=== PATIENT | female | born 1955 ===

== ENCOUNTER 2017-04-06 13:52 | Inpatient (IN) | payer MEDICARE ==
[2017-04-06 13:53] VITALS: BMI 28.8
[2017-04-06] MEDS ORDERED: Levalbuterol 1.25 MG/3 ML Inhal Soln UD INH ONE (14:14)
--- NOTE | 2017-04-06 14:37 | ED PDOC ---
HPI: SOB/CHF/COPD Time Seen by Provider: 04/06/17 14:00 Chief Complaint (Nursing): Shortness Of Breath Chief Complaint (Provider): shortness of breath History Per: Patient (61 y/o female h/o Asthma here with cough/sob ongoing and worsening recently. Patient states she has been using duoneb/singulair for asthma. Has had recent treatment with medrol dose pack. Notes she is anxious when she visits doctors. Denies any chest pain/fevers/chills.) Past Medical History Reviewed: Historical Data, Nursing Documentation, Vital Signs Vital Signs: Last Vital Signs Temp 99.9 F H 04/06/17 13:56 Pulse 136 H 04/06/17 13:56 Resp 22 04/06/17 15:11 BP 158/108 H 04/06/17 13:56 Pulse Ox 98 04/06/17 14:46 - Medical History PMH: Anxiety, Arthritis (KNEES AND HANDS WHEN COLD), Asthma, COPD, Depression, Diabetes, HTN, Hypercholesterolemia, Kidney Stones (RIGHT), Peripheral Edema, Chronic Kidney Disease Denies: Atrial Fibrillation, HIV - Family History Family History: States: Unknown Family Hx - Immunization History Hx Tetanus Toxoid Vaccination: No Hx Influenza Vaccination: Yes Hx Pneumococcal Vaccination: Yes - Home Medications Home Medications: Ambulatory Orders Medication Instructions Recorded Albuterol 0.083% [Albuterol 0.083% 3 ml IH Q6H PRN 11/04/15 Inhal Sugar (2.5 mg/3 ml) UD] Allopurinol 300 mg PO DAILY 11/04/15 Bepotastine Besilate [Bepreve] 1 drop BOTHEYES DAILY 11/04/15 Lisinopril [Zestril] 40 mg PO DAILY 11/04/15 Montelukast [Singulair] 10 mg PO HS 11/04/15 Rosuvastatin Calcium [Crestor] 20 mg PO HS 11/04/15 Albuterol HFA [Ventolin HFA 90 2 puff IH Q4H PRN 10/16/16 mcg/actuation (8 g)] Aspirin [Ecotrin] 81 mg PO DAILY 10/16/16 Doxazosin [Cardura] 2 mg PO HS 10/16/16 Linagliptin/Metformin HCl 1 tab PO DAILY 10/16/16 [Jentadueto 2.5 mg-1000 mg Tab] Olmesartan/Hydrochlorothiazide 1 tab PO DAILY 10/16/16 [Benicar Hct 40-12.5 mg Tablet] Budesonide/Formoterol Fumarate 1 puff IH Q12H 04/06/17 [Symbicort 160-4.5 Mcg Inhaler] - Allergies Allergies/Adverse Reactions: Allergies Allergy/AdvReac Type Severity Reaction Status Date / Time POLLEN Allergy Intermediate ITCHING Uncoded 04/25/14 14:59 Review of Systems ROS Statement: Except As Marked, All Systems Reviewed And Found Negative Respiratory: Positive for: Cough, Shortness of Breath Physical Exam - Reviewed Nursing Documentation Reviewed: Yes Vital Signs Reviewed: Yes - Physical Exam Appears: Positive for: Well, Non-toxic, No Acute Distress Head Exam: Positive for: ATRAUMATIC, NORMAL INSPECTION, NORMOCEPHALIC Skin: Positive for: Normal Color, Warm, DRY Eye Exam: Positive for: EOMI, Normal appearance, PERRL ENT: Positive for: Normal ENT Inspection Neck: Positive for: Normal, Painless ROM Cardiovascular/Chest: Positive for: Regular Rate, Rhythm Respiratory: Positive for: Normal Breath Sounds, Wheezing Gastrointestinal/Abdominal: Positive for: Normal Exam, Bowel Sounds, Soft Back: Positive for: Normal Inspection Extremity: Positive for: Normal ROM Neurologic/Psych: Positive for: Alert, Oriented - Laboratory Results Result Diagrams: 04/06/17 14:40 04/06/17 14:40 - ECG O2 Sat by Pulse Oximetry: 98 - Progress ED Course And Treament: Patient has minimal respiratory distress noted in ED, able to talk in full sentences. xopenex x 1 treatment solumedrol 125 mg iv x 1 dose ativan 0.5mg iv x 1 dose cxr: neg d/w dr. sterling admit for asthma exacerbation and tachycardia Disposition - Clinical Impression Clinical Impression: Asthma exacerbation - Patient ED Disposition Is Patient to be Admitted: Yes - Disposition Disposition Time: 18:03 Condition: FAIR
[2017-04-06 15:03] LABS: BASO # 0.1 K/uL (0.0-0.2); BASO % 1.1 % (0.0-2.0); EOS % 11.3 % (0.0-4.0); HEMOGLOBIN 11.8 g/dL (12.0-16.0); LYMPH # 1.3 K/uL (1.0-4.3); LYMPH % 14.1 % (20.0-40.0); MEAN CELL VOLUME 90.9 fl (81.0-99.0); MEAN CORPUSCULAR HEMOGLOBIN 30.4 pg (27.0-31.0); MEAN CORPUSCULAR HGB CONC 33.5 g/dL (33.0-37.0); MEAN PLATELET VOLUME 9.1 fl (7.2-11.7); MONO # 0.6 K/uL (0.0-0.8); MONO % 6.5 % (0.0-10.0); NEUT # 6.1 K/uL (1.8-7.0); RBC 3.87 Mil/uL (3.80-5.20); RED CELL DISTRIBUTION WIDTH 14.2 % (11.5-14.5); WHITE BLOOD COUNT 9.2 K/uL (4.8-10.8)
[2017-04-06 15:11] LABS: ALB/GLOB RATIO 1.5 (1.0-2.1); ALBUMIN 4.3 g/dL (3.5-5.0); ALT/SGPT 59 U/L (9-52); AST/SGOT 46 U/L (14-36); BLOOD UREA NITROGEN 19 mg/dl (7-17); CALCIUM 9.8 mg/dL (8.4-10.2); GFR AFRICAN-AMERICAN 55; GFR NON-AFRICAN AMERICAN 45
[2017-04-06 15:21] LABS: B-TYPE NATRIURETIC PEPTIDE 53.9 pg/ml (0-900)
--- NOTE | 2017-04-06 17:05 | RAD ---
HISTORY: Shortness of breath. COMPARISON: 10/20/2016. FINDINGS: LUNGS: No active pulmonary disease. PLEURA: No significant pleural effusion identified, no pneumothorax apparent. CARDIOVASCULAR: No radiographic findings to suggest acute or significant cardiovascular disease. OSSEOUS STRUCTURES: No significant abnormalities. VISUALIZED UPPER ABDOMEN: Normal. OTHER FINDINGS: None. IMPRESSION: No active disease. No significant interval change compared to the prior examination(s).
--- NOTE | 2017-04-06 20:42 | CARD ---
APPROVED REPORT EKG Measurement Heart [id number] ID [id number] <Conclusion> Sinus tachycardia Nonspecific ST and T wave abnormality Abnormal ECG
[2017-04-07] MEDS ORDERED: Albuterol 0.083% Inhal Sol (2.5 mg/3 mL) UD IH PRN (00:40)
[2017-04-07] MEDS ORDERED: Albuterol HFA 90 mcg/actuation (8 g) IH PRN (00:40)
[2017-04-07] MEDS ORDERED: Patient's Own Med (Budesonide/Formoterol Fumarate [Symbicort 160-4.5 Mcg Inhaler] 1 PUFF) IH SCH (00:45)
[2017-04-07] MEDS: methylPREDNISolone 40 MG in Sodium Chloride 0.9% 50 ML IVPB SCH ×3 (02:10→21:53)
[2017-04-07 06:55] LABS: HEMOGLOBIN 11.9 g/dL (12.0-16.0); MEAN CELL VOLUME 92.2 fl (81.0-99.0); MEAN CORPUSCULAR HEMOGLOBIN 29.6 pg (27.0-31.0); MEAN CORPUSCULAR HGB CONC 32.1 g/dL (33.0-37.0); RBC 4.01 Mil/uL (3.80-5.20); WHITE BLOOD COUNT 13.7 K/uL (4.8-10.8)
[2017-04-07 06:56] LABS: ALB/GLOB RATIO 1.5 (1.0-2.1); ALBUMIN 4.3 g/dL (3.5-5.0); CALCIUM 9.9 mg/dL (8.4-10.2)
[2017-04-07] MEDS: Fluticasone-Salmeterol 250-50mcg Diskus IH SCH ×2 (08:58→21:52)
[2017-04-07] MEDS: Enoxaparin 40 mg Syringe SC SCH (08:59)
[2017-04-07] MEDS ORDERED: BEPOTASTINE BESILATE BOTHEYES SCH (09:00)
[2017-04-07] MEDS ORDERED: Enoxaparin 30 mg Syringe SC SCH (09:00)
[2017-04-07] MEDS ORDERED: Patient's Own Med (Olmesartan/Hydrochlorothiazide [Benicar Hct 40-12.5 Mg Tablet] 1 TAB) PO SCH ×2 (09:00)
[2017-04-07] MEDS: Insulin Regular 100 units/ml SC SCH ×4 (09:07→21:54)
--- NOTE | 2017-04-07 11:18 | CP.PCM.HP ---
<VaughnjamesTunde - Last Filed: 04/07/17 13:24> History of Present Illness - History of Present Illness History of Present Illness: 61 y/o female with PMHx remarkable COPD, HTN, HLD, DM, Arthritis, anxiety, and Asthma complaining of worsening cough and sob for the past several days. Patient states she has been using duoneb/singulair for asthma but it has only been alleviating symptoms minimally. Has had recent treatment with medrol dose pack. Denies any fever/chills, headaches, dizziness, lightheadness, CP/ Palpitatons/LUTHER, orthopnea, N/V/D/C, urinary symptoms. Present on Admission - Present on Admission Any Indicators Present on Admission: No Review of Systems - Review of Systems All systems: reviewed and no additional remarkable complaints except - Constitutional Constitutional: As Per HPI Past Patient History - Past Medical History & Family History Past Medical History?: Yes Past Family History: Reviewed and not pertinent - Past Social History Smoking Status: Former Smoker Alcohol: None Drugs: Denies Home Situation {Lives}: With Family Domestic Violence: Negative - CARDIAC Hx Cardiac Disorders: Yes Hx Atrial Fibrillation: No Hx Hypercholesterolemia: Yes Hx Hypertension: Yes Hx Peripheral Edema: Yes - PULMONARY Hx Respiratory Disorders: Yes Hx Asthma: Yes Hx Chronic Obstructive Pulmonary Disease (COPD): Yes - NEUROLOGICAL Hx Neurological Disorder: No Other/Comment: c/o occasional anxiety and depression - HEENT Hx HEENT Problems: Yes Hx Cataracts: Yes (have been corrected) Other/Comment: Allergic Rhinitis - RENAL Hx Chronic Kidney Disease: No Other/Comment: stone removal in the past - ENDOCRINE/METABOLIC Hx Endocrine Disorders: Yes Hx Diabetes Mellitus Type 2: Yes - HEMATOLOGICAL/ONCOLOGICAL Hx Blood Disorders: Yes Hx Human Immunodeficiency Virus (HIV): No - INTEGUMENTARY Hx Dermatological Problems: No - MUSCULOSKELETAL/RHEUMATOLOGICAL Hx Musculoskeletal Disorders: Yes Hx Arthritis: Yes (KNEES AND HANDS WHEN COLD) Hx Falls: No - GASTROINTESTINAL Hx Gastrointestinal Disorders: No - GENITOURINARY/GYNECOLOGICAL Hx Genitourinary Disorders: No Hx Urinary Tract Infection: No - PSYCHIATRIC Hx Psychophysiologic Disorder: Yes Hx Anxiety: Yes Hx Depression: Yes - SURGICAL HISTORY Hx Surgeries: Yes Hx Cataract Extraction: Yes (BILATERAL) Other/Comment: CYSTO WITH STENTS X2 - ANESTHESIA Hx Anesthesia: Yes Hx Anesthesia Reactions: No Hx Malignant Hyperthermia: No Meds Allergies/Adverse Reactions: Allergies Allergy/AdvReac Type Severity Reaction Status Date / Time POLLEN Allergy Intermediate ITCHING Uncoded 04/25/14 14:59 Physical Exam - Constitutional Appears: Non-toxic, No Acute Distress - Head Exam Head Exam: ATRAUMATIC, NORMOCEPHALIC - Eye Exam Eye Exam: EOMI Pupil Exam: PERRL - ENT Exam ENT Exam: Mucous Membranes Moist - Respiratory Exam Respiratory Exam: Accessory Muscle Use, Decreased Breath Sounds, Wheezes, NORMAL BREATHING PATTERN. absent: Clear to Auscultation Bilateral, Rales, Rhonchi, Respiratory Distress - Cardiovascular Exam Cardiovascular Exam: REGULAR RHYTHM, RRR, +S1, +S2. absent: Tachycardia, Gallop , JVD, Rubs, Systolic Murmur - GI/Abdominal Exam GI & Abdominal Exam: Normal Bowel Sounds, Soft. absent: Distended, Firm, Guarding, Hernia, Rebound, Rigid, Tenderness - Extremities Exam Extremities exam: Positive for: normal inspection, pedal pulses present. Negative for: calf tenderness, pedal edema, tenderness - Neurological Exam Neurological exam: Alert, CN II-XII Intact, Oriented x3 Results - Vital Signs Recent Vital Signs: Last Vital Signs Temp 98.3 F 04/07/17 08:13 Pulse 93 H 04/07/17 08:59 Resp 18 04/07/17 08:59 BP 130/78 04/07/17 08:59 Pulse Ox 99 04/07/17 08:59 - Labs Result Diagrams: 04/07/17 05:05 04/07/17 05:05 Labs: Laboratory Results - last 24 hr 04/06/17 04/07/17 04/07/17 21:40 05:05 05:05 WBC 13.7 H RBC 4.01 Hgb 11.9 L Hct 36.9 MCV 92.2 MCH 29.6 MCHC 32.1 L RDW 14.0 Plt Count 191 Sodium 142 Potassium 4.1 Chloride 106 Carbon Dioxide 26 Anion Gap 14 BUN 20 H Creatinine 1.2 Est GFR ( Amer) 55 Est GFR (Non-Af Amer) 45 POC Glucose (mg/dL) 338 H Random Glucose 173 H Calcium 9.9 Total Bilirubin 0.6 AST 39 H ALT 56 H Alkaline Phosphatase 83 Total Protein 7.2 Albumin 4.3 Globulin 2.8 Albumin/Globulin Ratio 1.5 04/07/17 05:12 WBC RBC Hgb Hct MCV MCH MCHC RDW Plt Count Sodium Potassium Chloride Carbon Dioxide Anion Gap BUN Creatinine Est GFR ( Amer) Est GFR (Non-Af Amer) POC Glucose (mg/dL) 156 H Random Glucose Calcium Total Bilirubin AST ALT Alkaline Phosphatase Total Protein Albumin Globulin Albumin/Globulin Ratio Assessment & Plan (1) Asthma exacerbation Status: Acute Priority: Medium (2) Hypertension Assessment and Plan: c/w home meds Status: Chronic Priority: Low (5) DVT prophylaxis Assessment and Plan: -lovenox 40mg SC QD Status: Acute <Hermelindo Andrew - Last Filed: 04/09/17 09:06> Results - Vital Signs Recent Vital Signs: Last Vital Signs Temp 98.2 F 04/09/17 08:13 Pulse 75 04/09/17 08:13 Resp 18 04/09/17 08:13 BP 123/71 04/09/17 08:13 Pulse Ox 98 04/09/17 08:13 - Labs Result Diagrams: 04/09/17 05:00 04/07/17 05:05 Labs: Laboratory Results - last 24 hr 04/08/17 04/08/17 04/08/17 11:44 16:27 21:53 WBC RBC Hgb Hct MCV MCH MCHC RDW Plt Count MPV Neut % (Auto) Lymph % (Auto) Brantley % (Auto) Eos % (Auto) Baso % (Auto) Neut # Lymph # Brantley # Eos # Baso # POC Glucose (mg/dL) 215 H 230 H 214 H 04/09/17 04/09/17 05:00 05:29 WBC 18.9 H RBC 3.63 L Hgb 11.1 L Hct 33.6 L MCV 92.5 MCH 30.5 MCHC 32.9 L RDW 14.6 H Plt Count 184 MPV 9.4 Neut % (Auto) 87.5 H Lymph % (Auto) 5.7 L Brantley % (Auto) 6.7 Eos % (Auto) 0.0 Baso % (Auto) 0.1 Neut # 16.6 H Lymph # 1.1 Brantley # 1.3 H Eos # 0.0 Baso # 0.0 POC Glucose (mg/dL) 137 H Assessment & Plan - Assessment and Plan (Free Text) Plan: I was present during evaluation and discussed with DR Shrestha re plans of care and treatment. Hermelindo Andrew M.D.
--- NOTE | 2017-04-07 14:07 | PQF GENQUE ---
This form is a permanent part of the medical record 04/07/17 Dr. Andrew, Please clarify the type of asthma if known. Documentation of a history of COPD and Asthma. Diagnosis includes Asthma Exacerbation. Patient presents with worsening cough and sob for several days. Treated as an outpatient with Duonebs , Singulair and recent Medrol dose pack. Clarification of your documentation is requested to better reflect the severity of illness and intensity of treatment of your patient. PHYSICIAN'S RESPONSE Type of Asthma: [] Childhood [] Cough variant [] Exercise induced [] Late onset [] Mild intermittent [] Mild persistent [] Moderate persistent [] Severe persistent [] With bronchitis(please clarify acuity of bronchitis) [] With chronic lung disease (please document specific chronic lung disease ) [] Other (please specify) [] Clinically unable to determine [] Unknown Based on your medical judgment of the clinical indicators outlined above please clarify the following: [] Practitioner response [] If unable to determine, please check the box, sign and date. Present On Admission (POA) Indicator: [] Present at the time of admission [] Not present at the time of admission [] Clinically Undetermined In responding to this query, please exercise your independent professional judgment. The fact that a question is asked does not imply that any particular answer is desired or expected. Thank you for your clarification on this documentation. If you have any questions please call:ext [phone] * Thank you, Vinita Ruiz RN CD[facility]
--- NOTE | 2017-04-07 14:12 | PQF DM ---
This form is a permanent part of the medical record 04/07/17 Dr. Andrew, Would you please further clarify the diagnosis of DM Clarification of your documentation is requested to better reflect the severity of illness and intensity of treatment of your patient. Indicators present: [x] Documented diagnosis of Diabetes [] Documented condition [] A1C results [] Diabetic medications [x] Elevated blood glucose [] Nutritional consults [] ADA diet [] Other: [] Location in the medical record that reflects the above clinical findings:[] Treatment Provided: PHYSICIAN'S RESPONSE Based on your medical judgment of the clinical indicators outlined above, are you treating this patient for a known or suspected: [] Diabetes Mellitus, Type I [] Controlled [] Uncontrolled [] Diabetes Mellitus, Type II [] Controlled [] Uncontrolled [] Diabetes, Steroid induced [] Controlled [] Uncontrolled [] Diabetic conditions/complications [] Other, please indicate [] [] If Unable to Determine, please check the box, sign and date. Present On Admission (POA) Indicator: [] Present at the time of admission [] Not present at the time of admission [] Clinically Undetermined In responding to this query, please exercise your independent professional judgment. The fact that a question is asked does not imply that any particular answer is desired or expected. Thank you for your clarification on this documentation. If you have any questions please call:ext [phone] * Thank you, Vinita Ruiz RN CDMP [facility]
[2017-04-07] MEDS ORDERED: Levalbuterol 0.63 MG/3 ML Inhal Soln UD INH PRN (15:34)
[2017-04-07] MEDS: Pantoprazole 40 mg EC Tab PO SCH (16:35)
[2017-04-07] MEDS: Patient's Own Med (Linagliptin/Metformin Hcl [Jentadueto 2.5 Mg-1000 Mg Tab] 1 TAB) PO SCH (16:35)
[2017-04-08 07:29] LABS: HEMOGLOBIN 11.2 g/dL (12.0-16.0); MEAN CELL VOLUME 92.2 fl (81.0-99.0); MEAN CORPUSCULAR HEMOGLOBIN 30.2 pg (27.0-31.0); MEAN CORPUSCULAR HGB CONC 32.7 g/dL (33.0-37.0); RBC 3.71 Mil/uL (3.80-5.20); RED CELL DISTRIBUTION WIDTH 14.3 % (11.5-14.5)
[2017-04-08] MEDS: BEPOTASTINE BESILATE BOTHEYES SCH (09:16)
[2017-04-08] MEDS: Fluticasone-Salmeterol 250-50mcg Diskus IH SCH ×2 (09:16→21:45)
[2017-04-08] MEDS: Insulin Regular 100 units/ml SC SCH ×4 (09:17→23:22)
[2017-04-08] MEDS: Pantoprazole 40 mg EC Tab PO SCH (09:18)
[2017-04-08] MEDS: Patient's Own Med (Linagliptin/Metformin Hcl [Jentadueto 2.5 Mg-1000 Mg Tab] 1 TAB) PO SCH (09:18)
[2017-04-08] MEDS: Enoxaparin 40 mg Syringe SC SCH (09:18)
[2017-04-08] MEDS: methylPREDNISolone 40 MG in Sodium Chloride 0.9% 50 ML IVPB SCH (09:18)
--- NOTE | 2017-04-08 11:44 | CP.PCM.PN ---
<Tunde Shrestha - Last Filed: 04/08/17 14:15> Subjective - Date & Time of Evaluation Date of Evaluation: 04/08/17 Time of Evaluation: 11:44 - Subjective Subjective: pt seen and examined at bedside. No acute events overnight. Pt reports feeling a little better but still complains of cough and SOB. Afebrile. No phelgm production. No other complaints. Denies fever/chills, headaches, CP/Palpitations , N/V/D/C, urinary symptoms, numbness/tingling. Objective - Vital Signs/Intake and Output Vital Signs (last 24 hours): Temp Pulse Resp BP Pulse Ox 98.2 F 78 18 117/68 98 04/08/17 09:00 04/08/17 09:19 04/08/17 09:16 04/08/17 09:19 04/08/17 09:16 - Medications Medications: Current Medications Allopurinol (Zyloprim) 300 mg PO DAILY [facility] Last Admin: 04/08/17 09:19 Dose: 300 mg Aspirin (Ecotrin) 81 mg PO DAILY [facility] Last Admin: 04/08/17 09:17 Dose: 81 mg Atorvastatin Calcium (Lipitor) 40 mg PO HS [facility] Last Admin: 04/07/17 21:52 Dose: 40 mg Diltiazem HCl (Cardizem) 30 mg PO Q8H [facility] Last Admin: 04/08/17 09:16 Dose: 30 mg Enoxaparin Sodium (Lovenox) 40 mg SC DAILY [facility] PRN Reason: Protocol Last Admin: 04/08/17 09:18 Dose: 40 mg Home Med (Linagliptin/Metformin Hcl [Jentadueto 2.5 Mg-1000 Mg Tab]) 1 tab PO DAILY [facility] Last Admin: 04/08/17 09:18 Dose: 1 tab Home Med (Bepotastine Besilate [Bepreve]) 1 drop BOTHEYES DAILY [facility] Last Admin: 04/08/17 09:16 Dose: 1 drop Methylprednisolone 40 mg/ (Sodium Chloride) 50 mls @ 100 mls/hr IV DAILY [facility] Insulin Human Regular (Humulin R) 0 units SC ACHS [facility] PRN Reason: Protocol Last Admin: 04/08/17 09:17 Dose: 2 unit Levalbuterol HCl (Xopenex) 0.63 mg INH RQ8 PRN PRN Reason: Shortness of Breath Last Admin: 04/07/17 22:37 Dose: 0.63 mg Lisinopril (Zestril) 40 mg PO DAILY [facility] Last Admin: 04/08/17 09:19 Dose: 40 mg Methylprednisolone (Medrol) 4 mg PO DAILY [facility] Montelukast Sodium (Singulair) 10 mg PO HS [facility] Last Admin: 04/07/17 21:52 Dose: 10 mg Pantoprazole Sodium (Protonix Ec Tab) 40 mg PO DAILY [facility] Last Admin: 04/08/17 09:18 Dose: 40 mg Fluticasone/Salmeterol (Advair Diskus 250/50) 1 puff IH Q12 [facility] Last Admin: 04/08/17 09:16 Dose: 1 puff - Labs Labs: 04/08/17 05:00 04/07/17 05:05 - Constitutional Appears: Non-toxic, No Acute Distress - Head Exam Head Exam: ATRAUMATIC, NORMOCEPHALIC - Eye Exam Eye Exam: EOMI Pupil Exam: PERRL - ENT Exam ENT Exam: Mucous Membranes Moist - Respiratory Exam Respiratory Exam: Decreased Breath Sounds, Wheezes, NORMAL BREATHING PATTERN. absent: Accessory Muscle Use, Clear to Ausculation Bilateral, Rales - Cardiovascular Exam Cardiovascular Exam: REGULAR RHYTHM, RRR, +S1, +S2. absent: Tachycardia, Diastolic murmur, Gallop, JVD, Rubs, Murmur - GI/Abdominal Exam GI & Abdominal Exam: Soft, Normal Bowel Sounds. absent: Tenderness - Neurological Exam Neurological Exam: Alert, Awake, CN II-XII Intact, Oriented x3 Assessment and Plan (1) Asthma exacerbation Assessment & Plan: unknown type of asthma spaced out Solumedrol to 40mg QD Medrol pack PO 4mg QD Status: Acute (2) Hypertension Assessment & Plan: c/w home meds Status: Chronic (3) Leukocytosis, unspecified Assessment & Plan: likely secondary to demargination from Corticosteroid use f/u CBC in am Status: Acute (4) Type 2 diabetes mellitus treated without insulin Assessment & Plan: insulin coverage scale Status: Chronic (5) DVT prophylaxis Assessment & Plan: Lovenox 40mg SC QD Status: Acute <Hermelindo Andrew - Last Filed: 04/09/17 09:07> Objective - Vital Signs/Intake and Output Vital Signs (last 24 hours): Temp Pulse Resp BP Pulse Ox 98.2 F 75 18 123/71 98 04/09/17 08:13 04/09/17 08:13 04/09/17 08:13 04/09/17 08:13 04/09/17 08:13 - Medications Medications: Current Medications Allopurinol (Zyloprim) 300 mg PO DAILY [facility] Last Admin: 04/08/17 09:19 Dose: 300 mg Aspirin (Ecotrin) 81 mg PO DAILY [facility] Last Admin: 04/08/17 09:17 Dose: 81 mg Atorvastatin Calcium (Lipitor) 40 mg PO HS [facility] Last Admin: 04/08/17 21:45 Dose: 40 mg Diltiazem HCl (Cardizem) 30 mg PO Q8H [facility] Last Admin: 04/09/17 00:23 Dose: 30 mg Enoxaparin Sodium (Lovenox) 40 mg SC DAILY [facility] PRN Reason: Protocol Last Admin: 04/08/17 09:18 Dose: 40 mg Guaifenesin/Dextromethorphan (Robitussin Dm) 10 ml PO Q6 PRN PRN Reason: Cough Last Admin: 04/08/17 21:46 Dose: 10 ml Home Med (Linagliptin/Metformin Hcl [Jentadueto 2.5 Mg-1000 Mg Tab]) 1 tab PO DAILY [facility] Last Admin: 04/08/17 09:18 Dose: 1 tab Home Med (Bepotastine Besilate [Bepreve]) 1 drop BOTHEYES DAILY [facility] Last Admin: 04/08/17 09:16 Dose: 1 drop Methylprednisolone 40 mg/ (Sodium Chloride) 50 mls @ 100 mls/hr IV DAILY [facility] Last Admin: 04/08/17 12:51 Dose: Not Given Insulin Human Regular (Humulin R) 0 units SC ACHS [facility] PRN Reason: Protocol Last Admin: 04/09/17 06:32 Dose: Not Given Levalbuterol HCl (Xopenex) 0.63 mg INH RQ8 PRN PRN Reason: Shortness of Breath Last Admin: 04/07/17 22:37 Dose: 0.63 mg Lisinopril (Zestril) 40 mg PO DAILY [facility] Last Admin: 04/08/17 09:19 Dose: 40 mg Methylprednisolone (Medrol) 4 mg PO DAILY [facility] Last Admin: 04/08/17 12:51 Dose: 4 mg Montelukast Sodium (Singulair) 10 mg PO HS [facility] Last Admin: 04/08/17 21:45 Dose: 10 mg Pantoprazole Sodium (Protonix Ec Tab) 40 mg PO DAILY [facility] Last Admin: 04/08/17 09:18 Dose: 40 mg Fluticasone/Salmeterol (Advair Diskus 250/50) 1 puff IH Q12 [facility] Last Admin: 04/08/17 21:45 Dose: 1 puff - Labs Labs: 04/09/17 05:00 04/07/17 05:05 Assessment and Plan (1) Asthma exacerbation Status: Acute (2) CKD stage 1 due to type 2 diabetes mellitus Status: Acute (3) Diabetes mellitus type 2 in obese Status: Acute (4) Hypertension Status: Chronic - Assessment and Plan (Free Text) Plan: discussed with Dr. Fady hilario plans of care and mgt.
[2017-04-08] MEDS: methylPREDNISolone 40 MG in Sodium Chloride 0.9% 50 ML IV SCH (12:51)
[2017-04-08] MEDS ORDERED: guaiFENesin DM 200 mg-20 mg/10 ml UD PO PRN (21:16)
[2017-04-09 00:35] VITALS: RESP 18
[2017-04-09] MEDS: Insulin Regular 100 units/ml SC SCH ×2 (06:32→13:11)
--- NOTE | 2017-04-09 06:55 | PQF GENQUE ---
This form is a permanent part of the medical record 04/09/17 Dr. Andrew, Would you please clarify if there is an associated diagnosis to go along with the GFR. If CKD is ruled in please clarify the stage. Patient with a history of DM, COPD is admitted with an exacerbation of asthma. ER documentation of a history of CKD. BUN 19-20, creatinine 1.2 with a GFR of 45. Clarification of your documentation is requested to better reflect the severity of illness and intensity of treatment of your patient. Indicators present [] Specify: [] [] Specify: [] [] Specify: [] [] Specify: [] Location in the medical record that reflects the above clinical findings: [] Treatment Provided: [] PHYSICIAN'S RESPONSE Based on your medical judgment of the clinical indicators outlined above please clarify the following: [] Practitioner response [] If unable to determine, please check the box, sign and date. Present On Admission (POA) Indicator: [] Present at the time of admission [] Not present at the time of admission [] Clinically Undetermined In responding to this query, please exercise your independent professional judgment. The fact that a question is asked does not imply that any particular answer is desired or expected. Thank you for your clarification on this documentation. If you have any questions please call:ext [phone] * Thank you, Vinita Ruiz RN [facility]
[2017-04-09 07:11] LABS: BASO % 0.1 % (0.0-2.0); HEMOGLOBIN 11.1 g/dL (12.0-16.0); LYMPH # 1.1 K/uL (1.0-4.3); LYMPH % 5.7 % (20.0-40.0); MEAN CELL VOLUME 92.5 fl (81.0-99.0); MEAN CORPUSCULAR HEMOGLOBIN 30.5 pg (27.0-31.0); MEAN CORPUSCULAR HGB CONC 32.9 g/dL (33.0-37.0); MEAN PLATELET VOLUME 9.4 fl (7.2-11.7); MONO # 1.3 K/uL (0.0-0.8); MONO % 6.7 % (0.0-10.0); NEUT # 16.6 K/uL (1.8-7.0); NEUT % 87.5 % (50.0-75.0); NRBC % 0.1 % (0.0-0.0); PLATELET COUNT 184 K/uL (130-400); RBC 3.63 Mil/uL (3.80-5.20); RED CELL DISTRIBUTION WIDTH 14.6 % (11.5-14.5); WHITE BLOOD COUNT 18.9 K/uL (4.8-10.8)
[2017-04-09] MEDS: Fluticasone-Salmeterol 250-50mcg Diskus IH SCH (09:07)
[2017-04-09] MEDS: BEPOTASTINE BESILATE BOTHEYES SCH (09:07)
[2017-04-09] MEDS: Enoxaparin 40 mg Syringe SC SCH (09:09)
[2017-04-09] MEDS: Patient's Own Med (Linagliptin/Metformin Hcl [Jentadueto 2.5 Mg-1000 Mg Tab] 1 TAB) PO SCH (09:11)
[2017-04-09] MEDS: methylPREDNISolone 40 MG in Sodium Chloride 0.9% 50 ML IV SCH (10:08)
[2017-04-09 10:50] LABS: ANISOCYTOSIS SLIGHT; HYPOCHROMIC SLIGHT; LYMPHOCYTE 7 % (20-50); MONOCYTE 3 % (0-10); NEUTROPHIL 90 % (42-75); PLATELET ESTIMATE NORMAL (NORMAL); TOTAL CELLS COUNTED 100
[2017-04-09 10:51] LABS: HYPERSEGMENTATION PRESENT; OVALOCYTES SLIGHT
--- NOTE | 2017-04-09 10:54 | CP.PCM.DIS ---
Provider - Provider Date of Admission: 04/06/17 18:06 Attending physician: Hermelindo Andrew MD Time Spent in preparation of Discharge (in minutes): 35 Diagnosis - Discharge Diagnosis (1) Asthma exacerbation Status: Acute Priority: Medium Hospital Course - Lab Results Lab Results: Most Recent Lab Values WBC 18.9 K/uL (4.8-10.8) H 04/09/17 05:00 RBC 3.63 Mil/uL (3.80-5.20) L 04/09/17 05:00 Hgb 11.1 g/dL (12.0-16.0) L 04/09/17 05:00 Hct 33.6 % (34.0-47.0) L 04/09/17 05:00 MCV 92.5 fl (81.0-99.0) 04/09/17 05:00 MCH 30.5 pg (27.0-31.0) 04/09/17 05:00 MCHC 32.9 g/dL (33.0-37.0) L 04/09/17 05:00 RDW 14.6 % (11.5-14.5) H 04/09/17 05:00 Plt Count 184 K/uL (130-400) 04/09/17 05:00 MPV 9.4 fl (7.2-11.7) 04/09/17 05:00 Neut % (Auto) 87.5 % (50.0-75.0) H 04/09/17 05:00 Lymph % (Auto) 5.7 % (20.0-40.0) L 04/09/17 05:00 [place] % (Auto) 6.7 % (0.0-10.0) 04/09/17 05:00 Eos % (Auto) 0.0 % (0.0-4.0) 04/09/17 05:00 Baso % (Auto) 0.1 % (0.0-2.0) 04/09/17 05:00 Neut # 16.6 K/uL (1.8-7.0) H 04/09/17 05:00 Lymph # 1.1 K/uL (1.0-4.3) 04/09/17 05:00 [place] # 1.3 K/uL (0.0-0.8) H 04/09/17 05:00 Eos # 0.0 K/uL (0.0-0.7) 04/09/17 05:00 Baso # 0.0 K/uL (0.0-0.2) 04/09/17 05:00 Neutrophils % (Manual) 90 % (42-75) H 04/09/17 05:00 Lymphocytes % (Manual) 7 % (20-50) L 04/09/17 05:00 Monocytes % (Manual) 3 % (0-10) 04/09/17 05:00 Hypersegmented Polys Present 04/09/17 05:00 Platelet Estimate Normal (NORMAL) 04/09/17 05:00 Hypochromasia (manual) Slight 04/09/17 05:00 Anisocytosis (manual) Slight 04/09/17 05:00 Ovalocytes Slight 04/09/17 05:00 Sodium 142 mmol/l (132-148) 04/07/17 05:05 Potassium 4.1 MMOL/L (3.6-5.0) 04/07/17 05:05 Chloride 106 mmol/L (98-107) 04/07/17 05:05 Carbon Dioxide 26 mmol/L (22-30) 04/07/17 05:05 Anion Gap 14 (10-20) 04/07/17 05:05 BUN 20 mg/dl (7-17) H 04/07/17 05:05 Creatinine 1.2 mg/dL (0.7-1.2) 04/07/17 05:05 Est GFR ( Amer) 55 04/07/17 05:05 Est GFR (Non-Af Amer) 45 04/07/17 05:05 POC Glucose (mg/dL) 137 mg/dL (65-110) H 04/09/17 05:29 Random Glucose 173 mg/dL (65-105) H 04/07/17 05:05 Calcium 9.9 mg/dL (8.4-10.2) 04/07/17 05:05 Total Bilirubin 0.6 mg/dl (0.2-1.3) 04/07/17 05:05 AST 39 U/L (14-36) H 04/07/17 05:05 ALT 56 U/L (9-52) H 04/07/17 05:05 Alkaline Phosphatase 83 U/L (38-126) 04/07/17 05:05 Troponin I < 0.0120 ng/mL (0.00-0.120) 04/06/17 14:40 NT-Pro-B Natriuret Pep 53.9 pg/ml (0-900) 04/06/17 14:40 Total Protein 7.2 G/DL (6.3-8.2) 04/07/17 05:05 Albumin 4.3 g/dL (3.5-5.0) 04/07/17 05:05 Globulin 2.8 gm/dL (2.2-3.9) 04/07/17 05:05 Albumin/Globulin Ratio 1.5 (1.0-2.1) 04/07/17 05:05 - Hospital Course Hospital Course: 61 y/o female with PMHx remarkable COPD, HTN, HLD, DM, Arthritis, anxiety, and Asthma complaining of worsening cough and sob for the past several days. Patient states she has been using duoneb/singulair for asthma but it has only been alleviating symptoms minimally. Has had recent treatment with medrol dose pack. Denies any fever/chills, headaches, dizziness, lightheadness, CP/ Palpitatons/LUTHER, orthopnea, N/V/D/C, urinary symptoms. Hospital Course: pt was started on asthma tx with duo-nebs and corticosteroids. She was advanced each day with improvement. No acute events during stay and the pt tolerated the treatments w/o complications. After an uneventful hospital stay, she was discharged in stable condition. Discharge Exam - Head Exam Head Exam: ATRAUMATIC, NORMOCEPHALIC - Eye Exam Eye Exam: EOMI Pupil Exam: PERRL - Respiratory Exam Respiratory Exam: Clear to PA & Lateral, NORMAL BREATHING PATTERN, UNREMARKABLE. absent: Accessory Muscle Use, Decreased Breath Sounds, Rales, Rhonchi, Wheezes, Respiratory Distress - Cardiovascular Exam Cardiovascular Exam: REGULAR RHYTHM, RRR, +S1, +S2. absent: Tachycardia, Gallop , JVD, Rubs, Systolic Murmur - GI/Abdominal Exam GI & Abdominal Exam: Normal Bowel Sounds, Soft, Unremarkable - Extremities Exam Extremities exam: normal inspection - Neurological Exam Neurological exam: Alert, CN II-XII Intact, Oriented x3, Reflexes Normal - Skin Skin Exam: Dry, Intact, Warm Discharge Plan - Discharge Medications Prescriptions: diltiaZEM [Cardizem] 30 mg PO Q8H #60 tab Fluticasone/Salmeterol 250/50 [Advair Diskus 250/50] 1 puff IH Q12 #1 puff guaiFENesin/Dextromethorphan [Robitussin DM] 10 ml PO Q6 PRN #20 PRN Reason: Cough methylPREDNISolone [Medrol] 4 mg PO DAILY #1 tab - Follow Up Plan Condition: STABLE Disposition: HOME/ ROUTINE
[2017-04-09 12:12] VITALS: BP 117/71; PULSE 86; TEMP 97.9; O2SAT 97
[2017-04-09] MEDS: Pantoprazole 40 mg EC Tab PO SCH (13:11)
== END 2017-04-09 13:25 | disposition home or self-care (01) | DRG 191 ==
LOC: H.ER 13:52 → H.ERHOLD 18:06 → H.TEL 22:00
PROVIDERS: ADMIT Family Medicine; ATTEND Family Medicine
PROC: 3E0F7GC Introduction of Other Therapeutic Substance into Respiratory Tract, Via Natural or Artificial Opening (ICD-10-PCS; principal; 2017-04-07)
DX: J44.9 Chronic obstructive pulmonary disease, unspecified (principal); J45.901 Unspecified asthma with (acute) exacerbation; E11.22 Type 2 diabetes mellitus with diabetic chronic kidney disease; I12.9 Hypertensive chronic kidney disease with stage 1 through stage 4 chronic kidney disease, or unspecified chronic kidney disease; M17.0 Bilateral primary osteoarthritis of knee; Z87.442 Personal history of urinary calculi; E66.9 Obesity, unspecified; E78.00 Pure hypercholesterolemia, unspecified; E78.5 Hyperlipidemia, unspecified; F32.9 Major depressive disorder, single episode, unspecified; F41.9 Anxiety disorder, unspecified; N18.1 Chronic kidney disease, stage 1; Z79.51 Long term (current) use of inhaled steroids; Z79.82 Long term (current) use of aspirin; Z79.899 Other long term (current) drug therapy; Z87.891 Personal history of nicotine dependence; Z98.49 Cataract extraction status, unspecified eye; M19.90 Unspecified osteoarthritis, unspecified site

== ENCOUNTER 2017-07-05 12:44 | Inpatient (IN) | payer MEDICARE ==
[~2017-07-05 12:44] MED LIST: MethylPREDNISolone 40 mg Vial IVP SCH
[2017-07-05 12:45] VITALS: BMI 28.8
[2017-07-05] MEDS ORDERED: Albuterol-Ipratrop 3 mg / 0.5 (3 ml) UD INH STA (13:05)
[2017-07-05] MEDS ORDERED: Albuterol-Ipratrop 3 mg / 0.5 (3 ml) UD IH STA ×2 (13:05→13:07)
--- NOTE | 2017-07-05 13:12 | ED PDOC ---
HPI: SOB/CHF/COPD Time Seen by Provider: 07/05/17 12:55 Chief Complaint (Nursing): Flu-like Symptoms Chief Complaint (Provider): Cough, shortness of breath History Per: Patient History/Exam Limitations: no limitations Onset/Duration Of Symptoms: Days (x3) Current Symptoms Are (Timing): Still Present Current Respiratory Medications: Albuterol Associated Symptoms: Productive Cough Additional Complaint(s): Brittany is a 61 y/o female with a past medical history of diabetes, COPD, and asthma, who presents to the ED for worsening shortness of breath for the past 3 days. Patient reports cough productive of yellow phlegm, along with wheezing and rhinorrhea. Taking Albuterol treatments at home without relief. No chest pain, leg pain or swelling, numbness, dizziness, weakness, nausea, vomiting, diarrhea, fever, or chills. PMD: Hermelindo Andrew Past Medical History Reviewed: Historical Data, Nursing Documentation, Vital Signs Vital Signs: Last Vital Signs Temp 98.3 F 07/05/17 12:49 Pulse 119 H 07/05/17 13:30 Resp 24 07/05/17 13:30 BP 141/90 07/05/17 13:30 Pulse Ox 97 07/05/17 14:54 - Medical History PMH: Anxiety, Arthritis (KNEES AND HANDS WHEN COLD), Asthma, COPD, Depression, Diabetes, HTN, Hypercholesterolemia, Kidney Stones (RIGHT), Peripheral Edema Denies: Atrial Fibrillation, HIV, Chronic Kidney Disease - Surgical History Other surgeries: Cataracts, cysto with stents x2 - Family History Family History: States: Unknown Family Hx - Social History Ex-Smoker (has not smoked in the last 12 months): Yes Alcohol: None Drugs: Denies - Immunization History Hx Tetanus Toxoid Vaccination: No Hx Influenza Vaccination: Yes Hx Pneumococcal Vaccination: Yes - Home Medications Home Medications: Ambulatory Orders Medication Instructions Recorded Albuterol 0.083% [Albuterol 0.083% 3 ml IH Q6H PRN 11/04/15 Inhal Sugar (2.5 mg/3 ml) UD] Allopurinol 300 mg PO DAILY 11/04/15 Bepotastine Besilate [Bepreve] 1 drop BOTHEYES DAILY 11/04/15 Lisinopril [Zestril] 40 mg PO DAILY 11/04/15 Montelukast [Singulair] 10 mg PO HS 11/04/15 Rosuvastatin Calcium [Crestor] 20 mg PO HS 11/04/15 Albuterol HFA [Ventolin HFA 90 2 puff IH Q4H PRN 10/16/16 mcg/actuation (8 g)] Aspirin [Ecotrin] 81 mg PO DAILY 10/16/16 Doxazosin [Cardura] 2 mg PO HS 10/16/16 Linagliptin/Metformin HCl 1 tab PO DAILY 10/16/16 [Jentadueto 2.5 mg-1000 mg Tab] Olmesartan/Hydrochlorothiazide 1 tab PO DAILY 10/16/16 [Benicar Hct 40-12.5 mg Tablet] Budesonide/Formoterol Fumarate 1 puff IH Q12H 04/06/17 [Symbicort 160-4.5 Mcg Inhaler] Fluticasone/Salmeterol 250/50 1 puff IH Q12 #1 puff 04/09/17 [Advair Diskus 250/50] diltiaZEM [Cardizem] 30 mg PO Q8H #60 tab 04/09/17 guaiFENesin/Dextromethorphan 10 ml PO Q6 PRN #20 04/09/17 [Robitussin DM] methylPREDNISolone [Medrol] 4 mg PO DAILY #1 tab 04/09/17 - Allergies Allergies/Adverse Reactions: Allergies Allergy/AdvReac Type Severity Reaction Status Date / Time POLLEN Allergy Intermediate ITCHING Uncoded 07/05/17 13:25 Review of Systems ROS Statement: Except As Marked, All Systems Reviewed And Found Negative Constitutional: Negative for: Fever, Chills Cardiovascular: Negative for: Chest Pain Respiratory: Positive for: Cough, Shortness of Breath, Sputum, Wheezing Gastrointestinal: Negative for: Nausea, Vomiting, Abdominal Pain, Diarrhea Musculoskeletal: Negative for: Leg Pain, Other (Edema) Neurological: Negative for: Weakness, Numbness, Headache, Dizziness Physical Exam - Reviewed Nursing Documentation Reviewed: Yes Vital Signs Reviewed: Yes - Physical Exam Appears: Positive for: Non-toxic, No Acute Distress Head Exam: Positive for: ATRAUMATIC, NORMOCEPHALIC Skin: Positive for: Normal Color, Warm, Dry Eye Exam: Positive for: EOMI, Normal appearance, PERRL Neck: Positive for: Normal, Painless ROM, Supple Cardiovascular/Chest: Positive for: Tachycardia (mild). Negative for: Murmur Respiratory: Positive for: Decreased Breath Sounds, Wheezing (bilaterally) Pulses-Dorsalis Pedis (L): 2+ Pulses-Dorsalis Pedis (R): 2+ Gastrointestinal/Abdominal: Positive for: Normal Exam, Soft. Negative for: Tenderness Extremity: Positive for: Normal ROM. Negative for: Tenderness, Pedal Edema, Deformity Neurologic/Psych: Positive for: Alert, Oriented (x3), Other (Speaking full sentences). Negative for: Motor/Sensory Deficits - Laboratory Results Result Diagrams: 07/05/17 13:35 07/05/17 13:35 Interpretation Of Abn Labs: 22 and 1.3 bun and cr - ECG ECG: Positive for: Interpreted By Me, Viewed By Me ECG Rhythm: Positive for: Sinus Tachycardia (mild) O2 Sat by Pulse Oximetry: 97 (RA) Pulse Ox Interpretation: Normal - Radiology X-Ray: Read By Radiologist X-Ray Interpretation: No Acute Disease - Other Rad Chest X-Ray X-Ray: Read By Radiologist X-Ray Interpretation: No acute disease - Progress ED Course And Treament: 1500: Stable. AAOx3. Pain free. Tolerated PO. Will give mag for further tx. Spoke with Dr. Andrew. Will admit for asthma exac and give further orders when pt. reaches floor. Medical Decision Making Medical Decision Making: Time: 13:05 Initial Plan: --EKG --CMP --B-type natriuretic peptide --Magnesium --Phosphorous --Troponin I --CBC --PTT --Prothrombin time --ABG --Urinalysis --Blood culture --Chest x-ray --NS IV 1000 ml at 150 mls/hr --Duoneb INH x3 --Solu-Medrol 125 mg IV --Peak Flow pre/post treatment Scribe Attestation: Documented by Itzel An, acting as a scribe for Murtaza M Freitas MD Provider Scribe Attestation: All medical record entries made by the Scribe were at my direction and personally dictated by me. I have reviewed the chart and agree that the record accurately reflects my personal performance of the history, physical exam, medical decision making, and the department course for this patient. I have also personally directed, reviewed, and agree with the discharge instructions and disposition. Disposition - Clinical Impression Clinical Impression: Asthma exacerbation - Patient ED Disposition Is Patient to be Admitted: Yes Counseled Patient/Family Regarding: Studies Performed, Diagnosis - Disposition Disposition Time: 14:10 Condition: FAIR - Pt Status Changed To: Hospital Disposition Of: Observation - POA Present On Arrival: None
[2017-07-05] MEDS ORDERED: Sodium Chloride 0.9% 1,000 ML IV SCH (13:15)
[2017-07-05 13:56] LABS: BASO # 0.1 K/uL (0.0-0.2); BASO % 1.2 % (0.0-2.0); EOS # 0.9 K/uL (0.0-0.7); EOS % 9.8 % (0.0-4.0); HEMATOCRIT 36.5 % (34.0-47.0); LYMPH # 1.1 K/uL (1.0-4.3); LYMPH % 12.3 % (20.0-40.0); MEAN CELL VOLUME 91.9 fl (81.0-99.0); MEAN CORPUSCULAR HEMOGLOBIN 30.8 pg (27.0-31.0); MEAN CORPUSCULAR HGB CONC 33.6 g/dL (33.0-37.0); MEAN PLATELET VOLUME 9.1 fl (7.2-11.7); MONO # 0.5 K/uL (0.0-0.8); MONO % 6.2 % (0.0-10.0); NEUT # 6.1 K/uL (1.8-7.0); NEUT % 70.5 % (50.0-75.0); NRBC % 0.1 % (0.0-0.0); RED CELL DISTRIBUTION WIDTH 14.2 % (11.5-14.5); WHITE BLOOD COUNT 8.7 K/uL (4.8-10.8)
[2017-07-05 14:00] LABS: ALB/GLOB RATIO 1.6 (1.0-2.1); ALKALINE PHOSPHATASE 82 U/L (38-126); ALT/SGPT 44 U/L (9-52); AST/SGOT 35 U/L (14-36); BILIRUBIN,TOTAL 0.5 mg/dl (0.2-1.3); BLOOD UREA NITROGEN 22 mg/dl (7-17); CALCIUM 9.7 mg/dL (8.4-10.2); CARBON DIOXIDE 28 mmol/L (22-30); CHLORIDE 104 mmol/L (98-107); GFR AFRICAN-AMERICAN 50; GLUCOSE,RANDOM 117 mg/dL (65-105); PHOSPHOROUS 3.3 mg/dl (2.5-4.5); POTASSIUM 4.3 MMOL/L (3.6-5.0); SODIUM 143 mmol/l (132-148); TOTAL PROTEIN 7.4 G/DL (6.3-8.2)
--- NOTE | 2017-07-05 14:07 | RAD ---
HISTORY: Sepsis Patient COMPARISON: 04/06/2017 FINDINGS: LUNGS: No active pulmonary disease. PLEURA: No significant pleural effusion identified, no pneumothorax apparent. CARDIOVASCULAR: Unchanged. OSSEOUS STRUCTURES: No significant abnormalities. VISUALIZED UPPER ABDOMEN: Normal. 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 IMPRESSION: No active disease.
[2017-07-05 14:08] LABS: PARTIAL THROMBOPLASTIN TIME 24.5 Seconds (25.6-37.1)
[2017-07-05 14:13] LABS: ABG ALLEN TEST YES; ARTERIAL BLOOD GAS PH 7.45 (7.35-7.45); ARTERIAL BLOOD GAS PO2 66 mm/Hg (80-100)
[2017-07-05 15:01] LABS: RBC URINE 1 /hpf (0-3); URINE BILIRUBIN NEGATIVE (NEGATIVE); URINE BLOOD NEGATIVE (NEGATIVE); URINE COLOR STRAW (YELLOW); URINE GLUCOSE (UA) NEG (Normal); URINE KETONE NEGATIVE (NEGATIVE); URINE LEUKOCYTE ESTERASE NEG Leu/uL (Negative); URINE PROTEIN 30 mg/dL (NEGATIVE); URINE UROBILINOGEN 0.2-1.0 mg/dL (0.2-1.0); WBC URINE < 1 /hpf (0-5)
[2017-07-05] MEDS ORDERED: Magnesium Sulfate 2 gm/50 ml 2 GM/50 ML BAG IVPB ONE (15:11)
[2017-07-05] MEDS ORDERED: Magnesium Sulfate 2 gm/50 ml 2 GM/50 ML BAG ONE (16:48)
[2017-07-05] MEDS: Insulin Regular 100 units/ml SC SCH (23:37)
[2017-07-06] MEDS ORDERED: methylPREDNISolone 40 MG in Sodium Chloride 0.9% 50 ML IVPB SCH (01:00)
[2017-07-06 05:30] LABS: HEMATOCRIT 35.9 % (34.0-47.0); MEAN CORPUSCULAR HEMOGLOBIN 30.3 pg (27.0-31.0); MEAN CORPUSCULAR HGB CONC 32.6 g/dL (33.0-37.0); RED CELL DISTRIBUTION WIDTH 14.1 % (11.5-14.5); WHITE BLOOD COUNT 12.2 K/uL (4.8-10.8)
[2017-07-06] MEDS ORDERED: Influenza Vaccine 18yr & older 0.5 ML/45 MCG SYR IM ONE (06:30)
[2017-07-06 07:09] LABS: ALB/GLOB RATIO 1.6 (1.0-2.1); ALKALINE PHOSPHATASE 76 U/L (38-126); ALT/SGPT 39 U/L (9-52); AST/SGOT 34 U/L (14-36); BILIRUBIN,TOTAL 0.4 mg/dl (0.2-1.3); BLOOD UREA NITROGEN 22 mg/dl (7-17); CALCIUM 9.8 mg/dL (8.4-10.2); CARBON DIOXIDE 23 mmol/L (22-30); CHLORIDE 107 mmol/L (98-107); GFR AFRICAN-AMERICAN > 60; GLUCOSE,RANDOM 159 mg/dL (65-105); POTASSIUM 4.2 MMOL/L (3.6-5.0); SODIUM 141 mmol/l (132-148); TOTAL PROTEIN 6.7 G/DL (6.3-8.2)
[2017-07-06] MEDS: Insulin Regular 100 units/ml SC SCH ×4 (08:33→22:17)
[2017-07-06] MEDS ORDERED: MethylPREDNISolone 40 mg Vial IVP SCH (09:00)
[2017-07-06] MEDS: Patient's Own Med (Linagliptin/Metformin Hcl [Jentadueto 2.5 Mg-1000 Mg Tab] 1 TAB) PO SCH (09:01)
[2017-07-06] MEDS: Fluticasone-Salmeterol 250-50mcg Diskus IH SCH ×2 (09:02→21:18)
[2017-07-06] MEDS: Albuterol HFA 90 mcg/actuation (8 g) IH PRN ×2 (09:02→13:55)
[2017-07-06] MEDS: Promethazine DM 6.25 mg-15 mg/5 ml Syrup PO PRN (09:03)
[2017-07-06] MEDS: Enoxaparin 40 mg Syringe SC SCH (09:04)
[2017-07-06] MEDS: Patient's Own Med (Olmesartan/Hydrochlorothiazide [Benicar Hct 40-12.5 Mg Tablet] 1 TAB) PO SCH (09:04)
[2017-07-06] MEDS: BEPOTASTINE BESILATE BOTHEYES SCH (09:05)
[2017-07-06 10:29] LABS: THYROID STIMULATING HORMONE 0.37 mIU/ML (0.46-4.68)
--- NOTE | 2017-07-06 10:45 | CARD ---
APPROVED REPORT EKG Measurement Heart [id number] <Conclusion> Sinus tachycardia Otherwise normal ECG
[2017-07-06] MEDS: Albuterol-Ipratrop 3 mg / 0.5 (3 ml) UD INH PRN (14:35)
[2017-07-06] MEDS: MethylPREDNISolone 40 mg Vial IVP SCH (21:20)
[2017-07-07 05:42] LABS: HEMATOCRIT 34.7 % (34.0-47.0); MEAN CELL VOLUME 93.2 fl (81.0-99.0); MEAN CORPUSCULAR HEMOGLOBIN 30.3 pg (27.0-31.0); MEAN CORPUSCULAR HGB CONC 32.6 g/dL (33.0-37.0); RED CELL DISTRIBUTION WIDTH 14.4 % (11.5-14.5); WHITE BLOOD COUNT 18.9 K/uL (4.8-10.8)
[2017-07-07 06:22] LABS: CALCIUM 9.7 mg/dL (8.4-10.2); POTASSIUM 4.9 MMOL/L (3.6-5.0)
[2017-07-07] MEDS: Insulin Regular 100 units/ml SC SCH ×4 (06:33→23:04)
[2017-07-07] MEDS: Fluticasone-Salmeterol 250-50mcg Diskus IH SCH ×2 (10:19→20:01)
[2017-07-07] MEDS: BEPOTASTINE BESILATE BOTHEYES SCH (10:20)
[2017-07-07] MEDS: Patient's Own Med (Olmesartan/Hydrochlorothiazide [Benicar Hct 40-12.5 Mg Tablet] 1 TAB) PO SCH (10:21)
[2017-07-07] MEDS: Enoxaparin 40 mg Syringe SC SCH (10:23)
[2017-07-07] MEDS: Patient's Own Med (Linagliptin/Metformin Hcl [Jentadueto 2.5 Mg-1000 Mg Tab] 1 TAB) PO SCH (10:23)
[2017-07-07] MEDS: MethylPREDNISolone 40 mg Vial IVP SCH ×2 (10:29→20:02)
--- NOTE | 2017-07-07 10:44 | CP.PCM.HP ---
History of Present Illness - History of Present Illness History of Present Illness: 61 YO F w/ PMH of HTN, DM, HLD, COPD, and asthma was admitted for SOB x 3 days. Patient tried taking albuterol at home but did not provide any relief. Denies any fever/chills, headaches, dizziness, lightheadness, CP/Palpitatons/LUTHER , orthopnea, N/V/D/C, urinary symptoms. PMH:Anxiety, asthma, COPD, HTN PSH: cateract FH: denies Present on Admission - Present on Admission Any Indicators Present on Admission: No Past Patient History - Infectious Disease Hx of Infectious Diseases: None - Past Medical History & Family History Past Medical History?: Yes - Past Social History Smoking Status: Former Smoker - CARDIAC Hx Cardiac Disorders: Yes Hx Hypercholesterolemia: Yes - PULMONARY Hx Respiratory Disorders: Yes Hx Asthma: Yes Hx Chronic Obstructive Pulmonary Disease (COPD): Yes - NEUROLOGICAL Hx Neurological Disorder: No - HEENT Hx HEENT Problems: Yes - RENAL Hx Chronic Kidney Disease: No - ENDOCRINE/METABOLIC Hx Endocrine Disorders: Yes Hx Diabetes Mellitus Type 2: Yes - HEMATOLOGICAL/ONCOLOGICAL Hx Blood Disorders: No - INTEGUMENTARY Hx Dermatological Problems: No - MUSCULOSKELETAL/RHEUMATOLOGICAL Hx Musculoskeletal Disorders: Yes Hx Arthritis: Yes Hx Falls: No - GASTROINTESTINAL Hx Gastrointestinal Disorders: No - GENITOURINARY/GYNECOLOGICAL Hx Genitourinary Disorders: No - PSYCHIATRIC Hx Psychophysiologic Disorder: Yes Hx Anxiety: Yes Hx Bipolar Disorder: Yes Hx Substance Use: No - SURGICAL HISTORY Hx Surgeries: Yes Hx Cataract Extraction: Yes (BILATERAL) Other/Comment: CYSTO WITH STENTS X2 - ANESTHESIA Hx Anesthesia: Yes Hx Anesthesia Reactions: No Hx Malignant Hyperthermia: No Meds Allergies/Adverse Reactions: Allergies Allergy/AdvReac Type Severity Reaction Status Date / Time POLLEN Allergy Intermediate ITCHING Uncoded 07/05/17 13:25 Physical Exam - Constitutional Appears: No Acute Distress - Head Exam Head Exam: NORMAL INSPECTION - Respiratory Exam Respiratory Exam: Wheezes - Cardiovascular Exam Cardiovascular Exam: REGULAR RHYTHM, +S1, +S2 - GI/Abdominal Exam GI & Abdominal Exam: Normal Bowel Sounds, Soft. absent: Tenderness - Neurological Exam Neurological exam: Alert, CN II-XII Intact, Oriented x3 Results - Vital Signs Recent Vital Signs: Last Vital Signs Temp 97.6 F 07/07/17 08:00 Pulse 88 07/07/17 10:23 Resp 18 07/07/17 08:00 BP 132/74 07/07/17 10:23 Pulse Ox 98 07/07/17 08:00 - Labs Result Diagrams: 07/07/17 04:20 07/07/17 04:20 Labs: Laboratory Results - last 24 hr 07/06/17 07/06/17 07/06/17 11:47 16:51 21:23 WBC RBC Hgb Hct MCV MCH MCHC RDW Plt Count Sodium Potassium Chloride Carbon Dioxide Anion Gap BUN Creatinine Est GFR ( Amer) Est GFR (Non-Af Amer) POC Glucose (mg/dL) 165 H 232 H 152 H Random Glucose Calcium 07/07/17 07/07/17 07/07/17 04:20 04:20 05:07 WBC 18.9 H D RBC 3.72 L Hgb 11.3 L Hct 34.7 MCV 93.2 MCH 30.3 MCHC 32.6 L RDW 14.4 Plt Count 210 Sodium 142 Potassium 4.9 Chloride 104 Carbon Dioxide 29 Anion Gap 14 BUN 35 H Creatinine 1.3 H Est GFR ( Amer) 50 Est GFR (Non-Af Amer) 41 POC Glucose (mg/dL) 150 H Random Glucose 166 H Calcium 9.7 Assessment & Plan (1) Asthma exacerbation Status: Acute Priority: Medium (2) Hypertension Status: Chronic Priority: Low Comment: continue with home meds (3) DVT prophylaxis Status: Acute Comment: lovenox 40 SC
[2017-07-07] MEDS: Promethazine DM 6.25 mg-15 mg/5 ml Syrup PO PRN (20:00)
[2017-07-07 20:38] VITALS: TEMP 97.6
[2017-07-08] MEDS: Insulin Regular 100 units/ml SC SCH (06:54)
[2017-07-08 08:01] VITALS: BP 132/78; PULSE 96; RESP 18; O2SAT 99
[2017-07-08] MEDS: Fluticasone-Salmeterol 250-50mcg Diskus IH SCH (08:28)
[2017-07-08] MEDS: Patient's Own Med (Olmesartan/Hydrochlorothiazide [Benicar Hct 40-12.5 Mg Tablet] 1 TAB) PO SCH (08:28)
[2017-07-08] MEDS: MethylPREDNISolone 40 mg Vial IVP SCH (08:28)
[2017-07-08] MEDS: Patient's Own Med (Linagliptin/Metformin Hcl [Jentadueto 2.5 Mg-1000 Mg Tab] 1 TAB) PO SCH (08:28)
[2017-07-08] MEDS: BEPOTASTINE BESILATE BOTHEYES SCH (08:29)
[2017-07-08] MEDS: Enoxaparin 40 mg Syringe SC SCH (08:29)
[2017-07-08] MEDS: Promethazine DM 6.25 mg-15 mg/5 ml Syrup PO PRN (08:30)
[2017-07-08] MEDS: Albuterol-Ipratrop 3 mg / 0.5 (3 ml) UD INH PRN (08:49)
--- NOTE | 2017-07-08 11:13 | CP.PCM.DIS ---
Provider - Provider Date of Admission: 07/06/17 09:41 Attending physician: Hermelindo Andrew MD Time Spent in preparation of Discharge (in minutes): 30 Diagnosis - Discharge Diagnosis (1) Asthma exacerbation Status: Acute Priority: Medium (2) Hypertension Status: Chronic Priority: Low (3) DVT prophylaxis Status: Acute Hospital Course - Lab Results Lab Results: Micro Results 07/05/17 13:50 Blood Blood Culture - Preliminary NO GROWTH AFTER 48 HOURS 07/05/17 13:35 Blood Blood Culture - Preliminary NO GROWTH AFTER 48 HOURS Most Recent Lab Values WBC 18.9 K/uL (4.8-10.8) H D 07/07/17 04:20 RBC 3.72 Mil/uL (3.80-5.20) L 07/07/17 04:20 Hgb 11.3 g/dL (12.0-16.0) L 07/07/17 04:20 Hct 34.7 % (34.0-47.0) 07/07/17 04:20 MCV 93.2 fl (81.0-99.0) 07/07/17 04:20 MCH 30.3 pg (27.0-31.0) 07/07/17 04:20 MCHC 32.6 g/dL (33.0-37.0) L 07/07/17 04:20 RDW 14.4 % (11.5-14.5) 07/07/17 04:20 Plt Count 210 K/uL (130-400) 07/07/17 04:20 MPV 9.1 fl (7.2-11.7) 07/05/17 13:35 Neut % (Auto) 70.5 % (50.0-75.0) 07/05/17 13:35 Lymph % (Auto) 12.3 % (20.0-40.0) L 07/05/17 13:35 [place] % (Auto) 6.2 % (0.0-10.0) 07/05/17 13:35 Eos % (Auto) 9.8 % (0.0-4.0) H 07/05/17 13:35 Baso % (Auto) 1.2 % (0.0-2.0) 07/05/17 13:35 Neut # 6.1 K/uL (1.8-7.0) 07/05/17 13:35 Lymph # 1.1 K/uL (1.0-4.3) 07/05/17 13:35 [place] # 0.5 K/uL (0.0-0.8) 07/05/17 13:35 Eos # 0.9 K/uL (0.0-0.7) H 07/05/17 13:35 Baso # 0.1 K/uL (0.0-0.2) 07/05/17 13:35 PT 10.4 Seconds (9.8-13.1) 07/05/17 13:35 INR 0.9 (0.9-1.2) 07/05/17 13:35 APTT 24.5 Seconds (25.6-37.1) L 07/05/17 13:35 pCO2 43 mm/Hg (35-45) 07/05/17 13:07 pO2 66 mm/Hg (80-100) L 07/05/17 13:07 HCO3 29.0 mmol/L (21-28) H 07/05/17 13:07 ABG pH 7.45 (7.35-7.45) 07/05/17 13:07 ABG Total CO2 31.2 mmol/L (22-28) H 07/05/17 13:07 ABG O2 Saturation 97.1 % (95-98) 07/05/17 13:07 ABG Base Excess 5.3 mmol/L (-2.0-3.0) H 07/05/17 13:07 Damien Test Yes 07/05/17 13:07 ABG Potassium 4.3 mmol/L (3.6-5.2) 07/05/17 13:07 A-a O2 Difference 30.0 mm/Hg 07/05/17 13:07 Sodium 140.0 mmol/L (132-148) 07/05/17 13:07 Chloride 112.0 mmol/L (98-107) H 07/05/17 13:07 Glucose 133 mg/dL (65-105) H 07/05/17 13:07 Lactate 1.4 mmol/L (0.7-2.1) 07/05/17 13:07 FiO2 21.0 % 07/05/17 13:07 Sodium 142 mmol/l (132-148) 07/07/17 04:20 Potassium 4.9 MMOL/L (3.6-5.0) 07/07/17 04:20 Chloride 104 mmol/L (98-107) 07/07/17 04:20 Carbon Dioxide 29 mmol/L (22-30) 07/07/17 04:20 Anion Gap 14 (10-20) 07/07/17 04:20 BUN 35 mg/dl (7-17) H 07/07/17 04:20 Creatinine 1.3 mg/dL (0.7-1.2) H 07/07/17 04:20 Est GFR ( Amer) 50 07/07/17 04:20 Est GFR (Non-Af Amer) 41 07/07/17 04:20 POC Glucose (mg/dL) 186 mg/dL (65-110) H 07/07/17 22:14 Random Glucose 166 mg/dL (65-105) H 07/07/17 04:20 Calcium 9.7 mg/dL (8.4-10.2) 07/07/17 04:20 Phosphorus 3.3 mg/dl (2.5-4.5) 07/05/17 13:35 Magnesium 2.0 MG/DL (1.6-2.3) 07/05/17 13:35 Total Bilirubin 0.4 mg/dl (0.2-1.3) 07/06/17 04:20 AST 34 U/L (14-36) 07/06/17 04:20 ALT 39 U/L (9-52) 07/06/17 04:20 Alkaline Phosphatase 76 U/L (38-126) 07/06/17 04:20 Troponin I < 0.0120 ng/mL (0.00-0.120) 07/05/17 13:35 NT-Pro-B Natriuret Pep 38.1 pg/ml (0-900) 07/05/17 13:35 Total Protein 6.7 G/DL (6.3-8.2) 07/06/17 04:20 Albumin 4.1 g/dL (3.5-5.0) 07/06/17 04:20 Globulin 2.5 gm/dL (2.2-3.9) 07/06/17 04:20 Albumin/Globulin Ratio 1.6 (1.0-2.1) 07/06/17 04:20 TSH 3rd Generation 0.37 mIU/ML (0.46-4.68) L 07/06/17 04:20 Arterial Blood Potassium 4.3 mmol/L (3.6-5.2) 07/05/17 13:07 Urine Color Straw (YELLOW) 07/05/17 14:36 Urine Clarity Clear (Clear) 07/05/17 14:36 Urine pH 8.0 (5.0-8.0) 07/05/17 14:36 Ur Specific [place] 1.012 (1.003-1.030) 07/05/17 14:36 Urine Protein 30 mg/dL (NEGATIVE) 07/05/17 14:36 Urine Glucose (UA) Neg mg/dL (Normal) 07/05/17 14:36 Urine Ketones Negative mg/dL (NEGATIVE) 07/05/17 14:36 Urine Blood Negative (NEGATIVE) 07/05/17 14:36 Urine Nitrate Negative (NEGATIVE) 07/05/17 14:36 Urine Bilirubin Negative (NEGATIVE) 07/05/17 14:36 Urine Urobilinogen 0.2-1.0 mg/dL (0.2-1.0) 07/05/17 14:36 Ur Leukocyte Esterase Neg Sumit/uL (Negative) 07/05/17 14:36 Urine RBC (Auto) 1 /hpf (0-3) 07/05/17 14:36 Urine Microscopic WBC < 1 /hpf (0-5) 07/05/17 14:36 - Hospital Course Hospital Course: 61 YO F was admitted for an asthma exacerbation. While in the hospital patient received nasalization and steroids. She is doing much better . Follow up with Dr. Andrew within 1 week of being discharged Discharge Exam - Head Exam Head Exam: NORMAL INSPECTION - Eye Exam Eye Exam: Normal appearance - ENT Exam ENT Exam: Mucous Membranes Moist - Respiratory Exam Respiratory Exam: NORMAL BREATHING PATTERN. absent: Rales, Rhonchi, Wheezes, Respiratory Distress - Cardiovascular Exam Cardiovascular Exam: REGULAR RHYTHM, +S1, +S2 - Neurological Exam Neurological exam: Alert, CN II-XII Intact, Oriented x3 Discharge Plan - Discharge Medications Prescriptions: Methylprednisolone [Medrol Dose Pack (21 tabs)] 4 mg PO DAILY #21 mg - Follow Up Plan Condition: FAIR Disposition: HOME/ ROUTINE Additional Instructions: pt. cleared for discharge to home today by cont. medrol dose pack pt. will f/u with pmd in 1 week Referrals: Hermelindo Andrew MD [Staff Provider] -
== END 2017-07-08 11:17 | disposition home or self-care (01) | DRG 203 ==
LOC: H.ER 12:44 → H.ERHOLD 15:10 → H.TEL 19:08 → OBSVTOIN 07-06 09:41
PROVIDERS: ADMIT Family Medicine; ATTEND Family Medicine
PROC: 3E0234Z Introduction of Serum, Toxoid and Vaccine into Muscle, Percutaneous Approach (ICD-10-PCS; principal; 2017-07-06)
DX: J45.901 Unspecified asthma with (acute) exacerbation (principal); E11.9 Type 2 diabetes mellitus without complications; I10 Essential (primary) hypertension; F32.9 Major depressive disorder, single episode, unspecified; J44.9 Chronic obstructive pulmonary disease, unspecified; Z23 Encounter for immunization; F41.9 Anxiety disorder, unspecified; E78.00 Pure hypercholesterolemia, unspecified; E78.5 Hyperlipidemia, unspecified; M17.0 Bilateral primary osteoarthritis of knee; M19.042 Primary osteoarthritis, left hand; M19.041 Primary osteoarthritis, right hand

== ENCOUNTER 2017-10-06 11:09 | Inpatient (IN) | payer MEDICARE ==
[2017-10-06 11:20] VITALS: BMI 29.9
[2017-10-06] MEDS ORDERED: Albuterol-Ipratrop 3 mg / 0.5 (3 ml) UD INH STA (12:22)
[2017-10-06] MEDS ORDERED: Albuterol 0.083% Inhal Sol (2.5 mg/3 mL) UD ONE (12:32)
[2017-10-06] MEDS ORDERED: Albuterol-Ipratrop 3 mg / 0.5 (3 ml) UD ONE (12:46)
[2017-10-06 12:49] LABS: BASO # 0.1 K/uL (0.0-0.2); BASO % 1.4 % (0.0-2.0); EOS # 1.1 K/uL (0.0-0.7); EOS % 10.3 % (0.0-4.0); HEMOGLOBIN 11.9 g/dL (12.0-16.0); LYMPH # 1.2 K/uL (1.0-4.3); LYMPH % 11.6 % (20.0-40.0); MEAN CELL VOLUME 91.1 fl (81.0-99.0); MEAN CORPUSCULAR HEMOGLOBIN 30.5 pg (27.0-31.0); MEAN CORPUSCULAR HGB CONC 33.5 g/dL (33.0-37.0); MONO # 0.8 K/uL (0.0-0.8); MONO % 7.3 % (0.0-10.0); NEUT # 7.2 K/uL (1.8-7.0); NEUT % 69.4 % (50.0-75.0); NRBC % 0.1 % (0.0-0.0); RBC 3.91 Mil/uL (3.80-5.20); WHITE BLOOD COUNT 10.3 K/uL (4.8-10.8)
[2017-10-06 13:01] LABS: ALB/GLOB RATIO 1.4 (1.0-2.1); ALBUMIN 4.2 g/dL (3.5-5.0)
--- NOTE | 2017-10-06 13:22 | ED PDOC ---
HPI: SOB/CHF/COPD Time Seen by Provider: 10/06/17 11:30 Chief Complaint (Nursing): Shortness Of Breath Chief Complaint (Provider): Shortness of Breath History Per: Patient History/Exam Limitations: no limitations Onset/Duration Of Symptoms: Days (x 2) Current Symptoms Are (Timing): Still Present Additional History Per: EMS Additional Complaint(s): Brittany is a 62 y/o female with a history of COPD, hypertension, diabetes, and chronic kidney disease who was brought to the ED via EMS for shortness of breath. Patient states the symptoms started 2 days ago and thinks it might be asthma exacerbation. She also complains of a dry cough but denies fever, nausea , or chest pain. PMD: Dr. Hermelindo Andrew Past Medical History Reviewed: Historical Data, Nursing Documentation, Vital Signs Vital Signs: Last Vital Signs Temp 98.2 F 10/06/17 16:16 Pulse 130 H 10/06/17 16:16 Resp 25 H 10/06/17 16:16 BP 160/87 H 10/06/17 16:16 Pulse Ox 94 L 10/06/17 16:16 - Medical History PMH: Anxiety, Arthritis, Asthma, Bipolar Disorder, COPD, Depression, Diabetes, HTN, Hypercholesterolemia, Kidney Stones (RIGHT), Peripheral Edema Denies: Atrial Fibrillation, HIV - Surgical History Other surgeries: Cataract surgery - Family History Family History: States: Unknown Family Hx - Social History Current smoker - smoking cessation education provided: No Ex-Smoker (has not smoked in the last 12 months): Yes Alcohol: None Drugs: Denies - Immunization History Hx Tetanus Toxoid Vaccination: No Hx Influenza Vaccination: Yes Hx Pneumococcal Vaccination: Yes - Home Medications Home Medications: Ambulatory Orders Medication Instructions Recorded Allopurinol 300 mg PO DAILY 11/04/15 Bepotastine Besilate [Bepreve] 1 drop BOTHEYES DAILY 11/04/15 Lisinopril [Zestril] 40 mg PO DAILY 11/04/15 Montelukast [Singulair] 10 mg PO HS 11/04/15 Rosuvastatin Calcium [Crestor] 20 mg PO HS 11/04/15 Albuterol HFA [Ventolin HFA 90 2 puff IH Q4H PRN 10/16/16 mcg/actuation (8 g)] Aspirin [Ecotrin] 81 mg PO DAILY 10/16/16 Doxazosin [Cardura] 2 mg PO HS 10/16/16 Linagliptin/Metformin HCl 1 tab PO DAILY 10/16/16 [Jentadueto 2.5 mg-1000 mg Tab] Budesonide/Formoterol Fumarate 1 puff IH Q12H 04/06/17 [Symbicort 160-4.5 Mcg Inhaler] Promethazine DM [Phenergan DM Oral 240 ml PO PRN PRN 07/05/17 Syrup] Albuterol 0.083% [Albuterol 0.083% 1 puff INH TID 10/06/17 Inhal Sugar (2.5 mg/3 ml) UD] Olmesartan/Hydrochlorothiazide 1 tab PO DAILY 10/06/17 [Benicar Hct 40-12.5 mg Tablet] - Allergies Allergies/Adverse Reactions: Allergies Allergy/AdvReac Type Severity Reaction Status Date / Time POLLEN Allergy Intermediate ITCHING Uncoded 07/05/17 13:25 Review of Systems ROS Statement: Except As Marked, All Systems Reviewed And Found Negative Constitutional: Negative for: Fever Cardiovascular: Negative for: Chest Pain Respiratory: Positive for: Cough (dry), Shortness of Breath Gastrointestinal: Negative for: Nausea Physical Exam - Reviewed Nursing Documentation Reviewed: Yes Vital Signs Reviewed: Yes - Physical Exam Appears: Positive for: Well, Non-toxic, No Acute Distress Skin: Positive for: Normal Color, Warm Cardiovascular/Chest: Positive for: Regular Rate, Rhythm. Negative for: Murmur Respiratory: Positive for: Wheezing Gastrointestinal/Abdominal: Positive for: Normal Exam, Bowel Sounds, Soft Neurologic/Psych: Positive for: Alert, Oriented - Laboratory Results Result Diagrams: 10/06/17 12:46 10/06/17 12:46 - ECG ECG Rhythm: Positive for: Sinus Tachycardia Rate: 130 (bpm) O2 Sat by Pulse Oximetry: 95 (RA) Pulse Ox Interpretation: Normal Medical Decision Making Medical Decision Making: Time: 12:22 Initial Impression: Rule out COPD exacerbation Initial Plan: --CMP --CBC --Albuterol Treatment --SOLU-Medrol Time: 13:18 --Flu Swab --Rectal Temp Time: 13:30 --Patient negative for flu Time: 14:53 --Kidney function is elevated, but is consistent with patient's history of chronic renal insufficiency Time: 1524 --Patient persistently tachycardic. despite being afebrile. --Spoke with Dr. Andrew who will admit patient. Clinical Impression: Asthma exacerbation; Tachycardia Scribe Attestation: Documented by Imtiaz Joe, acting as a scribe for Ahmet Doan MD. Provider Scribe Attestation: All medical record entries made by the Scribe were at my direction and personally dictated by me. I have reviewed the chart and agree that the record accurately reflects my personal performance of the history, physical exam, medical decision making, and the department course for this patient. I have also personally directed, reviewed, and agree with the discharge instructions and disposition. Disposition - Clinical Impression Clinical Impression: Asthma exacerbation, Tachycardia - Disposition Disposition Time: 13:00 Condition: STABLE
--- NOTE | 2017-10-06 16:08 | RAD ---
HISTORY: sob COMPARISON: Chest radiograph dated 07/05/2017. TECHNIQUE: Chest PA and lateral FINDINGS: LUNGS: Mild right basilar atelectasis. PLEURA: Stable elevation of the right hemidiaphragm. No significant pleural effusion identified. No pneumothorax apparent. CARDIOVASCULAR: Normal. OSSEOUS STRUCTURES: Unchanged. VISUALIZED UPPER ABDOMEN: Normal. OTHER FINDINGS: None. IMPRESSION: Mild right basilar atelectasis.
[2017-10-06] MEDS ORDERED: Albuterol HFA 90 mcg/actuation (8 g) IH PRN (18:15)
[2017-10-06] MEDS: Patient's Own Med (Budesonide/Formoterol Fumarate [Symbicort 160-4.5 Mcg Inhaler] 1 PUFF) IH SCH (18:48)
[2017-10-06] MEDS: Insulin Regular 100 units/ml SC SCH (22:35)
[2017-10-06] MEDS: Levalbuterol 0.63 MG/3 ML Inhal Soln UD INH SCH (23:55)
[2017-10-07 05:29] LABS: HEMOGLOBIN 12.7 g/dL (12.0-16.0); MEAN CELL VOLUME 92.1 fl (81.0-99.0); MEAN CORPUSCULAR HEMOGLOBIN 30.5 pg (27.0-31.0); MEAN CORPUSCULAR HGB CONC 33.1 g/dL (33.0-37.0); RBC 4.15 Mil/uL (3.80-5.20); RED CELL DISTRIBUTION WIDTH 14.1 % (11.5-14.5); WHITE BLOOD COUNT 12.7 K/uL (4.8-10.8)
[2017-10-07] MEDS: Patient's Own Med (Budesonide/Formoterol Fumarate [Symbicort 160-4.5 Mcg Inhaler] 1 PUFF) IH SCH ×2 (05:59→22:00)
[2017-10-07] MEDS: Promethazine DM 12.5 mg-30 mg/10 ml Syrup PO PRN ×2 (06:01→12:21)
[2017-10-07 06:26] LABS: ALB/GLOB RATIO 1.4 (1.0-2.1); ALBUMIN 4.2 g/dL (3.5-5.0); CALCIUM 10.2 mg/dL (8.4-10.2)
[2017-10-07] MEDS: Levalbuterol 0.63 MG/3 ML Inhal Soln UD INH SCH ×4 (07:32→20:14)
[2017-10-07] MEDS ORDERED: Patient's Own Med (Olmesartan/Hydrochlorothiazide [Benicar Hct 40-12.5 Mg Tablet] 1 TAB) PO SCH (09:00)
[2017-10-07] MEDS ORDERED: Albuterol 0.083% Inhal Sol (2.5 mg/3 mL) UD INH SCH ×2 (09:00)
[2017-10-07] MEDS: BEPOTASTINE BESILATE BOTHEYES SCH (09:08)
[2017-10-07] MEDS: Patient's Own Med (Linagliptin/Metformin Hcl [Jentadueto 2.5 Mg-1000 Mg Tab] 1 TAB) PO SCH (09:09)
[2017-10-07] MEDS: Insulin Regular 100 units/ml SC SCH ×4 (09:09→21:52)
[2017-10-07] MEDS: Enoxaparin 40 mg Syringe SC SCH (09:10)
[2017-10-07] MEDS: Azithromycin 500 MG in Sodium Chloride 0.9% 250 ML IVPB SCH (09:11)
[2017-10-07] MEDS ORDERED: Sodium Chloride 3% for Inhalation 4 ML VIAL.NEB IH PRN (11:15)
[2017-10-07] MEDS: Sodium Chloride 0.9% 1,000 ML IV SCH (12:14)
--- NOTE | 2017-10-07 13:41 | CP.PCM.HP ---
Addendum entered and electronically signed by Kati Bustillos MD 10/09/17 07 :33: Patient has mild persistent asthma. Original Note: <Kati Bustillos - Last Filed: 10/07/17 13:57> History of Present Illness - History of Present Illness History of Present Illness: 62 yo female presents in ED with complaint of SOB and dry cough X 2 days. PMH includes asthma, HTN, DM type 2, anxiety, bi-polar disorder, and depression. Denies chest pain, fever, chills, nausea, vomiting. PMD: Dr. Andrew PMHx: asthma, HTN, DM type 2, anxiety, bi-polar disorder, and depression. SurHx: cataract surgery FMHx: father at 57 from [place], DM; mother at 92 from Alzheimer and dementia complications; older brother at 43 s/p heart transplant complications-had heart failure secondary to smoking and drinking, older sister has type 2 DM, younger brother has IDDM type 1. SocHx: denies smoking, EToH, and drugs Medications: see medication reconciliation Allergies: NKDA Present on Admission - Present on Admission Any Indicators Present on Admission: No History of DVT/PE: No History of Uncontrolled Diabetes: No Urinary Catheter: No Decubitus Ulcer Present: No History Surgical Site Infection Following: None Review of Systems - Review of Systems All systems: reviewed and no additional remarkable complaints except (what is mentioned in HPI) - Constitutional Constitutional: absent: Headache - EENT Eyes: absent: Blurred Vision Ears: absent: Ear Pain Nose/Mouth/Throat: Nasal Congestion, Nasal Discharge - Cardiovascular Cardiovascular: absent: Chest Pain - Respiratory Respiratory: Dyspnea. absent: Hemoptysis - Gastrointestinal Gastrointestinal: absent: Abdominal Pain, Diarrhea - Genitourinary Genitourinary: absent: Dysuria - Musculoskeletal Musculoskeletal: absent: Arthralgias - Integumentary Integumentary: absent: Bleeding Lesions - Neurological Neurological: absent: Syncope, Weakness - Psychiatric Psychiatric: absent: Homicidal Ideation, Suicidal Ideation - Endocrine Endocrine: absent: Fatigue, Palpitations - Hematologic/Lymphatic Hematologic: absent: Easy Bleeding, Easy Bruising Past Patient History - Infectious Disease Hx of Infectious Diseases: None - Past Medical History & Family History Past Medical History?: Yes - Past Social History Smoking Status: Never Smoked - CARDIAC Hx Atrial Fibrillation: No Hx Hypercholesterolemia: Yes Hx Hypertension: Yes Hx Peripheral Edema: Yes - PULMONARY Hx Asthma: Yes Hx Chronic Obstructive Pulmonary Disease (COPD): Yes - NEUROLOGICAL Hx Neurological Disorder: No - HEENT Hx HEENT Problems: No Hx Cataracts: Yes (sx) - RENAL Hx Kidney Stones: Yes (RIGHT) - ENDOCRINE/METABOLIC Hx Endocrine Disorders: Yes Hx Diabetes Mellitus Type 2: Yes - HEMATOLOGICAL/ONCOLOGICAL Hx Human Immunodeficiency Virus (HIV): No - INTEGUMENTARY Hx Dermatological Problems: No - MUSCULOSKELETAL/RHEUMATOLOGICAL Hx Arthritis: Yes Hx Falls: No - GASTROINTESTINAL Hx Gastrointestinal Disorders: No - GENITOURINARY/GYNECOLOGICAL Hx Genitourinary Disorders: No - PSYCHIATRIC Hx Anxiety: Yes Hx Bipolar Disorder: Yes Hx Depression: Yes Hx Substance Use: No - SURGICAL HISTORY Hx Surgeries: Yes Hx Cataract Extraction: Yes (BILATERAL) Other/Comment: CYSTO WITH STENTS X2 - ANESTHESIA Hx Anesthesia: Yes Hx Anesthesia Reactions: No Hx Malignant Hyperthermia: No Has any member of the family had a problem w/ anesthesia?: No Meds Allergies/Adverse Reactions: Allergies Allergy/AdvReac Type Severity Reaction Status Date / Time POLLEN Allergy Intermediate ITCHING Uncoded 07/05/17 13:25 Physical Exam - Constitutional Appears: No Acute Distress Additional comments: obese - Head Exam Head Exam: ATRAUMATIC, NORMOCEPHALIC - Eye Exam Eye Exam: EOMI - ENT Exam ENT Exam: Mucous Membranes Moist - Respiratory Exam Respiratory Exam: Rhonchi, Wheezes (expiratory). absent: Rales Additional comments: diffuse - Cardiovascular Exam Cardiovascular Exam: REGULAR RHYTHM, +S1, +S2 - GI/Abdominal Exam GI & Abdominal Exam: Normal Bowel Sounds - Extremities Exam Extremities exam: Positive for: full ROM. Negative for: pedal edema - Neurological Exam Neurological exam: Alert, CN II-XII Intact, Oriented x3 - Psychiatric Exam Psychiatric exam: Normal Affect, Normal Mood - Skin Skin Exam: Dry, Warm Results - Vital Signs Recent Vital Signs: Last Vital Signs Temp 97.8 F 10/07/17 12:38 Pulse 123 H 10/07/17 12:38 Resp 18 10/07/17 12:38 BP 98/59 L 10/07/17 12:38 Pulse Ox 94 L 10/07/17 12:38 - Labs Result Diagrams: 10/07/17 04:40 10/07/17 04:40 Labs: Laboratory Results - last 24 hr 10/06/17 10/06/17 10/06/17 13:30 17:47 21:13 WBC RBC Hgb Hct MCV MCH MCHC RDW Plt Count Sodium Potassium Chloride Carbon Dioxide Anion Gap BUN Creatinine Est GFR ( Amer) Est GFR (Non-Af Amer) POC Glucose (mg/dL) 211 H 207 H Random Glucose Calcium Total Bilirubin AST ALT Alkaline Phosphatase Total Protein Albumin Globulin Albumin/Globulin Ratio Influenza Typ A,B (EIA) Negative for flu a/b 10/07/17 10/07/17 10/07/17 04:40 04:40 05:39 WBC 12.7 H RBC 4.15 Hgb 12.7 Hct 38.2 MCV 92.1 MCH 30.5 MCHC 33.1 RDW 14.1 Plt Count 196 Sodium 142 Potassium 4.2 Chloride 103 Carbon Dioxide 28 Anion Gap 15 BUN 23 H Creatinine 1.2 Est GFR ( Amer) 55 Est GFR (Non-Af Amer) 45 POC Glucose (mg/dL) 169 H Random Glucose 190 H Calcium 10.2 Total Bilirubin 0.7 AST 31 ALT 44 Alkaline Phosphatase 81 Total Protein 7.4 Albumin 4.2 Globulin 3.1 Albumin/Globulin Ratio 1.4 Influenza Typ A,B (EIA) 10/07/17 11:07 WBC RBC Hgb Hct MCV MCH MCHC RDW Plt Count Sodium Potassium Chloride Carbon Dioxide Anion Gap BUN Creatinine Est GFR ( Amer) Est GFR (Non-Af Amer) POC Glucose (mg/dL) 234 H Random Glucose Calcium Total Bilirubin AST ALT Alkaline Phosphatase Total Protein Albumin Globulin Albumin/Globulin Ratio Influenza Typ A,B (EIA) Assessment & Plan - Assessment and Plan (Free Text) Assessment: 62 yo female admitted for asthma exacerbation/COPD exacerbation, has history of mild persistent asthma. -admit to [facility] -IV steroids -supplemental O2 via nasal cannula to keep SpO2 >92 % -azithromycin 500 mg IV daily -monitor O2 sat - Date & Time Date: 10/07/17 Time: 10:10 <Hermelindo Andrew - Last Filed: 10/09/17 10:13> Results - Vital Signs Recent Vital Signs: Last Vital Signs Temp 97.3 F L 10/09/17 08:17 Pulse 86 10/09/17 09:35 Resp 18 10/09/17 08:17 BP 136/89 10/09/17 09:35 Pulse Ox 95 10/09/17 08:17 - Labs Result Diagrams: 10/09/17 04:54 10/08/17 05:50 Labs: Laboratory Results - last 24 hr 10/08/17 10/08/17 10/08/17 11:00 15:51 22:30 WBC RBC Hgb Hct MCV MCH MCHC RDW Plt Count POC Glucose (mg/dL) 327 H 111 H 172 H 10/09/17 10/09/17 04:54 05:53 WBC 18.2 H RBC 3.65 L Hgb 11.1 L Hct 33.7 L MCV 92.4 MCH 30.4 MCHC 32.9 L RDW 14.0 Plt Count 184 POC Glucose (mg/dL) 115 H Assessment & Plan - Assessment and Plan (Free Text) Plan: I was present during evaluation and discussed with Dr Hernandez re plans of care and mgt. Hermelindo Andrew M.D.
--- NOTE | 2017-10-07 16:36 | CARD ---
APPROVED REPORT EKG Measurement Heart [id number] <Conclusion> Sinus tachycardia Otherwise normal ECG
[2017-10-08] MEDS: Sodium Chloride 0.9% 1,000 ML IV SCH (01:00)
[2017-10-08 06:27] LABS: HEMOGLOBIN 11.8 g/dL (12.0-16.0); MEAN CELL VOLUME 91.8 fl (81.0-99.0); MEAN CORPUSCULAR HEMOGLOBIN 29.9 pg (27.0-31.0); MEAN CORPUSCULAR HGB CONC 32.5 g/dL (33.0-37.0); RBC 3.95 Mil/uL (3.80-5.20); RED CELL DISTRIBUTION WIDTH 14.1 % (11.5-14.5); WHITE BLOOD COUNT 18.7 K/uL (4.8-10.8)
[2017-10-08 06:29] LABS: CALCIUM 9.6 mg/dL (8.4-10.2)
[2017-10-08] MEDS: Patient's Own Med (Budesonide/Formoterol Fumarate [Symbicort 160-4.5 Mcg Inhaler] 1 PUFF) IH SCH ×2 (06:59→17:03)
[2017-10-08] MEDS: Insulin Regular 100 units/ml SC SCH ×4 (07:01→23:10)
[2017-10-08] MEDS: Levalbuterol 0.63 MG/3 ML Inhal Soln UD INH SCH ×4 (07:49→19:45)
[2017-10-08] MEDS ORDERED: MethylPREDNISolone 40 mg Vial IVP SCH (08:47)
[2017-10-08] MEDS: BEPOTASTINE BESILATE BOTHEYES SCH (09:17)
[2017-10-08] MEDS: Azithromycin 500 MG in Sodium Chloride 0.9% 250 ML IVPB SCH (09:17)
[2017-10-08] MEDS: Enoxaparin 40 mg Syringe SC SCH (09:19)
[2017-10-08] MEDS: Patient's Own Med (Linagliptin/Metformin Hcl [Jentadueto 2.5 Mg-1000 Mg Tab] 1 TAB) PO SCH (09:19)
[2017-10-08] MEDS: Promethazine DM 12.5 mg-30 mg/10 ml Syrup PO PRN (09:20)
--- NOTE | 2017-10-08 11:03 | PQF GENQUE ---
Dr. Andrew, Medication - Correlation for current Diagnosis(es): Active meds for this encounter also include : -Norvasc 10 mg PO Daily, Lipitor, Hydrochlorathiazide 12.5 mg Daily, Insulin/, Metformin,Accuchecks, Bepotastine one gtt. both eyes, Cardura, and Cozaar (please note there are some ICD-10 codes that are for a personal history of a condition and other codes that are for current conditions currently being treated, monitored etc.) H and P: ISigned note: PMHx: asthma, HTN, DM type 2, anxiety, bi-polar disorder, and depression. SurHx: cataract surgery Assessment: 62 yo female admitted for asthma exacerbation/COPD exacerbation, has history of mild persistent asthma. This form is a permanent part of the medical record Clarification of your documentation is requested to better reflect the severity of illness and intensity of treatment of your patient. Indicators present [] Specify: [] [] Specify: [] [] Specify: [] [] Specify: [] Location in the medical record that reflects the above clinical findings: [] Treatment Provided: [] PHYSICIAN'S RESPONSE Based on your medical judgment of the clinical indicators outlined above please clarify the following: [] Practitioner response [] If unable to determine, please check the box, sign and date. Present On Admission (POA) Indicator: [] Present at the time of admission [] Not present at the time of admission [] Clinically Undetermined In responding to this query, please exercise your independent professional judgment. The fact that a question is asked does not imply that any particular answer is desired or expected. Thank you for your clarification on this documentation. If you have any questions please call. * Thank you, Osiris Phoenix RN ext. #[phone] MTDD
[2017-10-08] MEDS: Pantoprazole 40 mg EC Tab PO SCH (11:52)
--- NOTE | 2017-10-08 14:12 | CP.PCM.PN ---
Addendum entered and electronically signed by Kati Bustillos MD 10/09/17 07 :44: Patient has HTN, DM type 2 and cataract. She is being treated accordingly with continuation of her home medications in addition to insulin coverage scale during this admission for better control of her blood glucose levels. Original Note: <Kati Bustillos - Last Filed: 10/08/17 14:10> Subjective - Date & Time of Evaluation Date of Evaluation: 10/08/17 Time of Evaluation: 10:50 - Subjective Subjective: Patient seen and examined at bedside with attending- Dr. Andrew. Patient reports SOB persists but she feels comfortable on oxygen. Denies chest pain, weakness, dizziness. Objective - Vital Signs/Intake and Output Vital Signs (last 24 hours): Temp Pulse Resp BP Pulse Ox 97.9 F 123 H 18 110/63 94 L 10/08/17 12:24 10/08/17 12:24 10/08/17 12:24 10/08/17 12:24 10/08/17 12:24 - Medications Medications: Current Medications Albuterol (Ventolin Hfa 90 Mcg/Actuation (8 G)) 2 puff IH Q4H PRN PRN Reason: Shortness of Breath Allopurinol (Zyloprim) 300 mg PO DAILY [facility] Last Admin: 10/08/17 09:18 Dose: 300 mg Amlodipine Besylate (Norvasc) 10 mg PO DAILY [facility] Last Admin: 10/08/17 09:20 Dose: 10 mg Aspirin (Ecotrin) 81 mg PO DAILY [facility] Last Admin: 10/08/17 09:18 Dose: 81 mg Atorvastatin Calcium (Lipitor) 40 mg PO HS [facility] Last Admin: 10/07/17 21:53 Dose: 40 mg Doxazosin Mesylate (Cardura) 2 mg PO HS [facility] Last Admin: 10/07/17 21:52 Dose: 2 mg Enoxaparin Sodium (Lovenox) 40 mg SC DAILY [facility] PRN Reason: Protocol Last Admin: 10/08/17 09:19 Dose: 40 mg Home Med (Bepotastine Besilate [Bepreve]) 1 drop BOTHEYES DAILY [facility] Last Admin: 10/08/17 09:17 Dose: 1 drop Home Med (Budesonide/Formoterol Fumarate [Symbicort 160-4.5 Mcg Inhaler]) 1 puff IH Q12H [facility] Last Admin: 10/08/17 06:59 Dose: 1 puff Home Med (Linagliptin/Metformin Hcl [Jentadueto 2.5 Mg-1000 Mg Tab]) 1 tab PO DAILY [facility] Last Admin: 10/08/17 09:19 Dose: 1 tab Hydrochlorothiazide (Microzide) 12.5 mg PO DAILY [facility] Last Admin: 10/08/17 09:18 Dose: 12.5 mg Azithromycin 500 mg/ Sodium (Chloride) 250 mls @ 250 mls/hr IVPB DAILY [facility] PRN Reason: Protocol Last Admin: 10/08/17 09:17 Dose: 250 mls/hr Insulin Human Regular (Humulin R) 0 units SC ACHS [facility] PRN Reason: Protocol Last Admin: 10/08/17 11:51 Dose: 8 unit Levalbuterol HCl (Xopenex) 0.63 mg INH QID [facility] Last Admin: 10/08/17 11:47 Dose: 0.63 mg Lisinopril (Zestril) 40 mg PO DAILY [facility] Last Admin: 10/08/17 09:22 Dose: 40 mg Losartan Potassium (Cozaar) 100 mg PO DAILY [facility] Last Admin: 10/08/17 09:18 Dose: 100 mg Montelukast Sodium (Singulair) 10 mg PO HS [facility] Last Admin: 10/07/17 21:53 Dose: 10 mg Pantoprazole Sodium (Protonix Ec Tab) 40 mg PO DAILY [facility] Last Admin: 10/08/17 11:52 Dose: 40 mg Prednisone (Prednisone Tab) 20 mg PO DAILY [facility] Promethazine HCl/Dextromethorphan (Phenergan Dm Syrup) 10 ml PO QID PRN PRN Reason: Cough Last Admin: 10/08/17 09:20 Dose: 10 ml - Labs Labs: 10/08/17 05:50 10/08/17 05:50 - Constitutional Appears: No Acute Distress - Head Exam Head Exam: ATRAUMATIC, NORMOCEPHALIC - Eye Exam Eye Exam: EOMI - ENT Exam ENT Exam: Mucous Membranes Moist - Neck Exam Neck Exam: Full ROM - Respiratory Exam Respiratory Exam: Rhonchi (mild diffuse), Wheezes (expiratory), NORMAL BREATHING PATTERN (on 2L supplemental O2 via nasal cannula) - Cardiovascular Exam Cardiovascular Exam: REGULAR RHYTHM, +S1, +S2 - GI/Abdominal Exam GI & Abdominal Exam: Soft (obese), Normal Bowel Sounds. absent: Tenderness - Extremities Exam Extremities Exam: Full ROM. absent: Calf Tenderness, Pedal Edema - Neurological Exam Neurological Exam: Alert, Awake, CN II-XII Intact, Oriented x3 - Psychiatric Exam Psychiatric exam: Normal Affect, Normal Mood - Skin Skin Exam: Dry, Warm Assessment and Plan - Assessment and Plan (Free Text) Assessment: 62 yo female admitted for asthma exacerbation/COPD exacerbation, has history of mild persistent asthma. -continue to monitor on tele -Xopenex QID -taper steroids to PO -supplemental O2 via nasal cannula to keep SpO2 >92 % -azithromycin 500 mg IV daily -monitor O2 sat <Hermelindo Andrew L - Last Filed: 10/09/17 10:15> Objective - Vital Signs/Intake and Output Vital Signs (last 24 hours): Temp Pulse Resp BP Pulse Ox 97.3 F L 86 18 136/89 95 10/09/17 08:17 10/09/17 09:35 10/09/17 08:17 10/09/17 09:35 10/09/17 08:17 - Medications Medications: Current Medications Albuterol (Ventolin Hfa 90 Mcg/Actuation (8 G)) 2 puff IH Q4H PRN PRN Reason: Shortness of Breath Last Admin: 10/09/17 09:28 Dose: 2 puff Allopurinol (Zyloprim) 300 mg PO DAILY [facility] Last Admin: 10/09/17 09:33 Dose: 300 mg Amlodipine Besylate (Norvasc) 10 mg PO DAILY [facility] Last Admin: 10/09/17 09:30 Dose: 10 mg Aspirin (Ecotrin) 81 mg PO DAILY [facility] Last Admin: 10/09/17 09:31 Dose: 81 mg Atorvastatin Calcium (Lipitor) 40 mg PO HS [facility] Last Admin: 10/08/17 21:04 Dose: 40 mg Doxazosin Mesylate (Cardura) 2 mg PO HS [facility] Last Admin: 10/08/17 21:04 Dose: 2 mg Enoxaparin Sodium (Lovenox) 40 mg SC DAILY [facility] PRN Reason: Protocol Last Admin: 10/09/17 09:29 Dose: 40 mg Home Med (Bepotastine Besilate [Bepreve]) 1 drop BOTHEYES DAILY [facility] Last Admin: 10/09/17 09:32 Dose: 1 drop Home Med (Budesonide/Formoterol Fumarate [Symbicort 160-4.5 Mcg Inhaler]) 1 puff IH Q12H [facility] Last Admin: 10/09/17 05:31 Dose: 1 puff Home Med (Linagliptin/Metformin Hcl [Jentadueto 2.5 Mg-1000 Mg Tab]) 1 tab PO DAILY [facility] Last Admin: 10/09/17 09:32 Dose: 1 tab Hydrochlorothiazide (Microzide) 12.5 mg PO DAILY [facility] Last Admin: 10/09/17 09:31 Dose: 12.5 mg Azithromycin 500 mg/ Sodium (Chloride) 250 mls @ 250 mls/hr IVPB DAILY [facility] PRN Reason: Protocol Last Admin: 10/09/17 09:29 Dose: 250 mls/hr Insulin Human Regular (Humulin R) 0 units SC ACHS [facility] PRN Reason: Protocol Last Admin: 10/09/17 08:40 Dose: Not Given Levalbuterol HCl (Xopenex) 0.63 mg INH QID [facility] Last Admin: 10/09/17 08:02 Dose: 0.63 mg Lisinopril (Zestril) 40 mg PO DAILY [facility] Last Admin: 10/09/17 09:35 Dose: 40 mg Losartan Potassium (Cozaar) 100 mg PO DAILY [facility] Last Admin: 10/09/17 09:34 Dose: 100 mg Montelukast Sodium (Singulair) 10 mg PO HS [facility] Last Admin: 10/08/17 21:04 Dose: 10 mg Pantoprazole Sodium (Protonix Ec Tab) 40 mg PO DAILY [facility] Last Admin: 10/09/17 09:32 Dose: 40 mg Prednisone (Prednisone Tab) 20 mg PO DAILY [facility] Last Admin: 10/09/17 09:30 Dose: 20 mg Promethazine HCl/Dextromethorphan (Phenergan Dm Syrup) 10 ml PO QID PRN PRN Reason: Cough Last Admin: 10/09/17 09:30 Dose: 10 ml - Labs Labs: 10/09/17 04:54 10/08/17 05:50 Assessment and Plan - Assessment and Plan (Free Text) Plan: I was present during evaluation and discussed with Dr Bustillos re plans of care and tx hermleindo Andrew M.D.
[2017-10-09 00:35] VITALS: RESP 18
[2017-10-09] MEDS: Patient's Own Med (Budesonide/Formoterol Fumarate [Symbicort 160-4.5 Mcg Inhaler] 1 PUFF) IH SCH (05:31)
[2017-10-09 06:31] LABS: HEMOGLOBIN 11.1 g/dL (12.0-16.0); MEAN CELL VOLUME 92.4 fl (81.0-99.0); MEAN CORPUSCULAR HEMOGLOBIN 30.4 pg (27.0-31.0); MEAN CORPUSCULAR HGB CONC 32.9 g/dL (33.0-37.0); RBC 3.65 Mil/uL (3.80-5.20); WHITE BLOOD COUNT 18.2 K/uL (4.8-10.8)
[2017-10-09] MEDS: Levalbuterol 0.63 MG/3 ML Inhal Soln UD INH SCH ×2 (08:02→11:48)
[2017-10-09] MEDS: Insulin Regular 100 units/ml SC SCH ×2 (08:40→12:37)
[2017-10-09] MEDS: Azithromycin 500 MG in Sodium Chloride 0.9% 250 ML IVPB SCH (09:29)
[2017-10-09] MEDS: Enoxaparin 40 mg Syringe SC SCH (09:29)
[2017-10-09] MEDS: Promethazine DM 12.5 mg-30 mg/10 ml Syrup PO PRN (09:30)
[2017-10-09] MEDS: Pantoprazole 40 mg EC Tab PO SCH (09:32)
[2017-10-09] MEDS: BEPOTASTINE BESILATE BOTHEYES SCH (09:32)
[2017-10-09] MEDS: Patient's Own Med (Linagliptin/Metformin Hcl [Jentadueto 2.5 Mg-1000 Mg Tab] 1 TAB) PO SCH (09:32)
--- NOTE | 2017-10-09 09:55 | CP.PCM.DIS ---
<Kati Bustillos - Last Filed: 10/09/17 09:53> Provider - Provider Date of Admission: 10/07/17 11:14 Attending physician: Hermelindo Andrew MD Primary care physician: Dr. Andrew Time Spent in preparation of Discharge (in minutes): 30 Diagnosis - Discharge Diagnosis (1) COPD exacerbation Status: Resolved Priority: Low (2) Asthma exacerbation Status: Resolved Priority: Low Hospital Course - Lab Results Lab Results: Most Recent Lab Values WBC 18.2 K/uL (4.8-10.8) H 10/09/17 04:54 RBC 3.65 Mil/uL (3.80-5.20) L 10/09/17 04:54 Hgb 11.1 g/dL (12.0-16.0) L 10/09/17 04:54 Hct 33.7 % (34.0-47.0) L 10/09/17 04:54 MCV 92.4 fl (81.0-99.0) 10/09/17 04:54 MCH 30.4 pg (27.0-31.0) 10/09/17 04:54 MCHC 32.9 g/dL (33.0-37.0) L 10/09/17 04:54 RDW 14.0 % (11.5-14.5) 10/09/17 04:54 Plt Count 184 K/uL (130-400) 10/09/17 04:54 MPV 9.0 fl (7.2-11.7) 10/06/17 12:46 Neut % (Auto) 69.4 % (50.0-75.0) 10/06/17 12:46 Lymph % (Auto) 11.6 % (20.0-40.0) L 10/06/17 12:46 [place] % (Auto) 7.3 % (0.0-10.0) 10/06/17 12:46 Eos % (Auto) 10.3 % (0.0-4.0) H 10/06/17 12:46 Baso % (Auto) 1.4 % (0.0-2.0) 10/06/17 12:46 Neut # 7.2 K/uL (1.8-7.0) H 10/06/17 12:46 Lymph # 1.2 K/uL (1.0-4.3) 10/06/17 12:46 [place] # 0.8 K/uL (0.0-0.8) 10/06/17 12:46 Eos # 1.1 K/uL (0.0-0.7) H 10/06/17 12:46 Baso # 0.1 K/uL (0.0-0.2) 10/06/17 12:46 Sodium 143 mmol/l (132-148) 10/08/17 05:50 Potassium 4.1 MMOL/L (3.6-5.0) 10/08/17 05:50 Chloride 106 mmol/L (98-107) 10/08/17 05:50 Carbon Dioxide 25 mmol/L (22-30) 10/08/17 05:50 Anion Gap 16 (10-20) 10/08/17 05:50 BUN 31 mg/dl (7-17) H 10/08/17 05:50 Creatinine 1.2 mg/dl (0.7-1.2) 10/08/17 05:50 Est GFR ( Amer) 55 10/08/17 05:50 Est GFR (Non-Af Amer) 45 10/08/17 05:50 POC Glucose (mg/dL) 115 mg/dL (65-110) H 10/09/17 05:53 Random Glucose 185 mg/dL (65-105) H 10/08/17 05:50 Calcium 9.6 mg/dL (8.4-10.2) 10/08/17 05:50 Total Bilirubin 0.7 mg/dl (0.2-1.3) 10/07/17 04:40 AST 31 U/L (14-36) 10/07/17 04:40 ALT 44 U/L (9-52) 10/07/17 04:40 Alkaline Phosphatase 81 U/L (38-126) 10/07/17 04:40 Total Protein 7.4 G/DL (6.3-8.2) 10/07/17 04:40 Albumin 4.2 g/dL (3.5-5.0) 10/07/17 04:40 Globulin 3.1 gm/dL (2.2-3.9) 10/07/17 04:40 Albumin/Globulin Ratio 1.4 (1.0-2.1) 10/07/17 04:40 Influenza Typ A,B (EIA) Negative for flu a/b (NEGATIVE) 10/06/17 13:30 - Hospital Course Hospital Course: 62 yo female admitted for asthma exacerbation/COPD exacerbation, with mild persistent asthma. Patient improved s/p treatment with IV steroids, scheduled respiratory treatments, IV antibiotics and supplemental O2. Patient is medically stable for discharge with instructions to follow up with PMD Dr. Andrew on thursday10/14/17, resume home medications and take PO steroids as prescribed. - Date & Time of H&P Date of H&P: 10/07/17 Time of H&P: 13:38 Discharge Exam - Head Exam Head Exam: ATRAUMATIC, NORMOCEPHALIC - Eye Exam Eye Exam: EOMI - ENT Exam ENT Exam: Mucous Membranes Moist - Neck Exam Neck exam: Full Rom - Respiratory Exam Respiratory Exam: NORMAL BREATHING PATTERN - Cardiovascular Exam Cardiovascular Exam: REGULAR RHYTHM, +S1, +S2 - GI/Abdominal Exam GI & Abdominal Exam: Normal Bowel Sounds, Soft. absent: Tenderness - Extremities Exam Extremities exam: full ROM - Neurological Exam Neurological exam: Alert, CN II-XII Intact, Oriented x3 - Psychiatric Exam Psychiatric exam: Normal Affect, Normal Mood - Skin Skin Exam: Dry, Normal Color, Warm Discharge Plan - Follow Up Plan Condition: STABLE Disposition: HOME/ ROUTINE Patient education suggested?: Yes Instructions: Asthma (DC), COPD (Chronic Obstructive Pulmonary Disease) (DC), How Your Lungs Work (DC) Additional Instructions: Follow up with PMD Dr. Andrew on thursday10/14/17, resume home medications and take PO steroids as prescribed I was [facility] Bustillos re discharge plans and follow up Hermelindo Andrew M.D. Referrals: Hermelindo Andrew MD [Staff Provider] - <Hermelindo Andrew - Last Filed: 10/09/17 10:16> Provider - Provider Date of Admission: 10/07/17 11:14 Attending physician: Hermelindo Andrew MD Hospital Course - Lab Results Lab Results: Most Recent Lab Values WBC 18.2 K/uL (4.8-10.8) H 10/09/17 04:54 RBC 3.65 Mil/uL (3.80-5.20) L 10/09/17 04:54 Hgb 11.1 g/dL (12.0-16.0) L 10/09/17 04:54 Hct 33.7 % (34.0-47.0) L 10/09/17 04:54 MCV 92.4 fl (81.0-99.0) 10/09/17 04:54 MCH 30.4 pg (27.0-31.0) 10/09/17 04:54 MCHC 32.9 g/dL (33.0-37.0) L 10/09/17 04:54 RDW 14.0 % (11.5-14.5) 10/09/17 04:54 Plt Count 184 K/uL (130-400) 10/09/17 04:54 MPV 9.0 fl (7.2-11.7) 10/06/17 12:46 Neut % (Auto) 69.4 % (50.0-75.0) 10/06/17 12:46 Lymph % (Auto) 11.6 % (20.0-40.0) L 10/06/17 12:46 [place] % (Auto) 7.3 % (0.0-10.0) 10/06/17 12:46 Eos % (Auto) 10.3 % (0.0-4.0) H 10/06/17 12:46 Baso % (Auto) 1.4 % (0.0-2.0) 10/06/17 12:46 Neut # 7.2 K/uL (1.8-7.0) H 10/06/17 12:46 Lymph # 1.2 K/uL (1.0-4.3) 10/06/17 12:46 [place] # 0.8 K/uL (0.0-0.8) 10/06/17 12:46 Eos # 1.1 K/uL (0.0-0.7) H 10/06/17 12:46 Baso # 0.1 K/uL (0.0-0.2) 10/06/17 12:46 Sodium 143 mmol/l (132-148) 10/08/17 05:50 Potassium 4.1 MMOL/L (3.6-5.0) 10/08/17 05:50 Chloride 106 mmol/L (98-107) 10/08/17 05:50 Carbon Dioxide 25 mmol/L (22-30) 10/08/17 05:50 Anion Gap 16 (10-20) 10/08/17 05:50 BUN 31 mg/dl (7-17) H 10/08/17 05:50 Creatinine 1.2 mg/dl (0.7-1.2) 10/08/17 05:50 Est GFR ( Amer) 55 10/08/17 05:50 Est GFR (Non-Af Amer) 45 10/08/17 05:50 POC Glucose (mg/dL) 115 mg/dL (65-110) H 10/09/17 05:53 Random Glucose 185 mg/dL (65-105) H 10/08/17 05:50 Calcium 9.6 mg/dL (8.4-10.2) 10/08/17 05:50 Total Bilirubin 0.7 mg/dl (0.2-1.3) 10/07/17 04:40 AST 31 U/L (14-36) 10/07/17 04:40 ALT 44 U/L (9-52) 10/07/17 04:40 Alkaline Phosphatase 81 U/L (38-126) 10/07/17 04:40 Total Protein 7.4 G/DL (6.3-8.2) 10/07/17 04:40 Albumin 4.2 g/dL (3.5-5.0) 10/07/17 04:40 Globulin 3.1 gm/dL (2.2-3.9) 10/07/17 04:40 Albumin/Globulin Ratio 1.4 (1.0-2.1) 10/07/17 04:40 Influenza Typ A,B (EIA) Negative for flu a/b (NEGATIVE) 10/06/17 13:30
[2017-10-09 12:17] VITALS: BP 104/61; PULSE 116; TEMP 98.2; O2SAT 97
== END 2017-10-09 14:00 | disposition home or self-care (01) | DRG 191 ==
LOC: H.ER 11:09 → H.ERHOLD 15:20 → H.TEL 17:39 → OBSVTOIN 10-07 11:14
PROVIDERS: ADMIT Family Medicine; ATTEND Family Medicine
PROC: 3E0F73Z Introduction of Anti-inflammatory into Respiratory Tract, Via Natural or Artificial Opening (ICD-10-PCS; principal; 2017-10-07)
PROC: 3E0F7GC Introduction of Other Therapeutic Substance into Respiratory Tract, Via Natural or Artificial Opening (ICD-10-PCS; 2017-10-07)
DX: J44.1 Chronic obstructive pulmonary disease with (acute) exacerbation (principal); J45.31 Mild persistent asthma with (acute) exacerbation; E11.22 Type 2 diabetes mellitus with diabetic chronic kidney disease; I12.9 Hypertensive chronic kidney disease with stage 1 through stage 4 chronic kidney disease, or unspecified chronic kidney disease; N18.9 Chronic kidney disease, unspecified; E78.00 Pure hypercholesterolemia, unspecified; F31.9 Bipolar disorder, unspecified; F41.9 Anxiety disorder, unspecified; Z79.51 Long term (current) use of inhaled steroids; Z79.82 Long term (current) use of aspirin; Z87.891 Personal history of nicotine dependence; Z87.442 Personal history of urinary calculi; Z98.42 Cataract extraction status, left eye; Z98.41 Cataract extraction status, right eye

== ENCOUNTER 2018-06-25 11:26 | Inpatient (IN) | payer MEDICARE, OTHER ==
[2018-06-25 11:26] VITALS: BMI 29.9
[2018-06-25] MEDS ORDERED: Albuterol-Ipratrop 3 mg / 0.5 (3 ml) UD INH STA (11:48)
[2018-06-25] MEDS ORDERED: Albuterol-Ipratrop 3 mg / 0.5 (3 ml) UD ONE (12:17)
[2018-06-25 12:22] LABS: BASO # 0.1 K/uL (0.0-0.2); BASO % 0.8 % (0.0-2.0); EOS # 0.7 K/uL (0.0-0.7); EOS % 7.5 % (0.0-4.0); HEMOGLOBIN 11.1 g/dL (12.0-16.0); LYMPH # 1.2 K/uL (1.0-4.3); LYMPH % 11.8 % (20.0-40.0); MEAN CELL VOLUME 94.8 fl (81.0-99.0); MEAN CORPUSCULAR HEMOGLOBIN 31.1 pg (27.0-31.0); MEAN CORPUSCULAR HGB CONC 32.9 g/dL (33.0-37.0); MEAN PLATELET VOLUME 9.5 fl (7.2-11.7); MONO # 0.7 K/uL (0.0-0.8); MONO % 6.9 % (0.0-10.0); NEUT # 7.3 K/uL (1.8-7.0); RBC 3.56 Mil/uL (3.80-5.20); RED CELL DISTRIBUTION WIDTH 14.4 % (11.5-14.5)
[2018-06-25 12:31] LABS: VENOUS BLOOD GAS BASE EXCESS 5.3 mmol/L (0.0-2.0); VENOUS BLOOD GAS PCO2 55 mmHg (40-60); VENOUS BLOOD GAS PO2 30 mm/Hg (30-55); VENOUS BLOOD PH 7.37 (7.32-7.43)
[2018-06-25 12:33] LABS: ALB/GLOB RATIO 1.2 (1.0-2.1); ALT/SGPT 42 U/L (9-52); AST/SGOT 37 U/L (14-36); BLOOD UREA NITROGEN 27 mg/dl (7-17); CALCIUM 9.8 mg/dL (8.4-10.2); GFR NON-AFRICAN AMERICAN 32
[2018-06-25 12:45] LABS: B-TYPE NATRIURETIC PEPTIDE 133 pg/ml (0-900)
[2018-06-25] MEDS ORDERED: Sodium Chloride 0.9% 1,000 ML IV STA (12:48)
--- NOTE | 2018-06-25 13:36 | RAD ---
Date of service: 06/25/2018 HISTORY: cough/sob COMPARISON: 10/06/2017 TECHNIQUE: Chest PA and lateral FINDINGS: LUNGS: No active pulmonary disease. PLEURA: No significant pleural effusion identified. No pneumothorax apparent. CARDIOVASCULAR: Normal. OSSEOUS STRUCTURES: No significant abnormalities. VISUALIZED UPPER ABDOMEN: Normal. OTHER FINDINGS: None. IMPRESSION: No active disease.
--- NOTE | 2018-06-25 14:50 | CARD ---
APPROVED REPORT Date of service: 06/25/2018 EKG Measurement Heart [id number] CT [id number] <Conclusion> Sinus tachycardia Otherwise normal ECG
[2018-06-25 15:21] LABS: VENOUS BLOOD GAS BASE EXCESS 1.7 mmol/L (0.0-2.0); VENOUS BLOOD GAS PCO2 48 mmHg (40-60); VENOUS BLOOD GAS PO2 38 mm/Hg (30-55); VENOUS BLOOD PH 7.37 (7.32-7.43)
--- NOTE | 2018-06-25 16:03 | ED PDOC ---
HPI: SOB/CHF/COPD Time Seen by Provider: 06/25/18 11:48 Chief Complaint (Nursing): Shortness Of Breath Chief Complaint (Provider): SOB/COUGH History Per: Patient (62 Y/O FEMALE H/O COPD SENT BY AMBULANCE FOR EVALUATION OF SOB/COUGH THAT BEGAN TODAY. DENIES ANY FEVERS/CHILLS. GIVEN SOLUMEDROL/DUONEB BY MEDICS AND NOTES IMPROVEMENT WITH MEDICATIONS. DENIES ANY CHEST MARIANNA N/VOMITING.) Past Medical History Reviewed: Historical Data, Nursing Documentation, Vital Signs Vital Signs: Last Vital Signs Temp 98 F 06/25/18 14:21 Pulse 98 H 06/25/18 14:21 Resp 19 06/25/18 14:21 BP 120/78 06/25/18 14:21 Pulse Ox 98 06/25/18 14:21 - Medical History PMH: Anxiety, Arthritis, Asthma, Bipolar Disorder, COPD, Depression, Diabetes, HTN, Hypercholesterolemia, Kidney Stones (RIGHT), Peripheral Edema Denies: Atrial Fibrillation, HIV, Chronic Kidney Disease - Family History Family History: States: Unknown Family Hx - Immunization History Hx Tetanus Toxoid Vaccination: No Hx Influenza Vaccination: Yes Hx Pneumococcal Vaccination: Yes - Home Medications Home Medications: Ambulatory Orders Medication Instructions Recorded Bepotastine Besilate [Bepreve] 1 drop BOTHEYES DAILY 11/04/15 Montelukast [Singulair] 10 mg PO HS 11/04/15 Rosuvastatin Calcium [Crestor] 20 mg PO HS 11/04/15 Albuterol HFA [Ventolin HFA 90 2 puff IH Q4H PRN 10/16/16 mcg/actuation (8 g)] Aspirin [Ecotrin] 81 mg PO DAILY 10/16/16 Doxazosin [Cardura] 2 mg PO HS 10/16/16 Budesonide/Formoterol Fumarate 1 puff IH Q12H 04/06/17 [Symbicort 160-4.5 Mcg Inhaler] Promethazine DM [Phenergan DM Oral 10 ml PO Q8 PRN 07/05/17 Syrup] Albuterol 0.083% [Albuterol 0.083% 3 ml IH Q6 PRN 10/06/17 Inhal Suagr (2.5 mg/3 ml) UD] Olmesartan/Hydrochlorothiazide 1 tab PO DAILY 10/06/17 [Benicar Hct 40-12.5 mg Tablet] Allopurinol [Zyloprim] 100 mg PO DAILY 06/25/18 Diltiazem HCl [Diltiazem 24Hr Cd] 120 mg PO DAILY 06/25/18 Furosemide [Lasix] 20 mg PO DAILY PRN 06/25/18 Linagliptin [Tradjenta] 5 mg PO DAILY 06/25/18 - Allergies Allergies/Adverse Reactions: Allergies Allergy/AdvReac Type Severity Reaction Status Date / Time POLLEN Allergy Intermediate ITCHING Uncoded 07/05/17 13:25 Review of Systems ROS Statement: Except As Marked, All Systems Reviewed And Found Negative Respiratory: Positive for: Cough, Shortness of Breath Physical Exam - Reviewed Nursing Documentation Reviewed: Yes Vital Signs Reviewed: Yes - Physical Exam Appears: Positive for: Well, Non-toxic, No Acute Distress Head Exam: Positive for: ATRAUMATIC, NORMAL INSPECTION, NORMOCEPHALIC Skin: Positive for: Normal Color, Warm, DRY Eye Exam: Positive for: EOMI, Normal appearance, PERRL ENT: Positive for: Normal ENT Inspection Neck: Positive for: Normal, Painless ROM Cardiovascular/Chest: Positive for: Regular Rate, Rhythm Respiratory: Positive for: Normal Breath Sounds, Wheezing Gastrointestinal/Abdominal: Positive for: Normal Exam, Soft Back: Positive for: Normal Inspection Extremity: Positive for: Normal ROM Neurologic/Psych: Positive for: Alert, Oriented - Laboratory Results Result Diagrams: 06/25/18 12:15 06/25/18 12:15 - ECG O2 Sat by Pulse Oximetry: 98 - Progress ED Course And Treament: EKG: SINUS TACHYCARDIA 116BPM; NO ECTOPY NO ACUTE CHANGES CXR: NO ACUTE INFILTRATE DUONEB X 1 DOSE LACTATE NOTED ELEVATED 3.1 NS 1 LITER 500ML PER HOUR REPEAT LACTATE NOTED ELEVATED 3.3 D/W DR. CHIN. WILL START ON ZITHROMAX FOR BRONCHITIS AND OBSERVED 23 FOR COPD EXACERBATION. Disposition - Clinical Impression Clinical Impression: COPD exacerbation - Patient ED Disposition Is Patient to be Admitted: Yes - Disposition Disposition Time: 15:55 Condition: FAIR - Pt Status Changed To: Hospital Disposition Of: Observation
[2018-06-25] MEDS ORDERED: Albuterol HFA 90 mcg/actuation (8 g) IH PRN (21:47)
[2018-06-25] MEDS ORDERED: Albuterol 0.083% Inhal Sol (2.5 mg/3 mL) UD IH PRN (21:47)
[2018-06-25] MEDS ORDERED: Patient's Own Med (Budesonide/Formoterol Fumarate [Symbicort 160-4.5 Mcg Inhaler] 1 PUFF) IH SCH (22:00)
[2018-06-25] MEDS ORDERED: Dextrose 50% SYRINGE Inj (50 ml) IV PRN (22:02)
[2018-06-25] MEDS ORDERED: Glucagon Recombinant 1 mg Inj IM PRN (22:02)
[2018-06-26] MEDS: Fluticasone-Salmeterol 250-50mcg Diskus IH SCH ×3 (00:08→21:04)
[2018-06-26] MEDS: MethylPREDNISolone 40 mg Vial IVP SCH ×3 (00:12→17:29)
[2018-06-26] MEDS: Promethazine DM 6.25 mg-15 mg/5 ml Syrup PO PRN (00:13)
[2018-06-26] MEDS ORDERED: methylPREDNISolone 40 MG in Sodium Chloride 0.9% 50 ML IVPB SCH (01:00)
[2018-06-26 07:05] LABS: BASO % 0.1 % (0.0-2.0); HEMOGLOBIN 11.6 g/dL (12.0-16.0); LYMPH # 0.6 K/uL (1.0-4.3); LYMPH % 4.1 % (20.0-40.0); MEAN CORPUSCULAR HEMOGLOBIN 30.9 pg (27.0-31.0); MEAN CORPUSCULAR HGB CONC 33.2 g/dL (33.0-37.0); MEAN PLATELET VOLUME 9.9 fl (7.2-11.7); MONO # 0.1 K/uL (0.0-0.8); MONO % 0.6 % (0.0-10.0); NEUT # 15.1 K/uL (1.8-7.0); NEUT % 95.2 % (50.0-75.0); NRBC % 0.1 % (0.0-0.0); PLATELET COUNT 245 K/uL (130-400); RBC 3.77 Mil/uL (3.80-5.20); RED CELL DISTRIBUTION WIDTH 14.8 % (11.5-14.5); WHITE BLOOD COUNT 15.8 K/uL (4.8-10.8)
[2018-06-26 07:23] LABS: ALB/GLOB RATIO 1.3 (1.0-2.1); ALBUMIN 4.2 g/dL (3.5-5.0)
[2018-06-26 08:41] LABS: BANDS 1 % (0-2); LYMPHOCYTE 4 % (20-50); MONOCYTE 1 % (0-10); NEUTROPHIL 94 % (42-75); TOTAL CELLS COUNTED 100
[2018-06-26 08:42] LABS: ANISOCYTOSIS SLIGHT; LARGE PLATELETS PRESENT; OVALOCYTES SLIGHT; PLATELET ESTIMATE NORMAL (NORMAL)
[2018-06-26] MEDS ORDERED: BEPOTASTINE BESILATE BOTHEYES SCH (09:00)
[2018-06-26] MEDS ORDERED: Patient's Own Med (Olmesartan/Hydrochlorothiazide [Benicar Hct 40-12.5 Mg Tablet] 1 TAB) PO SCH (09:00)
[2018-06-26] MEDS: Insulin Lispro (humaLOG) 100 Units/ml Inj SC SCH ×4 (09:10→22:24)
[2018-06-26] MEDS: diltiaZEM 120 mg/24 Hours CD Cap PO SCH (09:12)
--- NOTE | 2018-06-26 11:02 | CP.PCM.HP ---
History of Present Illness - History of Present Illness History of Present Illness: 62 yo female w/ PMH copd, HTN, DM type 2, anxiety, bi-polar disorder, and depression presented in ED with complaint of SOB and cough. Patient was evaluated and treated in ED. Patient was then admitted for COPD exacerbation. Patient was seen and examined at bedside. dyspnea improving though continues with cough. Denies chest pain, fever, chills, nausea, vomiting. PMD: Dr. Andrew SurHx: cataract surgery FMHx: father at 57 from [place], DM; mother at 92 from Alzheimer and dementia complications; older brother at 43 s/p heart transplant complications-had heart failure secondary to smoking and drinking, older sister has type 2 DM, younger brother has IDDM type 1. SocHx: denies smoking, EToH, and drugs Medications: see medication reconciliation Allergies: NKDA Present on Admission - Present on Admission Any Indicators Present on Admission: No Review of Systems - Review of Systems All systems: reviewed and no additional remarkable complaints except (mentioned in HPI) Past Patient History - Infectious Disease Hx of Infectious Diseases: None - Past Medical History & Family History Past Medical History?: Yes Past Family History: Reviewed and not pertinent - Past Social History Smoking Status: Never Smoked - CARDIAC Hx Cardiac Disorders: Yes - PULMONARY Hx Respiratory Disorders: Yes - NEUROLOGICAL Hx Neurological Disorder: No - HEENT Hx HEENT Problems: No Hx Cataracts: Yes (sx) - RENAL Hx Chronic Kidney Disease: No - ENDOCRINE/METABOLIC Hx Endocrine Disorders: Yes Hx Diabetes Mellitus Type 2: Yes - HEMATOLOGICAL/ONCOLOGICAL Hx Human Immunodeficiency Virus (HIV): No - INTEGUMENTARY Hx Dermatological Problems: No - MUSCULOSKELETAL/RHEUMATOLOGICAL Hx Falls: No - GASTROINTESTINAL Hx Gastrointestinal Disorders: No - GENITOURINARY/GYNECOLOGICAL Hx Genitourinary Disorders: No - PSYCHIATRIC Hx Psychophysiologic Disorder: Yes Hx Anxiety: Yes Hx Depression: Yes Hx Substance Use: No - SURGICAL HISTORY Hx Surgeries: Yes Hx Cataract Extraction: Yes (BILATERAL) Other/Comment: CYSTO WITH STENTS X2 - ANESTHESIA Hx Anesthesia: Yes Hx Anesthesia Reactions: No Hx Malignant Hyperthermia: No Meds Allergies/Adverse Reactions: Allergies Allergy/AdvReac Type Severity Reaction Status Date / Time POLLEN Allergy Intermediate ITCHING Uncoded 07/05/17 13:25 Physical Exam - Constitutional Appears: Well, Non-toxic, No Acute Distress - Head Exam Head Exam: NORMAL INSPECTION - Eye Exam Eye Exam: Normal appearance - Neck Exam Neck exam: Positive for: Normal Inspection - Respiratory Exam Respiratory Exam: Rhonchi, Wheezes, NORMAL BREATHING PATTERN - Cardiovascular Exam Cardiovascular Exam: Tachycardia, +S1, +S2 - GI/Abdominal Exam GI & Abdominal Exam: Normal Bowel Sounds, Soft - Extremities Exam Extremities exam: Positive for: normal inspection - Back Exam Back exam: NORMAL INSPECTION - Neurological Exam Neurological exam: Alert, Oriented x3 - Psychiatric Exam Psychiatric exam: Normal Affect, Normal Mood - Skin Skin Exam: Dry, Normal Color, Warm Results - Vital Signs Recent Vital Signs: Last Vital Signs Temp 98 F 06/26/18 08:16 Pulse 117 H 06/26/18 08:16 Resp 18 06/26/18 08:16 BP 134/80 06/26/18 09:13 Pulse Ox 95 06/26/18 08:16 - Labs Result Diagrams: 06/27/18 06:25 06/27/18 06:25 Labs: Laboratory Results - last 24 hr 06/25/18 06/25/18 06/25/18 11:54 12:15 12:15 WBC 10.0 RBC 3.56 L Hgb 11.1 L Hct 33.8 L MCV 94.8 D MCH 31.1 H MCHC 32.9 L RDW 14.4 Plt Count 205 MPV 9.5 Neut % (Auto) 73.0 Lymph % (Auto) 11.8 L [place] % (Auto) 6.9 Eos % (Auto) 7.5 H Baso % (Auto) 0.8 Neut # (Auto) 7.3 H Lymph # (Auto) 1.2 [place] # (Auto) 0.7 Eos # (Auto) 0.7 Baso # (Auto) 0.1 Neutrophils % (Manual) Band Neutrophils % Lymphocytes % (Manual) Monocytes % (Manual) Platelet Estimate Large Platelets Anisocytosis (manual) Ovalocytes pO2 30 VBG pH 7.37 VBG pCO2 55 VBG HCO3 28.2 VBG Total CO2 33.5 H VBG O2 Sat (Calc) 62.1 VBG Base Excess 5.3 H VBG Potassium 3.6 Sodium 142.0 143 Chloride 104.0 105 Glucose 171 H Lactate 3.1 H FiO2 21.0 Potassium 3.6 Carbon Dioxide 31 H Anion Gap 11 BUN 27 H Creatinine 1.6 H Est GFR ( Amer) 39 Est GFR (Non-Af Amer) 32 POC Glucose (mg/dL) Random Glucose 170 H Calcium 9.8 Phosphorus Magnesium Total Bilirubin 0.3 AST 37 H ALT 42 Alkaline Phosphatase 83 Troponin I < 0.0120 NT-Pro-B Natriuret Pep 133 Total Protein 7.3 Albumin 4.0 Globulin 3.2 Albumin/Globulin Ratio 1.2 Venous Blood Potassium 3.6 06/25/18 06/26/18 06/26/18 15:00 05:01 05:36 WBC 15.8 H D RBC 3.77 L Hgb 11.6 L Hct 35.0 MCV 93.0 MCH 30.9 MCHC 33.2 RDW 14.8 H Plt Count 245 MPV 9.9 Neut % (Auto) 95.2 H Lymph % (Auto) 4.1 L [place] % (Auto) 0.6 Eos % (Auto) 0.0 Baso % (Auto) 0.1 Neut # (Auto) 15.1 H Lymph # (Auto) 0.6 L [place] # (Auto) 0.1 Eos # (Auto) 0.0 Baso # (Auto) 0.0 Neutrophils % (Manual) 94 H Band Neutrophils % 1 Lymphocytes % (Manual) 4 L Monocytes % (Manual) 1 Platelet Estimate Normal Large Platelets Present Anisocytosis (manual) Slight Ovalocytes Slight pO2 38 VBG pH 7.37 VBG pCO2 48 VBG HCO3 25.5 VBG Total CO2 29.2 H VBG O2 Sat (Calc) 76.2 H VBG Base Excess 1.7 VBG Potassium 3.9 Sodium 140.0 Chloride 105.0 Glucose 156 H Lactate 3.3 H FiO2 21.0 Potassium Carbon Dioxide Anion Gap BUN Creatinine Est GFR ( Amer) Est GFR (Non-Af Amer) POC Glucose (mg/dL) 157 H Random Glucose Calcium Phosphorus Magnesium Total Bilirubin AST ALT Alkaline Phosphatase Troponin I NT-Pro-B Natriuret Pep Total Protein Albumin Globulin Albumin/Globulin Ratio Venous Blood Potassium 3.9 06/26/18 05:36 WBC RBC Hgb Hct MCV MCH MCHC RDW Plt Count MPV Neut % (Auto) Lymph % (Auto) [place] % (Auto) Eos % (Auto) Baso % (Auto) Neut # (Auto) Lymph # (Auto) [place] # (Auto) Eos # (Auto) Baso # (Auto) Neutrophils % (Manual) Band Neutrophils % Lymphocytes % (Manual) Monocytes % (Manual) Platelet Estimate Large Platelets Anisocytosis (manual) Ovalocytes pO2 VBG pH VBG pCO2 VBG HCO3 VBG Total CO2 VBG O2 Sat (Calc) VBG Base Excess VBG Potassium Sodium 141 Chloride 103 Glucose Lactate FiO2 Potassium 4.0 Carbon Dioxide 25 Anion Gap 17 BUN 27 H Creatinine 1.3 H Est GFR ( Amer) 50 Est GFR (Non-Af Amer) 41 POC Glucose (mg/dL) Random Glucose 169 H Calcium 10.0 Phosphorus 3.0 Magnesium 1.8 Total Bilirubin 0.7 AST 44 H ALT 44 Alkaline Phosphatase 69 Troponin I NT-Pro-B Natriuret Pep 984 H Total Protein 7.5 Albumin 4.2 Globulin 3.3 Albumin/Globulin Ratio 1.3 Venous Blood Potassium Assessment & Plan - Assessment and Plan (Free Text) Assessment: 62 yo female w/ PMH copd, HTN, DM type 2, anxiety, bi-polar disorder, and depression admitted for COPD exacerbation. Noted to have lactic acidosis as well. no fever/chills. Now with leukocytosis though can be 2ndary to steroids. Non toxic appearing. Patient does state REAGAN x 2 weeks. plan obtain echo due to recent reagan and elevated bnp c/w steroids c/w duonebs c/w azithromycin c/w home meds hold lasix IV fluids monitor lactic acid monitor vitals follow blood cx's
[2018-06-26] MEDS: Azithromycin 500 MG in Sodium Chloride 0.9% 250 ML IVPB SCH (13:44)
[2018-06-26] MEDS: Sodium Chloride 0.9% 1,000 ML IV SCH ×2 (13:45→22:00)
--- NOTE | 2018-06-26 14:25 | CARD ---
APPROVED REPORT Date of service: 06/26/2018 EXAM: Two-dimensional and M-mode echocardiogram with Doppler and color Doppler. Other Information Quality : AverageRhythm : Tachycardia Technically limited study due to body habitus. INDICATION ELEVATED BNP/SHORTNESS OF BREATH M-Mode DIMENSIONS Left Atrium (MM)4.66 (2.5-4.0cm)Aortic Root2.88 (2.2-3.7cm) Aortic Valve AoV Peak Lvcxdonq807.5cm/sAoV VTI28.4cmAO Peak GR.11mmHg LVOT Peak Areifltz680.9cm/sLVOT VTI21.35cmAO Mean GR.8mmHg Mitral Valve E/A ratio0.0 TDI E/Lateral E'0.0E/Medial E'0.0 Tricuspid Valve TR Peak [id number]/sTR Peak Gr.19mmHg LEFT VENTRICLE The left ventricle is normal size. There is normal left ventricular wall thickness. The left ventricular systolic function is normal. The estimated ejection fraction is 60-65%. Tachcyardiac heart. No regional wall motion abnormalities noted.. Transmitral Doppler flow pattern is Grade I-abnormal relaxation pattern. No left ventricle thrombus noted on this study. There is no ventricular septal defect visualized. There is no left ventricular aneurysm. There is no mass noted in the left ventricle. RIGHT VENTRICLE The right ventricle is normal size. There is normal right ventricular wall thickness. The right ventricular systolic function is normal. ATRIA The left atrium is mildly dilated. The right atrium size is normal. The interatrial septum is intact with no evidence for an atrial septal defect. AORTIC VALVE The aortic valve is normal in structure. No aortic regurgitation is present. There is no aortic valvular stenosis. There is no aortic valvular vegetation. MITRAL VALVE The mitral valve is normal in structure. There is no evidence of mitral valve prolapse. There is no mitral valve stenosis. There is no mitral valve regurgitation noted. TRICUSPID VALVE The tricuspid valve is normal in structure. There is mild tricuspid regurgitation. RVSP is calculated at 21 mm Hg. There is no tricuspid valve prolapse or vegetation. There is no tricuspid valve stenosis. PULMONIC VALVE The pulmonary valve is normal in structure. There is no pulmonic valvular regurgitation. There is no pulmonic valvular stenosis. GREAT VESSELS The aortic root is normal in size. The ascending aorta is normal in size. The pulmonary artery is normal. The IVC is normal in size and collapses >50% with inspiration. PERICARDIAL EFFUSION There is no pericardial effusion. There is no pleural effusion. <Conclusion> The estimated ejection fraction is 60-65%. Tachycardic heart. Transmitral Doppler flow pattern is Grade I-abnormal relaxation pattern. The right ventricular systolic function is normal. The left atrium is mildly dilated. There is mild tricuspid regurgitation. RVSP is calculated at 21 mm Hg.
[2018-06-27] MEDS: Promethazine DM 6.25 mg-15 mg/5 ml Syrup PO PRN (01:07)
[2018-06-27] MEDS: MethylPREDNISolone 40 mg Vial IVP SCH ×3 (01:09→21:51)
[2018-06-27 07:54] LABS: HEMOGLOBIN 10.9 g/dL (12.0-16.0); MEAN CORPUSCULAR HEMOGLOBIN 30.8 pg (27.0-31.0); MEAN CORPUSCULAR HGB CONC 32.8 g/dL (33.0-37.0); RBC 3.53 Mil/uL (3.80-5.20); RED CELL DISTRIBUTION WIDTH 15.1 % (11.5-14.5)
[2018-06-27] MEDS: diltiaZEM 120 mg/24 Hours CD Cap PO SCH (08:11)
[2018-06-27] MEDS: Insulin Lispro (humaLOG) 100 Units/ml Inj SC SCH ×4 (08:11→21:50)
[2018-06-27] MEDS: Fluticasone-Salmeterol 250-50mcg Diskus IH SCH ×2 (08:11→21:50)
[2018-06-27 08:13] LABS: ALB/GLOB RATIO 1.2 (1.0-2.1); ALBUMIN 3.7 g/dL (3.5-5.0); CALCIUM 9.5 mg/dL (8.4-10.2)
[2018-06-27] MEDS: Azithromycin 500 MG in Sodium Chloride 0.9% 250 ML IVPB SCH (08:22)
[2018-06-27] MEDS: Sodium Chloride 0.9% 1,000 ML IV SCH ×2 (09:53→21:14)
[2018-06-27] MEDS ORDERED: Sodium Chloride 0.9% 1,000 ML IV SCH (12:45)
--- NOTE | 2018-06-27 15:54 | CP.PCM.PN ---
Subjective - Date & Time of Evaluation Date of Evaluation: 06/27/18 Time of Evaluation: 11:00 - Subjective Subjective: patient seen and examined at bedside. no acute events overnight. feels well. no resp distress as rest. no fever/chills. Objective - Vital Signs/Intake and Output Vital Signs (last 24 hours): Temp Pulse Resp BP Pulse Ox 97.7 F 117 H 16 114/72 95 06/27/18 12:33 06/27/18 12:33 06/27/18 12:33 06/27/18 12:33 06/27/18 12:33 - Medications Medications: Current Medications Albuterol (Ventolin Hfa 90 Mcg/Actuation (8 G)) 2 puff IH Q4H PRN PRN Reason: Shortness of Breath Albuterol/Ipratropium (Duoneb 3 Mg/0.5 Mg (3 Ml) Ud) 3 ml INH RTID KYLIE Allopurinol (Zyloprim) 100 mg PO DAILY [facility] Last Admin: 06/27/18 08:13 Dose: 100 mg Aspirin (Ecotrin) 81 mg PO DAILY [facility] Last Admin: 06/27/18 08:13 Dose: 81 mg Atorvastatin Calcium (Lipitor) 40 mg PO HS [facility] Last Admin: 06/26/18 21:05 Dose: 40 mg Dextrose (Dextrose 50% Inj) 0 ml IV STAT PRN; Protocol PRN Reason: Hypoglycemia Protocol Dextrose (Glutose 15) 0 gm PO ONCE PRN; Protocol PRN Reason: Hypoglycemia Protocol Diltiazem HCl (Cardizem Cd) 120 mg PO DAILY [facility] Last Admin: 06/27/18 08:11 Dose: 120 mg Doxazosin Mesylate (Cardura) 2 mg PO HS [facility] Last Admin: 06/26/18 21:05 Dose: 2 mg Furosemide (Lasix) 20 mg PO DAILY PRN PRN Reason: Leg swelling/edema Last Admin: 06/26/18 09:13 Dose: 20 mg Glucagon (Glucagen Diagnostic Kit) 0 mg IM STAT PRN; Protocol PRN Reason: Hypoglycemia Protocol Home Med (Bepotastine Besilate [Bepreve]) 1 drop BOTHEYES DAILY [facility] Hydrochlorothiazide (Microzide) 12.5 mg PO DAILY [facility] Last Admin: 06/27/18 08:12 Dose: 12.5 mg Azithromycin 500 mg/ Sodium (Chloride) 250 mls @ 250 mls/hr IVPB DAILY KYLIE; Protocol Last Admin: 06/27/18 08:22 Dose: 250 mls/hr Sodium Chloride (Sodium Chloride 0.9%) 1,000 mls @ 999 mls/hr IV .Q1H1M KYLIE Stop: 06/28/18 12:43 Sodium Chloride (Sodium Chloride 0.9%) 1,000 mls @ 100 mls/hr IV .Q10H KYLIE Stop: 06/28/18 15:51 Insulin Human Lispro (Humalog) 0 units SC ACHS KYLIE; Protocol Last Admin: 06/27/18 11:44 Dose: 2 units Losartan Potassium (Cozaar) 100 mg PO DAILY KYLIE Last Admin: 06/27/18 08:12 Dose: 100 mg Methylprednisolone (Solu-Medrol) 40 mg IVP Q12 KYLIE Montelukast Sodium (Singulair) 10 mg PO HS [facility] Last Admin: 06/26/18 21:05 Dose: 10 mg Promethazine HCl/Dextromethorphan (Phenergan Dm Syrup) 10 ml PO Q8 PRN PRN Reason: Cough Last Admin: 06/27/18 01:07 Dose: 10 ml Fluticasone/Salmeterol (Advair Diskus 250/50) 1 puff IH Q12 KYLIE Last Admin: 06/27/18 08:11 Dose: 1 puff Sitagliptin Phosphate (Januvia) 50 mg PO DAILY [facility] Last Admin: 06/27/18 08:12 Dose: 50 mg - Labs Labs: 06/27/18 06:25 06/27/18 06:25 - Constitutional Appears: Well, Non-toxic, No Acute Distress - Head Exam Head Exam: NORMAL INSPECTION - Eye Exam Eye Exam: Normal appearance - Neck Exam Neck Exam: Normal Inspection - Respiratory Exam Respiratory Exam: Rhonchi, NORMAL BREATHING PATTERN - Cardiovascular Exam Cardiovascular Exam: Tachycardia, +S1, +S2 - GI/Abdominal Exam GI & Abdominal Exam: Soft, Normal Bowel Sounds - Extremities Exam Extremities Exam: Normal Inspection - Back Exam Back Exam: NORMAL INSPECTION - Neurological Exam Neurological Exam: Alert, Awake, Oriented x3 - Psychiatric Exam Psychiatric exam: Normal Affect, Normal Mood - Skin Skin Exam: Normal Color, Warm Assessment and Plan - Assessment and Plan (Free Text) Assessment: 62 yo female w/ PMH copd, HTN, DM type 2, anxiety, bi-polar disorder, and depression admitted for COPD exacerbation. continues with lactic acidosis. no fever/chills. Clinically improving. leukocytosis though can be 2ndary to steroids. Non toxic appearing. plan echo reviewed decrease steroids c/w duonebs prn c/w azithromycin c/w home meds increase diltiazem due to tachycardia hold lasix IV fluids increased monitor lactic acid monitor vitals follow blood cx's
[2018-06-28 00:18] VITALS: RESP 18
[2018-06-28] MEDS: Sodium Chloride 0.9% 1,000 ML IV SCH (04:17)
[2018-06-28 05:58] LABS: HEMOGLOBIN 10.7 g/dL (12.0-16.0); MEAN CELL VOLUME 93.7 fl (81.0-99.0); MEAN CORPUSCULAR HEMOGLOBIN 30.5 pg (27.0-31.0); MEAN CORPUSCULAR HGB CONC 32.6 g/dL (33.0-37.0); RBC 3.5 Mil/uL (3.80-5.20)
[2018-06-28 07:23] LABS: ALB/GLOB RATIO 1.2 (1.0-2.1); ALBUMIN 3.4 g/dL (3.5-5.0); CALCIUM 9.2 mg/dL (8.4-10.2)
[2018-06-28] MEDS: Albuterol-Ipratrop 3 mg / 0.5 (3 ml) UD INH SCH ×2 (07:31→11:21)
[2018-06-28] MEDS: Fluticasone-Salmeterol 250-50mcg Diskus IH SCH (08:40)
[2018-06-28] MEDS: Insulin Lispro (humaLOG) 100 Units/ml Inj SC SCH ×2 (08:45→12:16)
[2018-06-28] MEDS: MethylPREDNISolone 40 mg Vial IVP SCH (08:49)
[2018-06-28] MEDS ORDERED: diltiaZEM 180 mg/24 Hours CD Cap PO SCH (09:00)
[2018-06-28] MEDS ORDERED: Influenza Vaccine 60 MCG/0.5 ML SYR (3 yr & up) IM ONE (09:33)
[2018-06-28] MEDS: Azithromycin 500 MG in Sodium Chloride 0.9% 250 ML IVPB SCH (09:58)
--- NOTE | 2018-06-28 12:28 | PQF ---
PROVIDER RESPONSE TEXT: Likely due to hypovolemia REVIEWER QUERY TEXT: Documentation Clarification Your help is requested in clarifying the following clinical documentation, if you can please further specify in the medical record and discharge summary. Etiology of Lactic Acidosis if known or unable to determine The patient's Clinical Indicators include: Admitted with SOB and cough. Lactate > 3.0 Dx: COPD exacerbation, Lactic Acidosis Query created by: Vinita Ruiz on 06/28/2018 10:03 AM Electronically signed by: Sam Hawk 06/28/2018 12:24 PM
--- NOTE | 2018-06-28 12:28 | PQF ---
PROVIDER RESPONSE TEXT: Diabetes with hyperglycemia REVIEWER QUERY TEXT: Diabetic Associated Manifestations Please specify any manifestations associated / due to diabetes Such as: -- Diabetes with hyperglycemia -- Diabetes with hypoglycemia -- Diabetes with renal manifestation please specify the type -- Diabetes with neurologic manifestation please specify the type -- Diabetes with ophthalmic manifestation please specify the type -- Diabetes with peripheral circulatory manifestation please specify the type -- Other, please specify The patient's Clinical Indicators include: Patient with a history of DM II. Glucose runnin-230. Rx: Anupam, [employer] with insulin coverage Query created by: Vinita Ruiz on 06/28/2018 9:54 AM Electronically signed by: Sam Hawk 06/28/2018 12:24 PM
--- NOTE | 2018-06-28 12:49 | CP.PCM.DIS ---
Provider - Provider Date of Admission: 06/27/18 15:53 Attending physician: Hermelindo Andrew MD Time Spent in preparation of Discharge (in minutes): 30 Hospital Course - Lab Results Lab Results: Micro Results 06/25/18 12:15 Blood Blood Culture - Preliminary NO GROWTH AFTER 3 DAYS Most Recent Lab Values WBC 17.0 K/uL (4.8-10.8) H 06/28/18 04:20 RBC 3.50 Mil/uL (3.80-5.20) L 06/28/18 04:20 Hgb 10.7 g/dL (12.0-16.0) L 06/28/18 04:20 Hct 32.8 % (34.0-47.0) L 06/28/18 04:20 MCV 93.7 fl (81.0-99.0) 06/28/18 04:20 MCH 30.5 pg (27.0-31.0) 06/28/18 04:20 MCHC 32.6 g/dL (33.0-37.0) L 06/28/18 04:20 RDW 15.0 % (11.5-14.5) H 06/28/18 04:20 Plt Count 202 K/uL (130-400) 06/28/18 04:20 MPV 9.9 fl (7.2-11.7) 06/26/18 05:36 Neut % (Auto) 95.2 % (50.0-75.0) H 06/26/18 05:36 Lymph % (Auto) 4.1 % (20.0-40.0) L 06/26/18 05:36 [place] % (Auto) 0.6 % (0.0-10.0) 06/26/18 05:36 Eos % (Auto) 0.0 % (0.0-4.0) 06/26/18 05:36 Baso % (Auto) 0.1 % (0.0-2.0) 06/26/18 05:36 Neut # (Auto) 15.1 K/uL (1.8-7.0) H 06/26/18 05:36 Lymph # (Auto) 0.6 K/uL (1.0-4.3) L 06/26/18 05:36 [place] # (Auto) 0.1 K/uL (0.0-0.8) 06/26/18 05:36 Eos # (Auto) 0.0 K/uL (0.0-0.7) 06/26/18 05:36 Baso # (Auto) 0.0 K/uL (0.0-0.2) 06/26/18 05:36 Neutrophils % (Manual) 94 % (42-75) H 06/26/18 05:36 Band Neutrophils % 1 % (0-2) 06/26/18 05:36 Lymphocytes % (Manual) 4 % (20-50) L 06/26/18 05:36 Monocytes % (Manual) 1 % (0-10) 06/26/18 05:36 Platelet Estimate Normal (NORMAL) 06/26/18 05:36 Large Platelets Present 06/26/18 05:36 Anisocytosis (manual) Slight 06/26/18 05:36 Ovalocytes Slight 06/26/18 05:36 pO2 38 mm/Hg (30-55) 06/25/18 15:00 VBG pH 7.37 (7.32-7.43) 06/25/18 15:00 VBG pCO2 48 mmHg (40-60) 06/25/18 15:00 VBG HCO3 25.5 mmol/L 06/25/18 15:00 VBG Total CO2 29.2 mmol/L (22-28) H 06/25/18 15:00 VBG O2 Sat (Calc) 76.2 % (40-65) H 06/25/18 15:00 VBG Base Excess 1.7 mmol/L (0.0-2.0) 06/25/18 15:00 VBG Potassium 3.9 mmol/L (3.6-5.2) 06/25/18 15:00 Sodium 140.0 mmol/L (132-148) 06/25/18 15:00 Chloride 105.0 mmol/L (98-107) 06/25/18 15:00 Glucose 156 mg/dL (65-105) H 06/25/18 15:00 Lactate 3.3 mmol/L (0.7-2.1) H 06/25/18 15:00 FiO2 21.0 % 06/25/18 15:00 Sodium 141 mmol/l (132-148) 06/28/18 04:00 Potassium 3.7 MMOL/L (3.6-5.0) 06/28/18 04:00 Chloride 107 mmol/L (98-107) 06/28/18 04:00 Carbon Dioxide 26 mmol/L (22-30) 06/28/18 04:00 Anion Gap 12 (10-20) 06/28/18 04:00 BUN 33 mg/dl (7-17) H 06/28/18 04:00 Creatinine 1.2 mg/dl (0.7-1.2) 06/28/18 04:00 Est GFR ( Amer) 55 06/28/18 04:00 Est GFR (Non-Af Amer) 45 06/28/18 04:00 POC Glucose (mg/dL) 226 mg/dL (65-110) H 06/28/18 11:46 Random Glucose 189 mg/dL (65-105) H 06/28/18 04:00 Lactic Acid 1.6 MMOL/L (0.7-2.1) 06/28/18 04:20 Calcium 9.2 mg/dL (8.4-10.2) 06/28/18 04:00 Phosphorus 3.0 mg/dl (2.5-4.5) 06/26/18 05:36 Magnesium 1.8 MG/DL (1.6-2.3) 06/26/18 05:36 Total Bilirubin 0.2 mg/dl (0.2-1.3) 06/28/18 04:00 AST 41 U/L (14-36) H D 06/28/18 04:00 ALT 49 U/L (9-52) 06/28/18 04:00 Alkaline Phosphatase 94 U/L (38-126) 06/28/18 04:00 Troponin I < 0.0120 ng/mL (0.00-0.120) 06/25/18 12:15 NT-Pro-B Natriuret Pep 984 pg/ml (0-900) H 06/26/18 05:36 Total Protein 6.2 G/DL (6.3-8.2) L 06/28/18 04:00 Albumin 3.4 g/dL (3.5-5.0) L 06/28/18 04:00 Globulin 2.9 gm/dL (2.2-3.9) 06/28/18 04:00 Albumin/Globulin Ratio 1.2 (1.0-2.1) 06/28/18 04:00 Procalcitonin < 0.05 NG/ML (0.19-0.49) L 06/26/18 05:36 Venous Blood Potassium 3.9 mmol/L (3.6-5.2) 06/25/18 15:00 Discharge Exam - Head Exam Head Exam: NORMAL INSPECTION Discharge Plan - Discharge Medications Prescriptions: Azithromycin [Zithromax] 500 mg PO DAILY #5 tablet diltiaZEM CD [Cardizem CD] 180 mg PO DAILY #30 c24 Prednisone 10 mg PO DAILY #10 tab.ds.pk - Follow Up Plan Condition: FAIR Disposition: HOME/ ROUTINE
[2018-06-28 13:43] VITALS: BP 142/78; PULSE 106; TEMP 97.8; O2SAT 93
== END 2018-06-28 13:45 | disposition home or self-care (01) | DRG 191 ==
LOC: H.ER 11:26 → H.ERHOLD 15:55 → H.TEL 18:19 → OBSVTOIN 06-27 15:53
PROVIDERS: ADMIT Family Medicine; ATTEND Family Medicine
DX: J44.1 Chronic obstructive pulmonary disease with (acute) exacerbation (principal); E87.2 Acidosis; E11.65 Type 2 diabetes mellitus with hyperglycemia; E86.1 Hypovolemia; Z23 Encounter for immunization; F41.9 Anxiety disorder, unspecified; M19.90 Unspecified osteoarthritis, unspecified site; F31.9 Bipolar disorder, unspecified; I10 Essential (primary) hypertension; E78.00 Pure hypercholesterolemia, unspecified; R00.0 Tachycardia, unspecified; D72.829 Elevated white blood cell count, unspecified; T38.0X5A Adverse effect of glucocorticoids and synthetic analogues, initial encounter

== ENCOUNTER 2018-09-01 10:47 | Inpatient (IN) | payer MEDICARE ==
[2018-09-01 10:47] VITALS: BMI 29.9
[2018-09-01] MEDS ORDERED: Albuterol-Ipratrop 3 mg / 0.5 (3 ml) UD IH STA ×2 (11:49→11:50)
[2018-09-01] MEDS ORDERED: Albuterol-Ipratrop 3 mg / 0.5 (3 ml) UD INH STA (11:49)
--- NOTE | 2018-09-01 12:06 | ED PDOC ---
HPI: SOB/CHF/COPD Time Seen by Provider: 09/01/18 11:32 Chief Complaint (Nursing): Respiratory Distress Chief Complaint (Provider): Wheezes History Per: Patient History/Exam Limitations: no limitations Onset/Duration Of Symptoms: Days (1 week) Additional Complaint(s): Pt. with dyspnea, wheezes, cough, congestion for 1 week. No chest pain, leg pain, nausea, vomit. Has leg swelling, but is ongoing for a long time and not new today. No weakness. Past Medical History Vital Signs: Last Vital Signs Temp 98.4 F 09/01/18 10:50 Pulse 124 H 09/01/18 10:50 Resp 18 09/01/18 10:50 BP 165/103 H 09/01/18 10:50 Pulse Ox 96 09/01/18 10:50 - Medical History PMH: Anxiety, Arthritis, Asthma, Bipolar Disorder, COPD, Depression, Diabetes, HTN, Hypercholesterolemia, Kidney Stones (RIGHT), Peripheral Edema Denies: Atrial Fibrillation, HIV, Chronic Kidney Disease Other PMH: tachycardia - Family History Family History: States: Unknown Family Hx - Living Arrangements Living Arrangements: With Family - Immunization History Hx Tetanus Toxoid Vaccination: No Hx Influenza Vaccination: Yes Hx Pneumococcal Vaccination: Yes - Home Medications Home Medications: Ambulatory Orders Medication Instructions Recorded Bepotastine Besilate [Bepreve] 1 drop BOTHEYES DAILY 11/04/15 Montelukast [Singulair] 10 mg PO HS 11/04/15 Rosuvastatin Calcium [Crestor] 20 mg PO HS 11/04/15 Albuterol HFA [Ventolin HFA 90 2 puff IH Q4H PRN 10/16/16 mcg/actuation (8 g)] Aspirin [Ecotrin] 81 mg PO DAILY 10/16/16 Doxazosin [Cardura] 2 mg PO HS 10/16/16 Budesonide/Formoterol Fumarate 1 puff IH Q12H 04/06/17 [Symbicort 160-4.5 Mcg Inhaler] Promethazine DM [Phenergan DM Oral 10 ml PO Q8 PRN 07/05/17 Syrup] Albuterol 0.083% [Albuterol 0.083% 3 ml IH Q6 PRN 10/06/17 Inhal Sugar (2.5 mg/3 ml) UD] Olmesartan/Hydrochlorothiazide 1 tab PO DAILY 10/06/17 [Benicar Hct 40-12.5 mg Tablet] Allopurinol [Zyloprim] 100 mg PO DAILY 06/25/18 Furosemide [Lasix] 20 mg PO DAILY PRN 06/25/18 Linagliptin [Tradjenta] 5 mg PO DAILY 06/25/18 Azithromycin [Zithromax] 500 mg PO DAILY #5 tablet 06/28/18 Prednisone 10 mg PO DAILY #10 tab.ds.pk 06/28/18 diltiaZEM CD [Cardizem CD] 180 mg PO DAILY #30 c24 06/28/18 - Allergies Allergies/Adverse Reactions: Allergies Allergy/AdvReac Type Severity Reaction Status Date / Time POLLEN Allergy Intermediate ITCHING Uncoded 07/05/17 13:25 Review of Systems ROS Statement: Except As Marked, All Systems Reviewed And Found Negative ENT: Positive for: Nose Congestion Respiratory: Positive for: Shortness of Breath, Wheezing Physical Exam - Reviewed Nursing Documentation Reviewed: Yes Vital Signs Reviewed: Yes - Physical Exam Appears: Positive for: Non-toxic, Uncomfortable Head Exam: Positive for: ATRAUMATIC, NORMAL INSPECTION, NORMOCEPHALIC Skin: Positive for: Normal Color, Warm, DRY Eye Exam: Positive for: EOMI, Normal appearance, PERRL ENT: Positive for: Nasal Congestion. Negative for: Pharyngeal Erythema, Tonsillar Exudate Neck: Positive for: Normal, Painless ROM, Supple Cardiovascular/Chest: Positive for: Tachycardia Respiratory: Positive for: Decreased Breath Sounds, Wheezing (b/l) Gastrointestinal/Abdominal: Positive for: Normal Exam, Soft. Negative for: Tenderness Back: Positive for: Normal Inspection. Negative for: L CVA Tenderness, R CVA Tenderness Extremity: Positive for: Normal ROM, Pedal Edema (b/l trace). Negative for: Tenderness Neurologic/Psych: Positive for: Alert, Oriented - Laboratory Results Result Diagrams: 09/01/18 12:05 09/01/18 12:05 Interpretation Of Abn Labs: no acute - ECG ECG: Positive for: Interpreted By Me, Viewed By Me ECG Rhythm: Positive for: Normal QRS, Normal ST Segment, Sinus Rhythm O2 Sat by Pulse Oximetry: 96 Pulse Ox Interpretation: Normal - Radiology X-Ray: Read By Radiologist X-Ray Interpretation: No Acute Disease - Progress ED Course And Treament: 1416: Stable. AAOx3. Pain free. Spoke with Dr. Hawk. Will admit tele obs. Disposition - Clinical Impression Clinical Impression: COPD exacerbation - Patient ED Disposition Is Patient to be Admitted: Yes Counseled Patient/Family Regarding: Studies Performed, Diagnosis - Disposition Disposition: Routine/Home Disposition Time: 13:18 Condition: FAIR - Pt Status Changed To: Hospital Disposition Of: Observation - POA Present On Arrival: None
[2018-09-01] MEDS ORDERED: Albuterol-Ipratrop 3 mg / 0.5 (3 ml) UD ONE (12:07)
[2018-09-01 12:10] LABS: BASO # 0.1 K/uL (0.0-0.2); BASO % 1.2 % (0.0-2.0); EOS # 0.8 K/uL (0.0-0.7); EOS % 8.2 % (0.0-4.0); HEMOGLOBIN 11.3 g/dL (12.0-16.0); LYMPH # 0.9 K/uL (1.0-4.3); LYMPH % 10.2 % (20.0-40.0); MEAN CELL VOLUME 93.8 fl (81.0-99.0); MEAN CORPUSCULAR HEMOGLOBIN 30.4 pg (27.0-31.0); MEAN CORPUSCULAR HGB CONC 32.4 g/dL (33.0-37.0); MONO # 0.7 K/uL (0.0-0.8); MONO % 7.6 % (0.0-10.0); NEUT # 6.8 K/uL (1.8-7.0); NEUT % 72.8 % (50.0-75.0); NRBC % 0.1 % (0.0-0.0); RBC 3.72 Mil/uL (3.80-5.20); RED CELL DISTRIBUTION WIDTH 14.5 % (11.5-14.5); WHITE BLOOD COUNT 9.3 K/uL (4.8-10.8)
[2018-09-01 12:15] LABS: ABG ALLEN TEST YES; ARTERIAL BLOOD GAS HCO3 28.3 mmol/L (21-28); ARTERIAL BLOOD GAS O2 SAT 100.1 % (95-98); ARTERIAL BLOOD GAS PCO2 47 mm/Hg (35-45); ARTERIAL BLOOD GAS PH 7.41 (7.35-7.45); ARTERIAL BLOOD GAS PO2 104 mm/Hg (80-100); ARTERIAL BLOOD GAS TCO2 31.2 mmol/L (22-28)
[2018-09-01 12:23] LABS: ALBUMIN 4.1 g/dL (3.5-5.0); BLOOD UREA NITROGEN 19 mg/dl (7-17); CALCIUM 9.4 mg/dL (8.4-10.2); GFR NON-AFRICAN AMERICAN 41
[2018-09-01 12:24] LABS: ALB/GLOB RATIO 1.3 (1.0-2.1); ALT/SGPT 42 U/L (9-52); AST/SGOT 34 U/L (14-36); PROTHROMBIN TIME 10.8 Seconds (9.8-13.1)
[2018-09-01 12:32] LABS: B-TYPE NATRIURETIC PEPTIDE 68.1 pg/ml (0-900)
--- NOTE | 2018-09-01 12:34 | RAD ---
Date of service: 09/01/2018 HISTORY: Sepsis Patient COMPARISON: 06/25/2008 FINDINGS: LUNGS: No active pulmonary disease. PLEURA: No significant pleural effusion identified, no pneumothorax apparent. CARDIOVASCULAR: There is absence of aortic atherosclerotic calcification on x-ray. Normal cardiac size. No pulmonary vascular congestion. OSSEOUS STRUCTURES: Thoracic spondylosis. Right shoulder arthrosis. VISUALIZED UPPER ABDOMEN: The right hemidiaphragm is asymmetrically elevated as before. OTHER FINDINGS: None. IMPRESSION: No active disease. No interval pathology noted.
[2018-09-01 15:50] LABS: SQUAMOUS EPITHIAL 1 /hpf (0-5); URINE BILIRUBIN NEGATIVE (NEGATIVE); URINE BLOOD NEGATIVE (NEGATIVE); URINE CLARITY SLIGHTY-CLOUDY (Clear); URINE COLOR YELLOW (YELLOW); URINE GLUCOSE (UA) NEG (NEGATIVE); URINE HYALINE CAST 0-2 /hpf (0-2); URINE LEUKOCYTE ESTERASE NEG Leu/uL (Negative); URINE PROTEIN 100 mg/dL (NEGATIVE); URINE UROBILINOGEN 0.2-1.0 mg/dL (0.2-1.0)
[2018-09-01] MEDS ORDERED: Patient's Own Med (Budesonide/Formoterol Fumarate [Symbicort 160-4.5 Mcg Inhaler] 1 PUFF) IH SCH (17:00)
[2018-09-01] MEDS ORDERED: Dextrose 50% SYRINGE Inj (50 ml) IV PRN (17:10)
[2018-09-01] MEDS ORDERED: Glucagon Recombinant 1 mg Inj IM PRN (17:10)
--- NOTE | 2018-09-01 18:59 | US ---
Left lower extremity ultrasound. Indication:unilateral swelling, r/u dvt Technique: Duplex ultrasound evaluation of the left lower extremity Comparison: Bilateral lower extremity ultrasound performed 10/18/16 Findings: There is normal flow, compressibility, and augmentation of the left common femoral, femoral, and popliteal veins. The left posterior tibial veins appear patent. Impression: No evidence of deep venous thrombosis in the left lower extremity.
--- NOTE | 2018-09-01 20:46 | CARD ---
APPROVED REPORT Date of service: 09/01/2018 EKG Measurement Heart [id number] <Conclusion> Sinus tachycardia Otherwise normal ECG
[2018-09-01] MEDS: Promethazine DM 6.25 mg-15 mg/5 ml Syrup PO PRN (21:30)
[2018-09-02] MEDS: Albuterol-Ipratrop 3 mg / 0.5 (3 ml) UD INH SCH ×5 (00:15→19:22)
[2018-09-02 06:29] LABS: BASO % 0.1 % (0.0-2.0); HEMOGLOBIN 11.8 g/dL (12.0-16.0); LYMPH # 0.7 K/uL (1.0-4.3); LYMPH % 5.9 % (20.0-40.0); MEAN CELL VOLUME 90.7 fl (81.0-99.0); MEAN CORPUSCULAR HEMOGLOBIN 29.9 pg (27.0-31.0); MEAN PLATELET VOLUME 9.5 fl (7.2-11.7); MONO # 0.1 K/uL (0.0-0.8); MONO % 0.8 % (0.0-10.0); NEUT # 10.7 K/uL (1.8-7.0); NEUT % 93.2 % (50.0-75.0); PLATELET COUNT 246 K/uL (130-400); RBC 3.93 Mil/uL (3.80-5.20); RED CELL DISTRIBUTION WIDTH 14.2 % (11.5-14.5); WHITE BLOOD COUNT 11.5 K/uL (4.8-10.8)
[2018-09-02 06:46] LABS: ALB/GLOB RATIO 1.3 (1.0-2.1); ALBUMIN 4.3 g/dL (3.5-5.0); CALCIUM 9.9 mg/dL (8.4-10.2)
[2018-09-02] MEDS: Fluticasone-Salmeterol 250-50mcg Diskus IH SCH ×2 (08:55→21:54)
[2018-09-02] MEDS: diltiaZEM 120 mg/24 Hours CD Cap PO SCH (08:56)
[2018-09-02] MEDS: Promethazine DM 6.25 mg-15 mg/5 ml Syrup PO PRN (08:58)
[2018-09-02] MEDS ORDERED: DILTIAZEM HCL 120 MG PO SCH (09:00)
[2018-09-02] MEDS ORDERED: Enoxaparin 40 mg Syringe SC SCH (09:00)
[2018-09-02] MEDS ORDERED: guaiFENesin-Codeine 100-10mg/5ml Syrup (5 ml) UD PO PRN (11:20)
[2018-09-02 12:01] LABS: BANDS 2 % (0-2); LYMPHOCYTE 3 % (20-50); MONOCYTE 3 % (0-10); NEUTROPHIL 90 % (42-75); REACTIVE LYMPHOCYTES 2 % (0-0); TOTAL CELLS COUNTED 100
[2018-09-02 12:04] LABS: HYPOCHROMIC SLIGHT; PLATELET ESTIMATE NORMAL (NORMAL)
--- NOTE | 2018-09-02 13:39 | CP.PCM.HP ---
History of Present Illness - History of Present Illness History of Present Illness: Pt is a 63 y/o female with hx of Asthma/COPD presented to ED yesterday with complaints of cough/congestion and worsening sob x1 week with no improvement after using breathing treatments. Denies fevers or chills. Additionally, reports BL LE edema (L>R) since reducing her Lasix dosage to once daily. She reports this was done by her PMD as it was causing her to urinate very frequently. Otherwise denies chest pain, worsening orthopnea or exertional dyspnea from baseline, prolonged immobility or recent travel, dysuria, n/v. ROS: 12 point negative PMD: Dr. Andrew SurHx: cataract surgery FMHx: father at 57 from [place], DM; mother at 92 from Alzheimer and dementia complications; older brother at 43 s/p heart transplant complications-had heart failure secondary to smoking and drinking, older sister has type 2 DM, younger brother has IDDM type 1. SocHx: denies smoking, EToH, and drugs Medications: see medication reconciliation Allergies: NKDA Present on Admission - Present on Admission Any Indicators Present on Admission: No Past Patient History - Infectious Disease Hx of Infectious Diseases: None - Past Medical History & Family History Past Medical History?: Yes - Past Social History Smoking Status: Never Smoked - CARDIAC Hx Cardiac Disorders: Yes Hx Hypertension: Yes Hx Peripheral Edema: Yes - PULMONARY Hx Respiratory Disorders: Yes Hx Asthma: Yes Hx Chronic Obstructive Pulmonary Disease (COPD): Yes - NEUROLOGICAL Hx Neurological Disorder: No - HEENT Hx HEENT Problems: No Hx Cataracts: Yes (sx) - RENAL Hx Chronic Kidney Disease: No - ENDOCRINE/METABOLIC Hx Endocrine Disorders: Yes Hx Diabetes Mellitus Type 2: Yes - HEMATOLOGICAL/ONCOLOGICAL Hx Human Immunodeficiency Virus (HIV): No - INTEGUMENTARY Hx Dermatological Problems: No - MUSCULOSKELETAL/RHEUMATOLOGICAL Hx Arthritis: Yes Hx Falls: No - GASTROINTESTINAL Hx Gastrointestinal Disorders: No - GENITOURINARY/GYNECOLOGICAL Hx Genitourinary Disorders: No - PSYCHIATRIC Hx Anxiety: Yes Hx Bipolar Disorder: Yes Hx Depression: Yes Hx Substance Use: No - SURGICAL HISTORY Hx Surgeries: Yes Hx Cataract Extraction: Yes (BILATERAL) Other/Comment: CYSTO WITH STENTS X2 - ANESTHESIA Hx Anesthesia: Yes Hx Anesthesia Reactions: No Hx Malignant Hyperthermia: No Meds Allergies/Adverse Reactions: Allergies Allergy/AdvReac Type Severity Reaction Status Date / Time POLLEN Allergy Intermediate ITCHING Uncoded 07/05/17 13:25 Physical Exam - Constitutional Appears: No Acute Distress - Head Exam Head Exam: NORMAL INSPECTION - Eye Exam Eye Exam: Normal appearance - ENT Exam ENT Exam: Mucous Membranes Moist - Neck Exam Neck exam: Positive for: Full Rom. Negative for: Meningismus - Respiratory Exam Respiratory Exam: Rhonchi (clears with cough), Wheezes (scattered inspiratory and expiratory wheezing) - Cardiovascular Exam Cardiovascular Exam: Tachycardia, +S1, +S2. absent: Irregular Rhythm, Systolic Murmur - GI/Abdominal Exam GI & Abdominal Exam: Normal Bowel Sounds, Soft. absent: Tenderness - Extremities Exam Extremities exam: Positive for: normal capillary refill, pedal edema (BL, Left>r ight, +1 pitting up to knees, no skin changes or ulcers), pedal pulses present. Negative for: calf tenderness (homans negative) - Neurological Exam Neurological exam: Alert, Oriented x3 - Psychiatric Exam Psychiatric exam: Normal Affect - Skin Skin Exam: Normal Color Results - Vital Signs Recent Vital Signs: Last Vital Signs Temp 98 F 09/02/18 08:23 Pulse 125 H 09/02/18 08:23 Resp 18 09/02/18 08:23 BP 117/74 09/02/18 08:57 Pulse Ox 95 09/02/18 08:23 - Labs Result Diagrams: 09/02/18 04:15 09/02/18 04:15 Labs: Laboratory Results - last 24 hr 09/01/18 09/01/18 09/01/18 15:41 18:23 18:38 WBC RBC Hgb Hct MCV MCH MCHC RDW Plt Count MPV Neut % (Auto) Lymph % (Auto) [place] % (Auto) Eos % (Auto) Baso % (Auto) Neut # (Auto) Lymph # (Auto) [place] # (Auto) Eos # (Auto) Baso # (Auto) Neutrophils % (Manual) Band Neutrophils % Lymphocytes % (Manual) Reactive Lymphs % Monocytes % (Manual) Platelet Estimate Hypochromasia (manual) Sodium Potassium Chloride Carbon Dioxide Anion Gap BUN Creatinine Est GFR ( Amer) Est GFR (Non-Af Amer) POC Glucose (mg/dL) 224 H Random Glucose Calcium Phosphorus Magnesium Total Bilirubin AST ALT Alkaline Phosphatase Total Protein Albumin Globulin Albumin/Globulin Ratio Urine Color Yellow Urine Clarity Slighty-cloudy Urine pH 7.0 Ur Specific [place] 1.025 Urine Protein 100 Urine Glucose (UA) Neg Urine Ketones Negative Urine Blood Negative Urine Nitrate Negative Urine Bilirubin Negative Urine Urobilinogen 0.2-1.0 Ur Leukocyte Esterase Neg Urine RBC (Auto) 3 Urine Microscopic WBC 1 Ur Squamous Epith Cells 1 Hyaline Casts 0-2 Influenza Typ A,B (EIA) Negative for flu a/b 09/01/18 09/02/18 09/02/18 21:32 04:15 04:15 WBC 11.5 H RBC 3.93 Hgb 11.8 L Hct 35.6 MCV 90.7 D MCH 29.9 MCHC 33.0 RDW 14.2 Plt Count 246 MPV 9.5 Neut % (Auto) 93.2 H Lymph % (Auto) 5.9 L [place] % (Auto) 0.8 Eos % (Auto) 0.0 Baso % (Auto) 0.1 Neut # (Auto) 10.7 H Lymph # (Auto) 0.7 L [place] # (Auto) 0.1 Eos # (Auto) 0.0 Baso # (Auto) 0.0 Neutrophils % (Manual) 90 H Band Neutrophils % 2 Lymphocytes % (Manual) 3 L Reactive Lymphs % 2 H Monocytes % (Manual) 3 Platelet Estimate Normal Hypochromasia (manual) Slight Sodium 142 Potassium 4.2 Chloride 105 Carbon Dioxide 27 Anion Gap 14 BUN 18 H Creatinine 1.4 H Est GFR ( Amer) 46 Est GFR (Non-Af Amer) 38 POC Glucose (mg/dL) 181 H Random Glucose 168 H Calcium 9.9 Phosphorus 4.0 Magnesium 1.9 Total Bilirubin 0.4 AST 32 ALT 42 Alkaline Phosphatase 94 Total Protein 7.4 Albumin 4.3 Globulin 3.2 Albumin/Globulin Ratio 1.3 Urine Color Urine Clarity Urine pH Ur Specific [place] Urine Protein Urine Glucose (UA) Urine Ketones Urine Blood Urine Nitrate Urine Bilirubin Urine Urobilinogen Ur Leukocyte Esterase Urine RBC (Auto) Urine Microscopic WBC Ur Squamous Epith Cells Hyaline Casts Influenza Typ A,B (EIA) 09/02/18 05:07 WBC RBC Hgb Hct MCV MCH MCHC RDW Plt Count MPV Neut % (Auto) Lymph % (Auto) [place] % (Auto) Eos % (Auto) Baso % (Auto) Neut # (Auto) Lymph # (Auto) [place] # (Auto) Eos # (Auto) Baso # (Auto) Neutrophils % (Manual) Band Neutrophils % Lymphocytes % (Manual) Reactive Lymphs % Monocytes % (Manual) Platelet Estimate Hypochromasia (manual) Sodium Potassium Chloride Carbon Dioxide Anion Gap BUN Creatinine Est GFR ( Amer) Est GFR (Non-Af Amer) POC Glucose (mg/dL) 161 H Random Glucose Calcium Phosphorus Magnesium Total Bilirubin AST ALT Alkaline Phosphatase Total Protein Albumin Globulin Albumin/Globulin Ratio Urine Color Urine Clarity Urine pH Ur Specific [place] Urine Protein Urine Glucose (UA) Urine Ketones Urine Blood Urine Nitrate Urine Bilirubin Urine Urobilinogen Ur Leukocyte Esterase Urine RBC (Auto) Urine Microscopic WBC Ur Squamous Epith Cells Hyaline Casts Influenza Typ A,B (EIA) Assessment & Plan - Assessment and Plan (Free Text) Assessment: 63 yo female w/ PMH copd, HTN, DM type 2, anxiety, bi-polar disorder, and depression admitted for COPD exacerbation. #COPD exas -Cxray no acute infiltrates, afebrile, procalcitonin negative-- no indication for antibiotics at this point. Likely viral -EKG wnl, negative troponins -C/W scheduled nebulizer treatments, spaced out to q6 -IV Solumedrol 60mg q12 -Cough suppressant -Monitor respiratory status and vitals -Clinically improved today from yesterday but reports she still feels SOB -C.W home meds #Bilateral edema -Likely chronic venous insufficiency -ProBNP normal -Received 40mg Lasix po yesterday -Venous duplex negative for DVT -Jevon Stockings ordered #LAVON on CKD -Mild, likely prerenal -Lasix and ARB held -If worsens or no improvement, will start gentle hydration #DVT ppx -Heparin 5000 Sq C/W home meds D/W Dr. Hawk
[2018-09-02] MEDS ORDERED: methylPREDNISolone 60 MG in Sodium Chloride 0.9% 50 ML IVPB SCH (21:00)
[2018-09-03] MEDS: Albuterol-Ipratrop 3 mg / 0.5 (3 ml) UD INH SCH ×4 (01:13→19:07)
[2018-09-03 05:49] LABS: BASO % 0.1 % (0.0-2.0); HEMOGLOBIN 11.2 g/dL (12.0-16.0); LYMPH # 0.5 K/uL (1.0-4.3); LYMPH % 3.2 % (20.0-40.0); MEAN CELL VOLUME 91.9 fl (81.0-99.0); MEAN CORPUSCULAR HEMOGLOBIN 29.6 pg (27.0-31.0); MEAN CORPUSCULAR HGB CONC 32.2 g/dL (33.0-37.0); MEAN PLATELET VOLUME 9.5 fl (7.2-11.7); MONO # 0.2 K/uL (0.0-0.8); NEUT # 15.5 K/uL (1.8-7.0); NEUT % 95.7 % (50.0-75.0); PLATELET COUNT 226 K/uL (130-400); RBC 3.77 Mil/uL (3.80-5.20); RED CELL DISTRIBUTION WIDTH 14.1 % (11.5-14.5); WHITE BLOOD COUNT 16.2 K/uL (4.8-10.8)
[2018-09-03 06:10] LABS: ALB/GLOB RATIO 1.4 (1.0-2.1); CALCIUM 9.6 mg/dL (8.4-10.2)
[2018-09-03 08:12] LABS: LYMPHOCYTE 6 % (20-50); MONOCYTE 2 % (0-10); NEUTROPHIL 92 % (42-75); PLATELET ESTIMATE NORMAL (NORMAL); TOTAL CELLS COUNTED 100
[2018-09-03 08:13] LABS: ANISOCYTOSIS SLIGHT; OVALOCYTES SLIGHT
[2018-09-03] MEDS: Fluticasone-Salmeterol 250-50mcg Diskus IH SCH ×2 (08:47→21:09)
[2018-09-03] MEDS: Promethazine/Cod 6.25mg-10mg/5ml Syr UD PO PRN ×2 (13:21→21:12)
[2018-09-03] MEDS: diltiaZEM 120 mg/24 Hours CD Cap PO SCH (13:22)
--- NOTE | 2018-09-03 15:49 | CP.PCM.PN ---
Subjective - Date & Time of Evaluation Date of Evaluation: 09/03/18 Time of Evaluation: 11:00 - Subjective Subjective: patient seen and examined at bedside. still with cough improving feels need o2 Objective - Vital Signs/Intake and Output Vital Signs (last 24 hours): Temp Pulse Resp BP Pulse Ox 97.9 F 106 H 20 130/79 96 09/03/18 05:11 09/03/18 10:30 09/03/18 05:11 09/03/18 05:11 09/03/18 10:30 - Medications Medications: Current Medications Acetaminophen (Tylenol 325mg Tab) 650 mg PO Q6 PRN PRN Reason: Pain, Mild (1-3) Albuterol/Ipratropium (Duoneb 3 Mg/0.5 Mg (3 Ml) Ud) 3 ml INH RQ6 [facility] Last Admin: 09/03/18 13:39 Dose: 3 ml Aspirin (Ecotrin) 81 mg PO DAILY [facility] Last Admin: 09/03/18 13:23 Dose: 81 mg Atorvastatin Calcium (Lipitor) 40 mg PO HS [facility] Last Admin: 09/02/18 21:54 Dose: 40 mg Dextrose (Dextrose 50% Inj) 0 ml IV STAT PRN; Protocol PRN Reason: Hypoglycemia Protocol Dextrose (Glutose 15) 0 gm PO ONCE PRN; Protocol PRN Reason: Hypoglycemia Protocol Diltiazem HCl (Cardizem Cd) 120 mg PO DAILY [facility] Last Admin: 09/03/18 13:22 Dose: 120 mg Doxazosin Mesylate (Cardura) 2 mg PO HS [facility] Last Admin: 09/02/18 21:54 Dose: 2 mg Furosemide (Lasix) 20 mg PO DAILY [facility] Glucagon (Glucagen Diagnostic Kit) 0 mg IM STAT PRN; Protocol PRN Reason: Hypoglycemia Protocol Heparin Sodium (Porcine) (Heparin) 5,000 units SC Q12 [facility]; Protocol Hydralazine HCl (Apresoline) 25 mg PO Q8 PRN PRN Reason: Blood pressure >150 Last Admin: 09/01/18 21:40 Dose: 25 mg Losartan Potassium (Cozaar) 100 mg PO DAILY [facility] Last Admin: 09/03/18 13:23 Dose: 100 mg Methylprednisolone (Solu-Medrol) 60 mg IV Q12 [facility] Last Admin: 09/03/18 08:51 Dose: 60 mg Montelukast Sodium (Singulair) 10 mg PO HS [facility] Last Admin: 09/02/18 21:54 Dose: 10 mg Promethazine HCl/Codeine (Phenergan/Codeine Oral Syrup) 10 ml PO Q6 PRN PRN Reason: Cough Last Admin: 09/03/18 13:21 Dose: 10 ml Fluticasone/Salmeterol (Advair Diskus 250/50) 1 puff IH Q12 [facility] Last Admin: 09/03/18 08:47 Dose: 1 puff Sitagliptin Phosphate (Januvia) 50 mg PO DAILY [facility] Last Admin: 09/03/18 08:48 Dose: 50 mg - Labs Labs: 09/03/18 04:25 09/03/18 04:25 PT 10.8 Seconds (9.8-13.1) 09/01/18 12:05 INR 1.0 09/01/18 12:05 APTT 25.0 Seconds (25.6-37.1) L 09/01/18 12:05 - Constitutional Appears: Non-toxic - Head Exam Head Exam: NORMAL INSPECTION - Respiratory Exam Respiratory Exam: Wheezes - Cardiovascular Exam Cardiovascular Exam: +S1, +S2 - Neurological Exam Neurological Exam: Alert, Awake - Psychiatric Exam Psychiatric exam: Normal Affect, Normal Mood - Skin Skin Exam: Normal Color, Warm Assessment and Plan - Assessment and Plan (Free Text) Assessment: dx copd exacerbation plan c/w iv steroids, trial o2 off ret pt dispo planning for tomorrow
[2018-09-04] MEDS: Albuterol-Ipratrop 3 mg / 0.5 (3 ml) UD INH SCH ×3 (02:59→13:00)
[2018-09-04] MEDS: Fluticasone-Salmeterol 250-50mcg Diskus IH SCH (09:30)
[2018-09-04] MEDS: diltiaZEM 120 mg/24 Hours CD Cap PO SCH (09:34)
[2018-09-04 15:54] VITALS: BP 139/79; PULSE 122; RESP 20; TEMP 97.3; O2SAT 94
[2018-09-04] MEDS ORDERED: Albuterol HFA 90 mcg/actuation (8 g) IH PRN (18:04)
[2018-09-05] MEDS ORDERED: BEPOTASTINE BESILATE BOTHEYES SCH (09:00)
--- NOTE | 2018-09-22 10:07 | PQF ---
PROVIDER RESPONSE TEXT: Provider was unable to determine a response for this query. REVIEWER QUERY TEXT: Kidney Disease, Chronic CKD Stage 2 ( TWO ) part query 1) LAVON ruled in or ruled out. Creatinine 1.3 -> 1.4 -> 1.4. 2) Stage of CKD: GFR 41-> 38 -> 38 Chronic Kidney Disease (CKD) is documented in the Medical Record. Please specify the disease stage ( includes probable or suspected) Such as: -- Chronic kidney disease Stage 1 -- Chronic kidney disease Stage 2 -- Chronic kidney disease Stage 3 -- Chronic kidney disease Stage 4 -- Chronic kidney disease Stage 5 -- Chronic kidney disease Stage 5, requiring dialysis -- End Stage Renal Disease -- Other, please specify Stages are defined by the [employer] as follows: CKD Stage I GFR >= 90 ml / min per 1.73 m2 and persistent albuminuria CKD Stage 2 GFR between 60 and 89 with persistent albuminuria CKD Stage 3 GFR between 30 and 59 CKD Stage 4 GFR between 15 and 29 CKD Stage 5 GFR between <15 or End Stage Renal Disease The patient's Clinical Indicators include: -Mild, likely prerenal -Lasix and ARB held -If worsens or no improvement, will start gentle hydration Query created by: Vinita Ruiz on 09/06/2018 7:56 AM Electronically signed by: Sam Hawk 09/22/2018 10:02 AM
--- NOTE | 2018-09-22 10:07 | PQF ---
PROVIDER RESPONSE TEXT: Provider was unable to determine a response for this query. REVIEWER QUERY TEXT: Asthma Specificity and Type Please clarify the TYPE of Asthma With or Without Exacerbation. Documentation of Asthma/COPD Asthma is documented in the Medical Record. Please specify the type and severity of asthma and indic ate if this is associated with exacerbation or status asthmaticus. Such as: -- Mild intermittent -- Mild persistent -- Moderate persistent -- Severe persistent -- Exercise induced bronchospasm -- Cough variant asthma -- Other, please specify The patient's Clinical Indicators include: C/O cough/congestion and worsening sob x1 week with no improvement after using breathing treatments. + wheezing CXR: No active disease Rx: Solumedrol, Duonebs, Advair Diskus, Singulair, Ventolin HFA Query created by: Vinita Ruiz on 09/06/2018 7:53 AM Electronically signed by: Sam Hawk 09/22/2018 10:02 AM
== END 2018-09-04 18:35 | disposition home or self-care (01) | DRG 191 ==
LOC: H.ER 10:47 → H.ERHOLD 14:18 → H.TEL 19:02 → OBSVTOIN 09-03 12:14
PROVIDERS: ADMIT Family Medicine; ATTEND Family Medicine
PROC: 3E0F73Z Introduction of Anti-inflammatory into Respiratory Tract, Via Natural or Artificial Opening (ICD-10-PCS; principal; 2018-09-03)
DX: J44.1 Chronic obstructive pulmonary disease with (acute) exacerbation (principal); N17.9 Acute kidney failure, unspecified; I87.2 Venous insufficiency (chronic) (peripheral); E11.22 Type 2 diabetes mellitus with diabetic chronic kidney disease; I12.9 Hypertensive chronic kidney disease with stage 1 through stage 4 chronic kidney disease, or unspecified chronic kidney disease; N18.9 Chronic kidney disease, unspecified; F31.9 Bipolar disorder, unspecified; E78.00 Pure hypercholesterolemia, unspecified; F41.9 Anxiety disorder, unspecified; M19.90 Unspecified osteoarthritis, unspecified site; Z79.51 Long term (current) use of inhaled steroids; Z79.84 Long term (current) use of oral hypoglycemic drugs; Z79.82 Long term (current) use of aspirin; Z87.442 Personal history of urinary calculi

== ENCOUNTER 2018-12-10 10:36 | Inpatient (IN) | payer MEDICARE ==
[2018-12-10 10:40] VITALS: BMI 34.3
[2018-12-10] MEDS ORDERED: Albuterol-Ipratrop 3 mg / 0.5 (3 ml) UD INH STA (10:54)
[2018-12-10] MEDS ORDERED: Albuterol-Ipratrop 3 mg / 0.5 (3 ml) UD IH STA ×2 (10:54→10:55)
--- NOTE | 2018-12-10 11:00 | ED PDOC ---
HPI: SOB/CHF/COPD Time Seen by Provider: 12/10/18 10:43 Chief Complaint (Provider): Dyspnea History Per: Patient History/Exam Limitations: no limitations Onset/Duration Of Symptoms: Days (few days) Additional Complaint(s): Pt. with dyspnea like her asthma for few days. No chest pain, weakness, dizziness, headaches, numbness, tingles, fever. Has a cough, no phlegm. No back pain. No abd pain. Past Medical History Reviewed: Nursing Documentation, Vital Signs Vital Signs: Last Vital Signs Temp 97.6 F 12/10/18 10:40 Pulse 129 H 12/10/18 10:40 Resp 17 12/10/18 10:40 BP 147/100 H 12/10/18 10:40 Pulse Ox 96 12/10/18 10:40 - Medical History PMH: Anxiety, Arthritis, Asthma, Bipolar Disorder, COPD, Depression, Diabetes, HTN, Hypercholesterolemia, Kidney Stones (RIGHT), Peripheral Edema Denies: Atrial Fibrillation, HIV, Chronic Kidney Disease - Family History Family History: States: Unknown Family Hx - Immunization History Hx Tetanus Toxoid Vaccination: No Hx Influenza Vaccination: Yes Hx Pneumococcal Vaccination: Yes - Home Medications Home Medications: Ambulatory Orders Medication Instructions Recorded Bepotastine Besilate [Bepreve] 1 drop BOTHEYES DAILY 11/04/15 Montelukast [Singulair] 10 mg PO HS 11/04/15 Rosuvastatin Calcium [Crestor] 20 mg PO HS 11/04/15 Albuterol HFA [Ventolin HFA 90 2 puff IH Q4H PRN 10/16/16 mcg/actuation (8 g)] Aspirin [Ecotrin] 81 mg PO DAILY 10/16/16 Doxazosin [Cardura] 2 mg PO HS 10/16/16 Budesonide/Formoterol Fumarate 1 puff IH Q12H 04/06/17 [Symbicort 160-4.5 Mcg Inhaler] Promethazine DM [Phenergan DM Oral 10 ml PO Q8 PRN 07/05/17 Syrup] Albuterol 0.083% [Albuterol 0.083% 3 ml IH Q6 PRN 10/06/17 Inhal Sugar (2.5 mg/3 ml) UD] Allopurinol [Zyloprim] 100 mg PO DAILY 06/25/18 Furosemide [Lasix] 20 mg PO DAILY PRN 06/25/18 Linagliptin [Tradjenta] 5 mg PO DAILY 06/25/18 Diltiazem HCl [Diltiazem 24Hr ER] 120 mg PO DAILY 09/01/18 Olmesartan Medoxomil [Benicar] 40 mg PO DAILY 09/01/18 hydrALAZINE [Apresoline] 25 mg PO Q8 PRN 09/01/18 Methylprednisolone [Medrol Dose 4 mg PO DAILY #21 mg 09/03/18 Pack (21 tabs)] - Allergies Allergies/Adverse Reactions: Allergies Allergy/AdvReac Type Severity Reaction Status Date / Time POLLEN Allergy Intermediate ITCHING Uncoded 07/05/17 13:25 Review of Systems ROS Statement: Except As Marked, All Systems Reviewed And Found Negative Respiratory: Positive for: Shortness of Breath, Wheezing Physical Exam - Reviewed Nursing Documentation Reviewed: Yes Vital Signs Reviewed: Yes - Physical Exam Appears: Positive for: Uncomfortable Head Exam: Positive for: ATRAUMATIC, NORMAL INSPECTION, NORMOCEPHALIC Skin: Positive for: Normal Color, Warm, DRY Eye Exam: Positive for: EOMI, Normal appearance, PERRL ENT: Positive for: Normal ENT Inspection Neck: Positive for: Normal, Painless ROM Cardiovascular/Chest: Positive for: Regular Rate, Rhythm Respiratory: Positive for: Wheezing (b/l). Negative for: Accessory Muscle Use Gastrointestinal/Abdominal: Positive for: Normal Exam, Soft Back: Positive for: Normal Inspection. Negative for: L CVA Tenderness, R CVA Tenderness Extremity: Positive for: Normal ROM. Negative for: Tenderness, Pedal Edema Neurological/Psych: Positive for: Awake, Alert, Normal Tone - Laboratory Results Result Diagrams: 12/10/18 11:15 12/10/18 11:15 Interpretation Of Abn Labs: no acute - ECG ECG: Positive for: Interpreted By Me, Viewed By Me ECG Rhythm: Positive for: Normal QRS, Normal ST Segment, Sinus Tachycardia (mild) O2 Sat by Pulse Oximetry: 96 - Progress ED Course And Treament: 1300: AAOx3. Pain free. Spoke with Dr. Andrew. Will admit. - Critical Care Total Time (In Min): 30 Documented Critical Care: Time excludes all time spent performint seperately billable procedures Disposition - Clinical Impression Clinical Impression: COPD exacerbation - Disposition Disposition Time: 11:11 Condition: FAIR
[2018-12-10] MEDS ORDERED: Albuterol-Ipratrop 3 mg / 0.5 (3 ml) UD ONE (11:08)
[2018-12-10 11:22] LABS: BASO # 0.1 K/uL (0.0-0.2); EOS # 0.5 K/uL (0.0-0.7); EOS % 6.3 % (0.0-4.0); HEMOGLOBIN 12.4 g/dL (12.0-16.0); LYMPH # 0.9 K/uL (1.0-4.3); LYMPH % 10.2 % (20.0-40.0); MEAN CORPUSCULAR HEMOGLOBIN 29.9 pg (27.0-31.0); MEAN CORPUSCULAR HGB CONC 33.6 g/dL (33.0-37.0); MONO # 0.5 K/uL (0.0-0.8); MONO % 5.4 % (0.0-10.0); NEUT # 6.6 K/uL (1.8-7.0); NEUT % 77.1 % (50.0-75.0); NRBC % 0.1 % (0.0-0.0); RBC 4.14 Mil/uL (3.80-5.20); RED CELL DISTRIBUTION WIDTH 14.1 % (11.5-14.5); WHITE BLOOD COUNT 8.5 K/uL (4.8-10.8)
[2018-12-10 11:26] LABS: ABG ALLEN TEST YES; ARTERIAL BLOOD GAS HCO3 28.6 mmol/L (21-28); ARTERIAL BLOOD GAS O2 SAT 99.9 % (95-98); ARTERIAL BLOOD GAS PCO2 36 mm/Hg (35-45); ARTERIAL BLOOD GAS PO2 76 mm/Hg (80-100); ARTERIAL BLOOD GAS TCO2 29.2 mmol/L (22-28)
[2018-12-10 11:33] LABS: ALB/GLOB RATIO 1.2 (1.0-2.1); ALBUMIN 3.8 g/dL (3.5-5.0); ALT/SGPT 31 U/L (9-52); AST/SGOT 34 U/L (14-36); BLOOD UREA NITROGEN 20 mg/dl (7-17); GFR NON-AFRICAN AMERICAN 38
[2018-12-10 11:44] LABS: B-TYPE NATRIURETIC PEPTIDE 63.1 pg/ml (0-900)
[2018-12-10 11:56] LABS: INR 0.9; PROTHROMBIN TIME 10.6 Seconds (9.8-13.1)
[2018-12-10 11:57] LABS: PARTIAL THROMBOPLASTIN TIME 28.6 Seconds (25.6-37.1)
--- NOTE | 2018-12-10 12:37 | RAD ---
Date of service: 12/10/2018 HISTORY: Dyspnea. COMPARISON: 09/01/2018. FINDINGS: LUNGS: No active pulmonary disease. PLEURA: No significant pleural effusion identified, no pneumothorax apparent. CARDIOVASCULAR: No atherosclerotic calcification present Normal. OSSEOUS STRUCTURES: No significant abnormalities. VISUALIZED UPPER ABDOMEN: Normal. OTHER FINDINGS: None. IMPRESSION: No active disease. No significant interval change compared to the prior examination(s).
[2018-12-10] MEDS ORDERED: IPRATROPIUM IH PRN (17:24)
[2018-12-10] MEDS ORDERED: Promethazine DM 6.25 mg-15 mg/5 ml Syrup PO PRN (17:24)
[2018-12-10] MEDS: Fluticasone-Salmeterol 250-50mcg Diskus IH SCH (18:25)
--- NOTE | 2018-12-10 22:25 | CARD ---
APPROVED REPORT Date of service: 12/10/2018 EKG Measurement Heart [id number] <Conclusion> Sinus tachycardia Otherwise normal ECG
[2018-12-10] MEDS: Insulin Regular 100 units/ml SC SCH (22:35)
[2018-12-11] MEDS: Fluticasone-Salmeterol 250-50mcg Diskus IH SCH ×2 (06:18→17:04)
[2018-12-11] MEDS: diltiaZEM 120 mg/24 Hours CD Cap PO SCH (08:35)
[2018-12-11] MEDS: BEPOTASTINE BESILATE BOTHEYES SCH (08:36)
[2018-12-11] MEDS: Insulin Regular 100 units/ml SC SCH ×4 (08:38→22:18)
[2018-12-11] MEDS: Promethazine DM 12.5 mg-30 mg/10 ml Syrup PO PRN (11:35)
[2018-12-11] MEDS: Albuterol 0.083% Inhal Sol (2.5 mg/3 mL) UD IH PRN (11:45)
[2018-12-12 06:07] LABS: LYMPH # 0.6 K/uL (1.0-4.3); LYMPH % 3.1 % (20.0-40.0); MEAN CELL VOLUME 90.3 fl (81.0-99.0); MEAN CORPUSCULAR HEMOGLOBIN 29.6 pg (27.0-31.0); MEAN CORPUSCULAR HGB CONC 32.8 g/dL (33.0-37.0); MEAN PLATELET VOLUME 9.9 fl (7.2-11.7); MONO # 0.3 K/uL (0.0-0.8); MONO % 1.5 % (0.0-10.0); NEUT # 18.4 K/uL (1.8-7.0); NEUT % 95.4 % (50.0-75.0); PLATELET COUNT 210 K/uL (130-400); RBC 4.06 Mil/uL (3.80-5.20); RED CELL DISTRIBUTION WIDTH 13.9 % (11.5-14.5); WHITE BLOOD COUNT 19.3 K/uL (4.8-10.8)
[2018-12-12 06:32] LABS: ALB/GLOB RATIO 1.3 (1.0-2.1); ALBUMIN 3.8 g/dL (3.5-5.0); CALCIUM 9.6 mg/dL (8.4-10.2)
[2018-12-12] MEDS: Fluticasone-Salmeterol 250-50mcg Diskus IH SCH ×2 (06:42→17:33)
[2018-12-12] MEDS: BEPOTASTINE BESILATE BOTHEYES SCH (09:07)
[2018-12-12] MEDS: diltiaZEM 120 mg/24 Hours CD Cap PO SCH (09:08)
[2018-12-12] MEDS: Insulin Regular 100 units/ml SC SCH ×5 (09:11→22:00)
[2018-12-12] MEDS: Promethazine DM 12.5 mg-30 mg/10 ml Syrup PO PRN ×2 (09:14→17:34)
[2018-12-12] MEDS: Albuterol 0.083% Inhal Sol (2.5 mg/3 mL) UD IH PRN (09:25)
[2018-12-12 09:37] LABS: ANISOCYTOSIS SLIGHT; LARGE PLATELETS PRESENT; LYMPHOCYTE 2 % (20-50); MONOCYTE 2 % (0-10); NEUTROPHIL 96 % (42-75); PLATELET ESTIMATE NORMAL (NORMAL); TOTAL CELLS COUNTED 100
--- NOTE | 2018-12-12 10:59 | RAD ---
Date of service: 12/12/2018 HISTORY: Rule out pneumonia COMPARISON: Comparison chest 12/10/2018. Comparison also made with CT scan chest 08/10/2014 TECHNIQUE: 1 view obtained. FINDINGS: LUNGS: Persistent elevation right hemidiaphragm consistent with eventration. Suspect mild right basilar atelectasis. PLEURA: As above. No pneumothorax apparent. CARDIOVASCULAR: No aortic atherosclerotic calcification present. Normal cardiac size. No pulmonary vascular congestion. OSSEOUS STRUCTURES: No significant abnormalities. VISUALIZED UPPER ABDOMEN: Normal. OTHER FINDINGS: None. IMPRESSION: Persistent elevation right hemidiaphragm consistent with eventration. Suspect mild right basilar atelectasis.
[2018-12-12] MEDS ORDERED: Albuterol 0.083% Inhal Sol (2.5 mg/3 mL) UD IH SCH (13:30)
[2018-12-12] MEDS: Albuterol 0.083% Inhal Sol (2.5 mg/3 mL) UD IH SCH ×3 (15:38→23:43)
--- NOTE | 2018-12-13 01:46 | CP.PCM.HP ---
History of Present Illness - History of Present Illness History of Present Illness: CC: Shortness of breath. HPI: 66 y/o Female Pt with a PMH of COPD, DM, and HTN presented to the ED with increasing dyspnea from acute asthma exacerbation. The pt is currently on Atrov ent, Symbicort, and Ventolin at home. At present, the pt states feeling dyspnea and reports that her cough has not improved. PMH: Anxiety, Arthritis, Asthma, Bipolar Disorder, COPD, Depression, Diabetes type 2 with hyperglycemia, HTN, Hypercholesterolemia, Kidney Stones (RIGHT), Peripheral Edema. Allergies: Pollen. Subjective Review of Systems: reviewed and no additional remarkable complaints except dyspnea, occasional rapid heart rate, and a persistent cough. Objective Vital Signs Stable Appears: Non-toxic, No Acute Distress. Head Exam: NORMAL INSPECTION, normocephalic. Eye Exam: Normal appearance, PERRLA, EOMI. Respiratory Exam: Tachypnea, Wheezing bilaterally. Cardiovascular Exam: +S1, +S2; rate slightly rapid. GI & Abdominal Exam: Soft, non-tender, non-distended. Neurological Exam: Alert, Awake, Oriented x3. Psychiatric exam: Normal Affect, Normal Mood Skin Exam: Normal Color, Warm Assessment/Impression/Plan: 1.) Acute Asthma Exacerbation -On Solumedrol 60 mg Q12. -Nebulizers for dyspnea. -Phenergan to control persistent cough. -Pt tachycardic; added on beta wilmer for rate control. -CXR to r/o lower respiratory associated complications. Present on Admission - Present on Admission Any Indicators Present on Admission: No Past Patient History - Infectious Disease Hx of Infectious Diseases: None - Past Medical History & Family History Past Medical History?: Yes - Past Social History Smoking Status: Never Smoked - CARDIAC Hx Cardiac Disorders: Yes Hx Hypertension: Yes Other/Comment: Tachycardia - PULMONARY Hx Respiratory Disorders: Yes Hx Asthma: Yes Hx Chronic Obstructive Pulmonary Disease (COPD): Yes - NEUROLOGICAL Hx Neurological Disorder: No - HEENT Hx HEENT Problems: Yes Hx Cataracts: Yes (sx) - RENAL Hx Chronic Kidney Disease: Yes Hx Kidney Stones: Yes (2014) - ENDOCRINE/METABOLIC Hx Endocrine Disorders: Yes Hx Diabetes Mellitus Type 2: Yes - HEMATOLOGICAL/ONCOLOGICAL Hx Blood Disorders: No Hx Human Immunodeficiency Virus (HIV): No - INTEGUMENTARY Hx Dermatological Problems: No - MUSCULOSKELETAL/RHEUMATOLOGICAL Hx Falls: No - GASTROINTESTINAL Hx Gastrointestinal Disorders: No - GENITOURINARY/GYNECOLOGICAL Hx Genitourinary Disorders: No - PSYCHIATRIC Hx Psychophysiologic Disorder: No Hx Substance Use: No - SURGICAL HISTORY Hx Surgeries: Yes Hx Cataract Extraction: Yes (BILATERAL) Other/Comment: CYSTO WITH STENTS X2 - ANESTHESIA Hx Anesthesia: Yes Hx Anesthesia Reactions: No Hx Malignant Hyperthermia: No Meds Allergies/Adverse Reactions: Allergies Allergy/AdvReac Type Severity Reaction Status Date / Time POLLEN Allergy Intermediate ITCHING Uncoded 07/05/17 13:25 Results - Vital Signs Recent Vital Signs: Last Vital Signs Temp 98.1 F 12/13/18 00:56 Pulse 94 H 12/13/18 00:56 Resp 18 12/13/18 00:56 BP 137/73 12/13/18 00:56 Pulse Ox 95 12/13/18 00:56 - Labs Result Diagrams: 12/12/18 04:25 12/12/18 04:25 Labs: Laboratory Results - last 24 hr 12/12/18 12/12/18 12/12/18 04:25 04:25 05:58 WBC 19.3 H D RBC 4.06 Hgb 12.0 Hct 36.7 MCV 90.3 MCH 29.6 MCHC 32.8 L RDW 13.9 Plt Count 210 MPV 9.9 Neut % (Auto) 95.4 H Lymph % (Auto) 3.1 L [place] % (Auto) 1.5 Eos % (Auto) 0.0 Baso % (Auto) 0.0 Neut # (Auto) 18.4 H Lymph # (Auto) 0.6 L [place] # (Auto) 0.3 Eos # (Auto) 0.0 Baso # (Auto) 0.0 Neutrophils % (Manual) 96 H Lymphocytes % (Manual) 2 L Monocytes % (Manual) 2 Platelet Estimate Normal Large Platelets Present Anisocytosis (manual) Slight Sodium 139 Potassium 4.2 Chloride 105 Carbon Dioxide 27 Anion Gap 11 BUN 29 H Creatinine 1.3 H Est GFR ( Amer) 50 Est GFR (Non-Af Amer) 41 POC Glucose (mg/dL) 203 H Random Glucose 204 H Calcium 9.6 Total Bilirubin 0.3 AST 28 ALT 36 Alkaline Phosphatase 101 Total Protein 6.8 Albumin 3.8 Globulin 3.0 Albumin/Globulin Ratio 1.3 12/12/18 12/12/18 12/12/18 11:18 16:24 21:42 WBC RBC Hgb Hct MCV MCH MCHC RDW Plt Count MPV Neut % (Auto) Lymph % (Auto) [place] % (Auto) Eos % (Auto) Baso % (Auto) Neut # (Auto) Lymph # (Auto) [place] # (Auto) Eos # (Auto) Baso # (Auto) Neutrophils % (Manual) Lymphocytes % (Manual) Monocytes % (Manual) Platelet Estimate Large Platelets Anisocytosis (manual) Sodium Potassium Chloride Carbon Dioxide Anion Gap BUN Creatinine Est GFR ( Amer) Est GFR (Non-Af Amer) POC Glucose (mg/dL) 304 H 224 H 241 H Random Glucose Calcium Total Bilirubin AST ALT Alkaline Phosphatase Total Protein Albumin Globulin Albumin/Globulin Ratio Assessment & Plan (1) Asthma exacerbation Status: Acute
--- NOTE | 2018-12-13 01:59 | CP.PCM.PN ---
Subjective - Date & Time of Evaluation Date of Evaluation: 12/12/18 Time of Evaluation: 11:00 - Subjective Subjective: Pt seen and assessed at bedside. Reports feeling better; states breathing has improved since 1 day ago. However, pt reports dyspnea on ambulation occasionally. Subjective Review of Systems: reviewed and no additional remarkable complaints except occasional coughing and dyspnea. Objective Vital Signs Stable Appears: Non-toxic, No Acute Distress. Head Exam: NORMAL INSPECTION, normocephalic. Eye Exam: Normal appearance, PERRLA, EOMI. Respiratory Exam: Respirations easy and non-labored, Wheezing bilaterally (though improved from previous exam 1 day ago). Cardiovascular Exam: +S1, +S2; rate slightly rapid. GI & Abdominal Exam: Soft, non-tender, non-distended. Neurological Exam: Alert, Awake, Oriented x3. Psychiatric exam: Normal Affect, Normal Mood Skin Exam: Normal Color, Warm Assessment/Impression/Plan: 1.) Acute Asthma Exacerbation -Clinically improving; respiratory status has improved. -Continue Solumedrol 60 mg Q12h. -Nebulizers for dyspnea. -CXR revealed mild bibasilar atelectatis. -CBC, CMP, procalcitonin for the morning. -For possible discharge if respiratory status remains stable. Objective - Vital Signs/Intake and Output Vital Signs (last 24 hours): Temp Pulse Resp BP Pulse Ox 98.1 F 94 H 18 137/73 95 12/13/18 00:56 12/13/18 00:56 12/13/18 00:56 12/13/18 00:56 12/13/18 00:56 Intake and Output: 12/12/18 12/13/18 18:59 06:59 Intake Total 1400 Balance 1400 - Medications Medications: Current Medications Albuterol Sulfate (Albuterol 0.083% Inhal Sugar (2.5 Mg/3 Ml) Ud) 2.5 mg IH RQ4 [facility] Last Admin: 12/12/18 23:43 Dose: 2.5 mg Allopurinol (Zyloprim) 100 mg PO DAILY [facility] Last Admin: 12/12/18 09:16 Dose: 100 mg Aspirin (Ecotrin) 81 mg PO DAILY [facility] Last Admin: 12/12/18 09:10 Dose: 81 mg Atorvastatin Calcium (Lipitor) 40 mg PO HS [facility] Last Admin: 12/12/18 21:24 Dose: 40 mg Diltiazem HCl (Cardizem Cd) 120 mg PO DAILY [facility] Last Admin: 12/12/18 09:08 Dose: 120 mg Doxazosin Mesylate (Cardura) 2 mg PO HS [facility] Last Admin: 12/12/18 21:24 Dose: 2 mg Furosemide (Lasix) 20 mg PO DAILY [facility] Last Admin: 12/12/18 09:12 Dose: 20 mg Home Med (Bepotastine Besilate [Bepreve]) 1 drop BOTHEYES DAILY [facility] Last Admin: 12/12/18 09:07 Dose: 1 drop Home Med (Ipratropium [Atrovent Hfa]) 2 puff IH Q8 PRN PRN Reason: Shortness of Breath Hydralazine HCl (Apresoline) 25 mg PO Q8 PRN PRN Reason: Blood pressure >150 Insulin Human Regular (Humulin R) 0 units SC ACCU-CHECK [facility]; Protocol Last Admin: 12/12/18 17:30 Dose: 4 units Losartan Potassium (Cozaar) 100 mg PO DAILY [facility] Last Admin: 12/12/18 09:10 Dose: 100 mg Methylprednisolone (Solu-Medrol) 60 mg IVP Q12H [facility] Last Admin: 12/12/18 21:26 Dose: 60 mg Metoprolol Tartrate (Lopressor) 25 mg PO Q12 [facility] Last Admin: 12/12/18 21:25 Dose: 25 mg Montelukast Sodium (Singulair) 10 mg PO HS [facility] Last Admin: 12/12/18 21:24 Dose: 10 mg Promethazine HCl/Dextromethorphan (Phenergan Dm Syrup) 10 ml PO Q8 PRN PRN Reason: Cough Last Admin: 12/12/18 17:34 Dose: 10 ml Fluticasone/Salmeterol (Advair Diskus 250/50) 1 puff IH Q12H [facility] Last Admin: 12/12/18 17:33 Dose: 1 puff Sitagliptin Phosphate (Januvia) 50 mg PO DAILY [facility] Last Admin: 12/12/18 09:12 Dose: 50 mg - Labs Labs: 12/12/18 04:25 12/12/18 04:25 PT 10.6 Seconds (9.8-13.1) 12/10/18 11:15 INR 0.9 12/10/18 11:15 APTT 28.6 Seconds (25.6-37.1) 12/10/18 11:15 Assessment and Plan (1) Asthma exacerbation Status: Acute
[2018-12-13] MEDS: Albuterol 0.083% Inhal Sol (2.5 mg/3 mL) UD IH SCH ×3 (03:53→11:10)
[2018-12-13 05:51] LABS: HEMOGLOBIN 12.2 g/dL (12.0-16.0); LYMPH # 0.9 K/uL (1.0-4.3); LYMPH % 5.4 % (20.0-40.0); MEAN CELL VOLUME 88.9 fl (81.0-99.0); MEAN CORPUSCULAR HEMOGLOBIN 29.9 pg (27.0-31.0); MEAN CORPUSCULAR HGB CONC 33.7 g/dL (33.0-37.0); MEAN PLATELET VOLUME 9.8 fl (7.2-11.7); MONO # 0.8 K/uL (0.0-0.8); MONO % 4.9 % (0.0-10.0); NEUT # 15.1 K/uL (1.8-7.0); NEUT % 89.7 % (50.0-75.0); NRBC % 0.1 % (0.0-0.0); RBC 4.06 Mil/uL (3.80-5.20); RED CELL DISTRIBUTION WIDTH 14.3 % (11.5-14.5); WHITE BLOOD COUNT 16.9 K/uL (4.8-10.8)
[2018-12-13 06:10] LABS: ALB/GLOB RATIO 1.3 (1.0-2.1); ALBUMIN 3.9 g/dL (3.5-5.0); CALCIUM 9.7 mg/dL (8.4-10.2)
[2018-12-13] MEDS: Fluticasone-Salmeterol 250-50mcg Diskus IH SCH (06:24)
[2018-12-13] MEDS: Insulin Regular 100 units/ml SC SCH ×2 (06:25→11:38)
[2018-12-13 08:03] VITALS: RESP 18; O2SAT 90
[2018-12-13] MEDS: diltiaZEM 120 mg/24 Hours CD Cap PO SCH (08:57)
[2018-12-13] MEDS: Promethazine DM 12.5 mg-30 mg/10 ml Syrup PO PRN (09:02)
[2018-12-13] MEDS: BEPOTASTINE BESILATE BOTHEYES SCH (09:09)
[2018-12-13 12:22] VITALS: BP 128/73; PULSE 108; TEMP 98.2
--- NOTE | 2018-12-13 20:03 | CP.PCM.DIS ---
Provider - Provider Date of Admission: 12/12/18 11:55 Attending physician: Hermelindo Andrew MD Time Spent in preparation of Discharge (in minutes): 30 Diagnosis - Discharge Diagnosis (1) Asthma exacerbation Status: Acute Hospital Course - Lab Results Lab Results: Most Recent Lab Values WBC 16.9 K/uL (4.8-10.8) H 12/13/18 04:25 RBC 4.06 Mil/uL (3.80-5.20) 12/13/18 04:25 Hgb 12.2 g/dL (12.0-16.0) 12/13/18 04:25 Hct 36.1 % (34.0-47.0) 12/13/18 04:25 MCV 88.9 fl (81.0-99.0) 12/13/18 04:25 MCH 29.9 pg (27.0-31.0) 12/13/18 04:25 MCHC 33.7 g/dL (33.0-37.0) 12/13/18 04:25 RDW 14.3 % (11.5-14.5) 12/13/18 04:25 Plt Count 210 K/uL (130-400) 12/13/18 04:25 MPV 9.8 fl (7.2-11.7) 12/13/18 04:25 Neut % (Auto) 89.7 % (50.0-75.0) H 12/13/18 04:25 Lymph % (Auto) 5.4 % (20.0-40.0) L 12/13/18 04:25 [place] % (Auto) 4.9 % (0.0-10.0) 12/13/18 04:25 Eos % (Auto) 0.0 % (0.0-4.0) 12/13/18 04:25 Baso % (Auto) 0.0 % (0.0-2.0) 12/13/18 04:25 Neut # (Auto) 15.1 K/uL (1.8-7.0) H 12/13/18 04:25 Lymph # (Auto) 0.9 K/uL (1.0-4.3) L 12/13/18 04:25 [place] # (Auto) 0.8 K/uL (0.0-0.8) 12/13/18 04:25 Eos # (Auto) 0.0 K/uL (0.0-0.7) 12/13/18 04:25 Baso # (Auto) 0.0 K/uL (0.0-0.2) 12/13/18 04:25 Neutrophils % (Manual) 96 % (42-75) H 12/12/18 04:25 Lymphocytes % (Manual) 2 % (20-50) L 12/12/18 04:25 Monocytes % (Manual) 2 % (0-10) 12/12/18 04:25 Platelet Estimate Normal (NORMAL) 12/12/18 04:25 Large Platelets Present 12/12/18 04:25 Anisocytosis (manual) Slight 12/12/18 04:25 PT 10.6 Seconds (9.8-13.1) 12/10/18 11:15 INR 0.9 12/10/18 11:15 APTT 28.6 Seconds (25.6-37.1) 12/10/18 11:15 pCO2 36 mm/Hg (35-45) 12/10/18 10:54 pO2 76 mm/Hg (80-100) L 12/10/18 10:54 HCO3 28.6 mmol/L (21-28) H 12/10/18 10:54 ABG pH 7.50 (7.35-7.45) H 12/10/18 10:54 ABG Total CO2 29.2 mmol/L (22-28) H 12/10/18 10:54 ABG O2 Saturation 99.9 % (95-98) H 12/10/18 10:54 ABG Base Excess 4.8 mmol/L (-2.0-3.0) H 12/10/18 10:54 Damien Test Yes 12/10/18 10:54 ABG Potassium 4.0 mmol/L (3.6-5.2) 12/10/18 10:54 A-a O2 Difference 29.0 mm/Hg 12/10/18 10:54 Sodium 143.0 mmol/L (132-148) 12/10/18 10:54 Chloride 107.0 mmol/L (98-107) 12/10/18 10:54 Glucose 193 mg/dL (65-105) H 12/10/18 10:54 Lactate 3.0 mmol/L (0.7-2.1) H 12/10/18 10:54 FiO2 21.0 % 12/10/18 10:54 Sodium 139 mmol/l (132-148) 12/13/18 04:25 Potassium 3.6 MMOL/L (3.6-5.0) 12/13/18 04:25 Chloride 104 mmol/L (98-107) 12/13/18 04:25 Carbon Dioxide 25 mmol/L (22-30) 12/13/18 04:25 Anion Gap 14 (10-20) 12/13/18 04:25 BUN 37 mg/dl (7-17) H 12/13/18 04:25 Creatinine 1.7 mg/dl (0.7-1.2) H 12/13/18 04:25 Est GFR ( Amer) 36 12/13/18 04:25 Est GFR (Non-Af Amer) 30 12/13/18 04:25 POC Glucose (mg/dL) 259 mg/dL (65-110) H 12/13/18 10:49 Random Glucose 173 mg/dL (65-105) H 12/13/18 04:25 Calcium 9.7 mg/dL (8.4-10.2) 12/13/18 04:25 Total Bilirubin 0.3 mg/dl (0.2-1.3) 12/13/18 04:25 AST 28 U/L (14-36) 12/13/18 04:25 ALT 31 U/L (9-52) 12/13/18 04:25 Alkaline Phosphatase 109 U/L (38-126) 12/13/18 04:25 Troponin I < 0.0120 ng/mL (0.00-0.120) 12/10/18 11:15 NT-Pro-B Natriuret Pep 63.1 pg/ml (0-900) 12/10/18 11:15 Total Protein 6.9 G/DL (6.3-8.2) 12/13/18 04:25 Albumin 3.9 g/dL (3.5-5.0) 12/13/18 04:25 Globulin 3.0 gm/dL (2.2-3.9) 12/13/18 04:25 Albumin/Globulin Ratio 1.3 (1.0-2.1) 12/13/18 04:25 Procalcitonin 0.08 NG/ML (0.19-0.49) L 12/13/18 04:25 Arterial Blood Potassium 4.0 mmol/L (3.6-5.2) 12/10/18 10:54 - Hospital Course Hospital Course: 63 y/o Female Pt with a PMH of COPD, DM, and HTN presented to the ED with increasing dyspnea from acute asthma exacerbation. patient admitted and treated with Iv solumedrol patient improved throughout stay patient discharged in stable condition with rx Discharge Exam - Head Exam Head Exam: ATRAUMATIC, NORMAL INSPECTION, NORMOCEPHALIC - Eye Exam Eye Exam: Normal appearance - Respiratory Exam Respiratory Exam: Clear to PA & Lateral, NORMAL BREATHING PATTERN - Cardiovascular Exam Cardiovascular Exam: +S1, +S2 - GI/Abdominal Exam GI & Abdominal Exam: Unremarkable - Extremities Exam Extremities exam: normal inspection - Neurological Exam Neurological exam: Alert, Oriented x3 - Psychiatric Exam Psychiatric exam: Normal Affect, Normal Mood - Skin Skin Exam: Normal Color, Warm Discharge Plan - Discharge Medications Prescriptions: Methylprednisolone [Medrol Dose Pack (21 tabs)] 4 mg PO DAILY #21 mg - Follow Up Plan Condition: STABLE Disposition: HOME/ ROUTINE Instructions: Exacerbation of COPD (DC), Asthma (DC) Additional Instructions: follow up with in 1 week Referrals: Hermelindo Andrew MD [Family Provider] -
--- NOTE | 2018-12-20 12:08 | PQF ---
PROVIDER RESPONSE TEXT: Moderate persistent asthma with exacerbations REVIEWER QUERY TEXT: Asthma Specificity and Type Asthma Exacerbation is documented in the Medical Record. Please specify the type Such as: -- Mild intermittent -- Mild persistent -- Moderate persistent -- Severe persistent -- Exercise induced bronchospasm -- Cough variant asthma -- Other, please specify The patient's Clinical Indicators include: Admitted with dyspnea and wheezing. History of Asthma and COPD. CXR: No acute disease Rx: Solumedrol, Albuterol, Advair Diskus, Atrovent HFA, Singulair Query created by: Vinita Ruiz on 12/13/2018 1:03 PM Electronically signed by: Tho Stevens APN 12/20/2018 12:05 PM
--- NOTE | 2018-12-20 12:08 | PQF ---
PROVIDER RESPONSE TEXT: Chronic kidney disease stage 3 REVIEWER QUERY TEXT: Kidney Disease, Chronic CKD Stage PMH: Chronic Kidney Disease (CKD) is documented in the Medical Record. Please specify the disease st age (includes probable or suspected) Such as: -- Chronic kidney disease Stage 1 -- Chronic kidney disease Stage 2 -- Chronic kidney disease Stage 3 -- Chronic kidney disease Stage 4 -- Chronic kidney disease Stage 5 -- Chronic kidney disease Stage 5, requiring dialysis -- End Stage Renal Disease -- Other, please specify Stages are defined by the [employer] as follows: CKD Stage I GFR >= 90 ml / min per 1.73 m2 and persistent albuminuria CKD Stage 2 GFR between 60 and 89 with persistent albuminuria CKD Stage 3 GFR between 30 and 59 CKD Stage 4 GFR between 15 and 29 CKD Stage 5 GFR between <15 or End Stage Renal Disease The patient's Clinical Indicators include: BUN 20, 29, 37 Creatinine 1.4, 1.3, 1.7 GFR: 38, 41, 30 Query created by: Vinita Ruiz on 12/13/2018 1:10 PM Electronically signed by: Tho Stevens APN 12/20/2018 12:05 PM
--- NOTE | 2018-12-20 12:08 | PQF ---
PROVIDER RESPONSE TEXT: Confirmed, treated and resolved. Exacerbation has been stabilized. REVIEWER QUERY TEXT: Conflicting Documentation Clarification A single mention or documentation of multiple diagnoses for the same clinical presentation appears in the record. Please clarify the diagnosis/diagnoses. COPD stable versus COPD exacerbation ER: COPD exacerbation Please also document if the condition is: -- Confirmed and current -- Confirmed, treated and resolved -- Ruled out -- Other, please specify The patient's Clinical Indicators include: Admitted with dyspnea, and wheezing. CXR: No acute disease Rx: Solumedrol, Albuterol, Advair Diskus, Atrovent HFA, Singulair Query created by: Vinita Ruiz on 12/13/2018 1:08 PM Electronically signed by: Tho Stevens APN 12/20/2018 12:05 PM
== END 2018-12-13 14:14 | disposition home or self-care (01) | DRG 202 ==
LOC: H.ER 10:36 → H.ERHOLD 13:00 → H.TEL 17:04 → OBSVTOIN 12-12 11:55
PROVIDERS: ADMIT Family Medicine; ATTEND Family Medicine
PROC: 3E0F73Z Introduction of Anti-inflammatory into Respiratory Tract, Via Natural or Artificial Opening (ICD-10-PCS; principal; 2018-12-12)
DX: J45.41 Moderate persistent asthma with (acute) exacerbation (principal); J44.1 Chronic obstructive pulmonary disease with (acute) exacerbation; E11.22 Type 2 diabetes mellitus with diabetic chronic kidney disease; I12.9 Hypertensive chronic kidney disease with stage 1 through stage 4 chronic kidney disease, or unspecified chronic kidney disease; N18.3 Chronic kidney disease, stage 3 (moderate); E11.65 Type 2 diabetes mellitus with hyperglycemia; E78.00 Pure hypercholesterolemia, unspecified; M19.90 Unspecified osteoarthritis, unspecified site; F41.9 Anxiety disorder, unspecified; F31.9 Bipolar disorder, unspecified; Z79.82 Long term (current) use of aspirin; Z79.51 Long term (current) use of inhaled steroids; Z79.84 Long term (current) use of oral hypoglycemic drugs; Z87.442 Personal history of urinary calculi